=== PATIENT | male | born 1975 | race Two or more races ===

== ENCOUNTER → 2016-06-22 | Outpatient (CLI) | payer BC ==
[2016-06-22 09:39] LABS: BUN/Creatinine Ratio 22.2; Calcium 8.8 mg/dL (8.5-10.1)
== END | disposition home or self-care (01) ==
LOC: LAB 08:08
PROVIDERS: ATTEND Internal Medicine
DX: I10 Essential (primary) hypertension (principal); E11.9 Type 2 diabetes mellitus without complications
CPT/HCPCS: 36415; 80048; 80061; 83036

== ENCOUNTER → 2017-10-07 | Outpatient (CLI) | payer BC ==
[2017-10-07 10:28] LABS: Basophils # (auto) 0.1 uL; Basophils % (auto) 0.8 % (0.0-2.0); Eosinophils # (auto) 0.3 uL; Eosinophils % (auto) 3.6 % (0.0-7.0); Hematocrit 43.9 % (41.0-53.0); Hemoglobin 14.3 g/dL (13.5-17.5); Lymphocytes # (auto) 1.7 uL; Lymphocytes % (auto) 22.4 % (10.0-50.0); Mean Corpuscular Hemoglobin 29.9 pg (28.0-32.0); Mean Corpuscular Hgb Conc. 32.7 g/dL (32.0-36.0); Mean Corpuscular Volume 91.4 fL (80.0-100.0); Monocytes # (auto) 0.6 uL; Monocytes % (auto) 7.6 % (0.0-12.0); Neutrophils # (auto) 4.9 uL; Neutrophils % (auto) 65.6 % (37.0-80.0); Platelet Count (auto) 259 10^3/uL (140-450); Red Cell Distribution Width 13.7 % (11.8-14.3); White Blood Cell 7.5 10^3/uL (4.4-10.8)
[2017-10-07 10:42] LABS: Urine Bacteria FEW /hpf (None Seen); Urine Blood Negative /uL (Negative); Urine Hyaline Cast FEW /lpf (0 - 2); Urine Specific Gravity 1.013 (1.001-1.035); Urine Sperm PRESENT /hpf (None Seen); Urine WBC <1 /hpf (0 - 3)
[2017-10-07 11:56] LABS: Albumin 3.4 g/dL (3.4-5.0); Bilirubin, Total 0.3 mg/dL (0.2-1.0); Calcium 9.3 mg/dL (8.5-10.1); Potassium 5.3 mmol/L (3.5-5.1); Total Protein 7.9 g/dL (6.4-8.2)
== END | disposition home or self-care (01) ==
LOC: LAB 10:08
PROVIDERS: ATTEND Physician Assistant
DX: E11.22 Type 2 diabetes mellitus with diabetic chronic kidney disease (principal); I12.9 Hypertensive chronic kidney disease with stage 1 through stage 4 chronic kidney disease, or unspecified chronic kidney disease; N18.3 Chronic kidney disease, stage 3 (moderate); E78.2 Mixed hyperlipidemia; N52.9 Male erectile dysfunction, unspecified
CPT/HCPCS: 36415; 80053; 80061; 81001; 83036; 84403; 85025

== ENCOUNTER 2018-02-25 14:44 | Inpatient (IN) | payer BC ==
[~2018-02-25] VITALS: Ht 185.4 cm; Wt 125.5 kg
[2018-02-25] MEDS ORDERED: SODIUM CHLORIDE 0.9% 1,000 ML IV ONE (15:30)
[2018-02-25] MEDS ORDERED: InsuLIN REG 1unit/0.01ml Soln (100units/ml) IV ONE (15:45)
[2018-02-25 17:14] LABS: Basophils # (auto) 0 uL; Basophils % (auto) 0.2 % (0.0-2.0); Eosinophils # (auto) 0.1 uL; Eosinophils % (auto) 2.7 % (0.0-7.0); Hematocrit 40.7 % (41.0-53.0); Hemoglobin 13.4 g/dL (13.5-17.5); Lymphocytes # (auto) 0.4 uL; Lymphocytes % (auto) 7.8 % (10.0-50.0); Mean Corpuscular Hemoglobin 29.6 pg (28.0-32.0); Mean Corpuscular Hgb Conc. 32.8 g/dL (32.0-36.0); Mean Corpuscular Volume 90.2 fL (80.0-100.0); Monocytes # (auto) 0.6 uL; Monocytes % (auto) 12.9 % (0.0-12.0); Neutrophils # (auto) 3.5 uL; Neutrophils % (auto) 76.4 % (37.0-80.0); Platelet Count (auto) 201 10^3/uL (140-450); Red Blood Cells 4.52 10^6/uL (4.5-5.90); Red Cell Distribution Width 12.7 % (11.8-14.3); White Blood Cell 4.6 10^3/uL (4.4-10.8)
[2018-02-25] MEDS ORDERED: cefTRIAXone 1GM/10ml IVPUSH 10 ML IV ONE (17:30)
[2018-02-25 17:44] LABS: Potassium 5.3 mmol/L (3.5-5.1)
[2018-02-25 17:45] LABS: BUN/Creatinine Ratio 12.1; Bilirubin, Total 0.3 mg/dL (0.2-1.0); Calcium 8.5 mg/dL (8.5-10.1)
[2018-02-25 17:46] LABS: Albumin 3.3 g/dL (3.4-5.0)
[2018-02-25] MEDS ORDERED: HYDROcodone-ACET 5/325MG TAB PO PRN (21:00)
[2018-02-25] MEDS ORDERED: ONDANSETRON HCL 4 MG/2 ML VIAL IV PRN (21:00)
[2018-02-25] MEDS ORDERED: DEXTROSE (50%) 50ML SYRG IV PRN (21:00)
[2018-02-25] MEDS ORDERED: TEMAZEPAM 15 MG CAP PO PRN (21:00)
[2018-02-25] MEDS ORDERED: ACETAMINOPHEN 325 MG TAB PO PRN (21:00)
[2018-02-25] MEDS: SODIUM CHLORIDE 0.9% 1,000 ML IV SCH (21:13)
[2018-02-25] MEDS: CLINDAMYCIN 600MG IV 50 ML IV SCH (22:19)
[2018-02-26] MEDS: ACCU-CHEK COMFORT CURVE STRIP VI SCH ×4 (00:03→18:12)
[2018-02-26] MEDS: InsuLIN REG 1unit/0.01ml Soln (100units/ml) SC SCH ×4 (00:03→18:19)
[2018-02-26 01:22] LABS: Urine Bacteria NONE SEEN /hpf (None Seen); Urine Blood Negative /uL (Negative); Urine Specific Gravity 1.012 (1.001-1.035); Urine Sperm PRESENT /hpf (None Seen); Urine WBC 25 /hpf (0 - 3)
[2018-02-26] MEDS: CLINDAMYCIN 600MG IV 50 ML IV SCH ×3 (05:46→21:42)
[2018-02-26 07:22] LABS: Hematocrit 39.5 % (41.0-53.0); Hemoglobin 13.3 g/dL (13.5-17.5); Mean Corpuscular Hemoglobin 30.4 pg (28.0-32.0); Mean Corpuscular Hgb Conc. 33.7 g/dL (32.0-36.0); Mean Corpuscular Volume 90.4 fL (80.0-100.0); Platelet Count (auto) 176 10^3/uL (140-450); Red Blood Cells 4.37 10^6/uL (4.5-5.90); Red Cell Distribution Width 12.8 % (11.8-14.3); White Blood Cell 3.4 10^3/uL (4.4-10.8)
[2018-02-26 07:35] LABS: Basophils % (manual) 0 (0.0-2.0); Blast Cells 0; Metamyelocytes % 0; Myelocytes % 0; Promyelocytes % 0; Reactive Lymphocytes 0
[2018-02-26 07:45] LABS: Albumin 2.8 g/dL (3.4-5.0); Potassium 4.4 mmol/L (3.5-5.1)
[2018-02-26 07:47] LABS: Bilirubin, Total 0.2 mg/dL (0.2-1.0); Total Protein 7.2 g/dL (6.4-8.2)
[2018-02-26 08:07] LABS: Band Neutrophils % (manual) 1; Eosinophils % (manual) 8 (0-7); Lymphocytes % (manual) 21 (10.0-50.0); Monocytes % (manual) 11 (0-12)
[2018-02-26 09:00] VITALS: BP 120/71
[2018-02-26] MEDS: cefTRIAXone 1GM/10ml IVPUSH 10 ML IV SCH (09:58)
[2018-02-26] MEDS: SODIUM CHLORIDE 0.9% 1,000 ML IV SCH (10:19)
[2018-02-26 12:00] VITALS: BP 149/77
[2018-02-26 16:00] VITALS: BP 147/70
[2018-02-26 22:00] VITALS: BP 135/74
[2018-02-27] MEDS: ACCU-CHEK COMFORT CURVE STRIP VI SCH ×4 (00:06→17:41)
[2018-02-27] MEDS: SODIUM CHLORIDE 0.9% 1,000 ML IV SCH ×2 (00:06→12:22)
[2018-02-27] MEDS: InsuLIN REG 1unit/0.01ml Soln (100units/ml) SC SCH ×4 (00:07→17:42)
[2018-02-27 05:19] VITALS: BP 129/95
[2018-02-27] MEDS: CLINDAMYCIN 600MG IV 50 ML IV SCH ×3 (06:41→21:26)
[2018-02-27] MEDS: glipiZIDE 5 MG TAB PO SCH ×2 (06:42→17:42)
[2018-02-27 08:43] VITALS: BP 152/91
[2018-02-27] MEDS: cefTRIAXone 1GM/10ml IVPUSH 10 ML IV SCH (09:17)
[2018-02-27 12:10] VITALS: BP 165/101
[2018-02-27] MEDS ORDERED: AMLO10TA12 PO (13:11)
[2018-02-27] MEDS ORDERED: LOSA-46 PO (13:17)
[2018-02-27] MEDS ORDERED: CANA100T OR (13:17)
[2018-02-27] MEDS ORDERED: PIO30T PO (13:17)
[2018-02-27] MEDS ORDERED: PRE5T GT (13:17)
[2018-02-27] MEDS ORDERED: METF-929 PO (13:17)
[2018-02-27] MEDS ORDERED: ATOR40TA52 PO (13:17)
[2018-02-27] MEDS ORDERED: GABA100C9 PO (13:17)
[2018-02-27] MEDS ORDERED: ASPI-231 PO (13:17)
[2018-02-27 17:00] VITALS: BP 152/89
[2018-02-27] MEDS ORDERED: amLODIPine BESYLATE 5 MG TAB PO ONE (18:30)
[2018-02-27 21:18] VITALS: BP 139/85
[2018-02-27] MEDS: METOPROLOL TARTRATE 25 MG TAB PO SCH (21:28)
[2018-02-28] MEDS: InsuLIN REG 1unit/0.01ml Soln (100units/ml) SC SCH ×4 (00:19→17:47)
[2018-02-28] MEDS: ACCU-CHEK COMFORT CURVE STRIP VI SCH ×4 (00:20→17:49)
[2018-02-28] MEDS: SODIUM CHLORIDE 0.9% 1,000 ML IV SCH ×2 (02:36→15:39)
[2018-02-28 05:19] VITALS: BP 117/75
[2018-02-28] MEDS: glipiZIDE 5 MG TAB PO SCH ×2 (06:17→17:46)
[2018-02-28] MEDS: CLINDAMYCIN 600MG IV 50 ML IV SCH ×3 (06:17→22:17)
[2018-02-28 09:00] VITALS: BP 109/65
[2018-02-28] MEDS: cefTRIAXone 1GM/10ml IVPUSH 10 ML IV SCH (09:34)
[2018-02-28] MEDS: amLODIPine BESYLATE 5 MG TAB PO SCH (09:35)
[2018-02-28] MEDS: METOPROLOL TARTRATE 25 MG TAB PO SCH ×2 (09:37→22:00)
[2018-02-28 13:00] VITALS: BP 120/65
[2018-02-28 13:48] LABS: Protein, Urine 38.7 mg/dL (0.0-11.9)
[2018-02-28 16:39] VITALS: BP 126/80
[2018-02-28 22:00] VITALS: BP 130/76
[2018-03-01] MEDS: ACCU-CHEK COMFORT CURVE STRIP VI SCH ×3 (00:19→11:32)
[2018-03-01] MEDS: InsuLIN REG 1unit/0.01ml Soln (100units/ml) SC SCH ×3 (00:19→11:31)
[2018-03-01 05:00] VITALS: BP 101/61
[2018-03-01] MEDS: glipiZIDE 5 MG TAB PO SCH (06:32)
[2018-03-01] MEDS: CLINDAMYCIN 600MG IV 50 ML IV SCH (06:32)
[2018-03-01] MEDS: SODIUM CHLORIDE 0.9% 1,000 ML IV SCH (06:33)
[2018-03-01 08:40] VITALS: BP 139/92
[2018-03-01] MEDS: cefTRIAXone 1GM/10ml IVPUSH 10 ML IV SCH (09:00)
[2018-03-01] MEDS: amLODIPine BESYLATE 5 MG TAB PO SCH (09:46)
[2018-03-01] MEDS: METOPROLOL TARTRATE 25 MG TAB PO SCH (09:46)
[2018-03-01] MEDS ORDERED: CEFI200S2 PO (10:51)
[2018-03-01 10:56] VITALS: BP 144/84
[2018-03-01 12:07] VITALS: BP 147/86
== END 2018-03-01 12:05 | disposition home or self-care (01) | DRG 602 ==
LOC: ER 14:44 → OVERFLOW 14:45 → CENTRAL 02-26 08:33
PROVIDERS: ADMIT Nurse Practitioner; ATTEND Internal Medicine Pulmonary Disease
DX: L02.415 Cutaneous abscess of right lower limb (principal); N17.0 Acute kidney failure with tubular necrosis; L03.314 Cellulitis of groin; N18.4 Chronic kidney disease, stage 4 (severe); E44.0 Moderate protein-calorie malnutrition; E87.1 Hypo-osmolality and hyponatremia; E11.65 Type 2 diabetes mellitus with hyperglycemia; E11.22 Type 2 diabetes mellitus with diabetic chronic kidney disease; E78.5 Hyperlipidemia, unspecified; E83.51 Hypocalcemia; E66.9 Obesity, unspecified; B96.20 Unspecified Escherichia coli [E. coli] as the cause of diseases classified elsewhere; E11.42 Type 2 diabetes mellitus with diabetic polyneuropathy; D63.8 Anemia in other chronic diseases classified elsewhere; I12.9 Hypertensive chronic kidney disease with stage 1 through stage 4 chronic kidney disease, or unspecified chronic kidney disease; Z68.36 Body mass index [BMI] 36.0-36.9, adult; Z91.030 Bee allergy status; Z79.84 Long term (current) use of oral hypoglycemic drugs
CPT/HCPCS: 36415; 71046; 76775; 80053; 81001; 82570; 82962; 83036; 84156; 84300; 85007; 85025; 85027; 87040; 87077; 87186; 87205; 93005; 94761; 96361; 96374; 96375; A6257; J0696; J1815; J3490

== ENCOUNTER → 2018-03-17 | Outpatient (CLI) | payer BC ==
[~2018-03-17] MED LIST: AMLO10TA12 PO; ASPI-231 PO; ATOR40TA52 PO; CANA100T OR; CEFI200S2 PO; GABA100C9 PO; LOSA-46 PO; METF-929 PO; PIO30T PO; PRE5T GT
[2018-03-17 08:37] LABS: Basophils # (auto) 0.1 uL; Basophils % (auto) 0.9 % (0.0-2.0); Eosinophils # (auto) 0.2 uL; Eosinophils % (auto) 2.3 % (0.0-7.0); Hemoglobin 14.9 g/dL (13.5-17.5); Lymphocytes # (auto) 1.6 uL; Lymphocytes % (auto) 20.2 % (10.0-50.0); Mean Corpuscular Hemoglobin 30.7 pg (28.0-32.0); Mean Corpuscular Hgb Conc. 33.8 g/dL (32.0-36.0); Mean Corpuscular Volume 90.8 fL (80.0-100.0); Monocytes # (auto) 0.5 uL; Monocytes % (auto) 6.8 % (0.0-12.0); Neutrophils # (auto) 5.6 uL; Neutrophils % (auto) 69.8 % (37.0-80.0); Platelet Count (auto) 208 10^3/uL (140-450); Red Blood Cells 4.84 10^6/uL (4.5-5.90); Red Cell Distribution Width 12.9 % (11.8-14.3); White Blood Cell 8.1 10^3/uL (4.4-10.8)
[2018-03-17 08:40] LABS: Urine Bacteria FEW /hpf (None Seen); Urine Blood Negative /uL (Negative); Urine Specific Gravity 1.018 (1.001-1.035); Urine WBC 3 /hpf (0 - 3)
[2018-03-17 09:33] LABS: BUN/Creatinine Ratio 24.3; Calcium 9.3 mg/dL (8.5-10.1); Potassium 4.8 mmol/L (3.5-5.1); Uric Acid 10.7 mg/dL (3.5-7.2)
[2018-03-17 09:42] LABS: Protein, Urine 27.6 mg/dL (0.0-11.9)
== END | disposition home or self-care (01) ==
LOC: LAB 08:12
PROVIDERS: ATTEND Student in an Organized Health Care Education/Training Program
DX: E55.9 Vitamin D deficiency, unspecified (principal); N18.3 Chronic kidney disease, stage 3 (moderate); M10.9 Gout, unspecified; R80.9 Proteinuria, unspecified; R79.82 Elevated C-reactive protein (CRP)
CPT/HCPCS: 36415; 80048; 81001; 82306; 82570; 84156; 84550; 85025; 86038; 86160; 86256

== ENCOUNTER → 2018-08-26 | Outpatient (CLI) | payer BC ==
[2018-08-26 08:36] LABS: Urine Bacteria NONE SEEN /hpf (None Seen); Urine Blood Negative /uL (Negative); Urine Specific Gravity 1.018 (1.001-1.035); Urine WBC 2 /hpf (0 - 3)
[2018-08-26 08:37] LABS: Basophils # (auto) 0 uL; Basophils % (auto) 0.5 % (0.0-2.0); Eosinophils # (auto) 0.2 uL; Hematocrit 47.5 % (41.0-53.0); Hemoglobin 15.6 g/dL (13.5-17.5); Lymphocytes # (auto) 1.6 uL; Lymphocytes % (auto) 20.3 % (10.0-50.0); Mean Corpuscular Hemoglobin 30.5 pg (28.0-32.0); Mean Corpuscular Hgb Conc. 32.8 g/dL (32.0-36.0); Monocytes # (auto) 0.6 uL; Monocytes % (auto) 7.7 % (0.0-12.0); Neutrophils # (auto) 5.4 uL; Neutrophils % (auto) 69.5 % (37.0-80.0); Nucleated Red Blood Cells % 0.1 %; Platelet Count (auto) 257 10^3/uL (140-450); Red Blood Cells 5.11 10^6/uL (4.5-5.90); Red Cell Distribution Width 12.8 % (11.8-14.3); White Blood Cell 7.7 10^3/uL (4.4-10.8)
[2018-08-26 08:59] LABS: Albumin 3.5 g/dL (3.4-5.0); Calcium 9.7 mg/dL (8.5-10.1); Potassium 4.7 mmol/L (3.5-5.1)
[2018-08-26 09:10] LABS: BUN/Creatinine Ratio 19.4; Bilirubin, Total 0.6 mg/dL (0.2-1.0); Total Protein 8.2 g/dL (6.4-8.2)
== END | disposition home or self-care (01) ==
LOC: LAB 07:56
PROVIDERS: ATTEND Physician Assistant
DX: Z12.5 Encounter for screening for malignant neoplasm of prostate (principal); I12.9 Hypertensive chronic kidney disease with stage 1 through stage 4 chronic kidney disease, or unspecified chronic kidney disease; E11.22 Type 2 diabetes mellitus with diabetic chronic kidney disease; N18.3 Chronic kidney disease, stage 3 (moderate); E11.29 Type 2 diabetes mellitus with other diabetic kidney complication; E11.40 Type 2 diabetes mellitus with diabetic neuropathy, unspecified; E78.2 Mixed hyperlipidemia; E55.9 Vitamin D deficiency, unspecified
CPT/HCPCS: 36415; 80053; 80061; 81001; 82306; 83036; 84153; 85025

== ENCOUNTER 2018-10-25 12:42 | Inpatient (IN) | payer BC | END 2018-10-25 17:30 | disposition left against medical advice (07) | LOC: ER 12:42 → TELE-WESTW 15:44 ==

== ENCOUNTER → 2019-03-31 | Outpatient (CLI) | payer BC ==
[~2019-03-31] MED LIST changes: -AMLO10TA12 PO; +AMLO10TA13 PO; -LOSA-46 PO; +LOSA-69 PO
[2019-03-31 10:57] LABS: Basophils # (auto) 0.1 uL; Basophils % (auto) 0.8 % (0.0-2.0); Eosinophils # (auto) 0.3 uL; Hematocrit 43.5 % (41.0-53.0); Hemoglobin 14.3 g/dL (13.5-17.5); Lymphocytes # (auto) 1.9 uL; Lymphocytes % (auto) 27.1 % (10.0-50.0); Mean Corpuscular Hemoglobin 29.5 pg (28.0-32.0); Mean Corpuscular Hgb Conc. 32.8 g/dL (32.0-36.0); Mean Corpuscular Volume 89.8 fL (80.0-100.0); Monocytes # (auto) 0.4 uL; Monocytes % (auto) 5.9 % (0.0-12.0); Neutrophils # (auto) 4.3 uL; Neutrophils % (auto) 62.2 % (37.0-80.0); Nucleated Red Blood Cells % 0.1 %; Platelet Count (auto) 199 10^3/uL (140-450); Red Blood Cells 4.84 10^6/uL (4.5-5.90); Red Cell Distribution Width 12.3 % (11.8-14.3); White Blood Cell 6.9 10^3/uL (4.4-10.8)
[2019-03-31 10:58] LABS: Urine Bacteria NONE SEEN /hpf (None Seen); Urine Blood Negative /uL (Negative); Urine Specific Gravity 1.011 (1.001-1.035); Urine WBC 4 /hpf (0 - 3)
[2019-03-31 11:19] LABS: Albumin 3.4 g/dL (3.4-5.0); Calcium 9.3 mg/dL (8.5-10.1)
[2019-03-31 11:23] LABS: BUN/Creatinine Ratio 24.2; Bilirubin, Total 0.4 mg/dL (0.2-1.0); Total Protein 7.9 g/dL (6.4-8.2); Uric Acid 8.1 mg/dL (3.5-7.2)
== END | disposition home or self-care (01) ==
LOC: LAB 10:25
PROVIDERS: ATTEND Internal Medicine
DX: E78.2 Mixed hyperlipidemia (principal); E11.22 Type 2 diabetes mellitus with diabetic chronic kidney disease; E55.9 Vitamin D deficiency, unspecified
CPT/HCPCS: 36415; 80053; 80061; 81001; 82043; 83036; 84403; 84443; 84550; 85025

== ENCOUNTER → 2019-04-30 | Outpatient (CLI) | payer BC ==
[~2019-04-30] MED LIST changes: +METF-371 PO
== END | disposition home or self-care (01) ==
LOC: XY 08:21
PROVIDERS: ATTEND Internal Medicine
DX: E11.621 Type 2 diabetes mellitus with foot ulcer (principal); E11.22 Type 2 diabetes mellitus with diabetic chronic kidney disease; E11.21 Type 2 diabetes mellitus with diabetic nephropathy; L97.509 Non-pressure chronic ulcer of other part of unspecified foot with unspecified severity; I12.9 Hypertensive chronic kidney disease with stage 1 through stage 4 chronic kidney disease, or unspecified chronic kidney disease; N18.9 Chronic kidney disease, unspecified; E66.9 Obesity, unspecified; Z91.030 Bee allergy status
CPT/HCPCS: 93925

== ENCOUNTER → 2019-05-20 | Day surgery (SDC) | payer BC ==
[2019-05-19 14:22] LABS: INR 1.19 (0.9-1.15)
[2019-05-19 14:23] LABS: Basophils # (auto) 0.1 uL; Basophils % (auto) 0.9 % (0.0-2.0); Eosinophils # (auto) 0.3 uL; Hemoglobin 8.9 g/dL (13.5-17.5); Lymphocytes # (auto) 1.5 uL; Monocytes # (auto) 0.6 uL; Monocytes % (auto) 6.4 % (0.0-12.0); Neutrophils # (auto) 7.1 uL
[2019-05-19 14:25] LABS: Eosinophils % (auto) 2.8 % (0.0-7.0); Lymphocytes % (auto) 15.3 % (10.0-50.0); Mean Corpuscular Hemoglobin 29.3 pg (28.0-32.0); Mean Corpuscular Hgb Conc. 33.1 g/dL (32.0-36.0); Mean Corpuscular Volume 88.5 fL (80.0-100.0); Neutrophils % (auto) 74.6 % (37.0-80.0); Platelet Count (auto) 641 10^3/uL (140-450); Red Blood Cells 3.05 10^6/uL (4.5-5.90); Red Cell Distribution Width 13.9 % (11.8-14.3); Urine Bacteria FEW /hpf (None Seen); Urine Blood Negative /uL (Negative); Urine Hyaline Cast FEW /lpf (0 - 2); Urine Mucus FEW (None Seen); Urine Specific Gravity 1.013 (1.001-1.035); Urine WBC 3 /hpf (0 - 3); White Blood Cell 9.5 10^3/uL (4.4-10.8)
[2019-05-19 14:27] LABS: Albumin 2.2 g/dL (3.4-5.0); Calcium 8.6 mg/dL (8.5-10.1); Potassium 4.4 mmol/L (3.5-5.1)
[2019-05-19 14:29] LABS: BUN/Creatinine Ratio 15.3; Bilirubin, Total 0.3 mg/dL (0.2-1.0); Total Protein 8.7 g/dL (6.4-8.2)
[~2019-05-20] VITALS: Ht 185.4 cm; Wt 113.9 kg
[~2019-05-20] MED LIST changes: -AMLO10TA13 PO; -ASPI-231 PO; -ATOR40TA52 PO; -CANA100T OR; -CEFI200S2 PO; +DEXTROSE 50% SYRINGE 50 ML IV ONE; -GABA100C9 PO; -LOSA-69 PO; -METF-929 PO; +MIDAZOLAM HCL 1MG/1ML-2 ML VIAL ONE; +ONDANSETRON HCL 4 MG/2 ML VIAL IV PRN; -PIO30T PO; -PRE5T GT; +PROPOFOL 10 MG/ML 20 ML IV ONE; +ROPIVACAINE 0.5% (5MG/ML) 20ML AMPULE IJ ONE; +ceFAZolin 1GM VL ONE; +ceFAZolin 1GM/50ML 50 ML IV ONE; +ePHEDrine SULFATE 50 MG/ML AMP IV PRN; +fentaNYL CITRATE 100 MCG/2 ML VL IV ONE; +fentaNYL CITRATE 100 MCG/2 ML VL IV PRN; +fentaNYL CITRATE 100 MCG/2 ML VL ONE; +hydrALAZINE HCL 20 MG/ML VL IV PRN
[2019-05-20 12:34] VITALS: BP 156/91
== END | disposition home or self-care (01) ==
LOC: SUR 10:28
PROVIDERS: ATTEND Podiatrist Foot & Ankle Surgery
DX: L03.115 Cellulitis of right lower limb (principal); E11.22 Type 2 diabetes mellitus with diabetic chronic kidney disease; I12.9 Hypertensive chronic kidney disease with stage 1 through stage 4 chronic kidney disease, or unspecified chronic kidney disease; N18.3 Chronic kidney disease, stage 3 (moderate); Z79.84 Long term (current) use of oral hypoglycemic drugs; Z91.030 Bee allergy status
CPT/HCPCS: 10060; 36415; 80053; 81001; 82962; 85025; 85610; 85730; 87070; 87075; 87205; C1887; J0690; J2250; J2704; J3010; J7042; L3260

== ENCOUNTER → 2019-07-08 | Day surgery (SDC) | payer BC ==
[2019-07-07 10:31] LABS: Basophils # (auto) 0.1 uL; Basophils % (auto) 1.2 % (0.0-2.0); Eosinophils # (auto) 0.2 uL; Eosinophils % (auto) 3.9 % (0.0-7.0); Hematocrit 34.2 % (41.0-53.0); Hemoglobin 11.1 g/dL (13.5-17.5); Lymphocytes # (auto) 1.9 uL; Lymphocytes % (auto) 30.4 % (10.0-50.0); Mean Corpuscular Hgb Conc. 32.4 g/dL (32.0-36.0); Mean Corpuscular Volume 83.3 fL (80.0-100.0); Monocytes # (auto) 0.5 uL; Monocytes % (auto) 8.3 % (0.0-12.0); Neutrophils # (auto) 3.5 uL; Neutrophils % (auto) 56.2 % (37.0-80.0); Platelet Count (auto) 433 10^3/uL (140-450); Red Blood Cells 4.11 10^6/uL (4.5-5.90); White Blood Cell 6.3 10^3/uL (4.4-10.8)
[2019-07-07 10:55] LABS: INR 1.07 (0.9-1.15); Partial Thromboplastin Time 30.7 sec (23.64-32.05)
[2019-07-07 10:59] LABS: Albumin 2.9 g/dL (3.4-5.0); Calcium 9.1 mg/dL (8.5-10.1)
[2019-07-07 11:05] LABS: Bilirubin, Total 0.3 mg/dL (0.2-1.0); Potassium 5.1 mmol/L (3.5-5.1); Total Protein 8.6 g/dL (6.4-8.2)
[2019-07-07 11:15] LABS: Urine Bacteria NONE SEEN /hpf (None Seen); Urine Blood Negative /uL (Negative); Urine Specific Gravity 1.013 (1.001-1.035); Urine WBC 1 /hpf (0 - 3)
[~2019-07-08] VITALS: Ht 185.4 cm; Wt 113.4 kg
[~2019-07-08] MED LIST changes: +ACCU-CHEK COMFORT CURVE STRIP VI ONE; -DEXTROSE 50% SYRINGE 50 ML IV ONE; +HYDROmorphone HCL 2 MG/ML VL IV PRN; +INSUINJ37 SC; -METF-371 PO; +METOCLOPRAMIDE HCL 5MG/ml INJ 2ml VIAL IV PRN; +MORPHINE SULFATE 4 MG/ML SYR/VIAL IV PRN; -ONDANSETRON HCL 4 MG/2 ML VIAL IV PRN; +ONDANSETRON HCL 4 MG/2 ML VIAL ONE; -ROPIVACAINE 0.5% (5MG/ML) 20ML AMPULE IJ ONE; +SODIUM CHLORIDE LOCK 10 ML ONE; -ePHEDrine SULFATE 50 MG/ML AMP IV PRN; -fentaNYL CITRATE 100 MCG/2 ML VL IV ONE; -hydrALAZINE HCL 20 MG/ML VL IV PRN
[2019-07-08 10:16] VITALS: BP 150/92
== END | disposition home or self-care (01) ==
LOC: SUR 07:13
PROVIDERS: ATTEND Podiatrist Foot & Ankle Surgery
DX: E11.621 Type 2 diabetes mellitus with foot ulcer (principal); L97.528 Non-pressure chronic ulcer of other part of left foot with other specified severity; E11.22 Type 2 diabetes mellitus with diabetic chronic kidney disease; I12.9 Hypertensive chronic kidney disease with stage 1 through stage 4 chronic kidney disease, or unspecified chronic kidney disease; N18.3 Chronic kidney disease, stage 3 (moderate); E78.00 Pure hypercholesterolemia, unspecified; Z79.899 Other long term (current) drug therapy; Z79.4 Long term (current) use of insulin; Z91.030 Bee allergy status
CPT/HCPCS: 15275; 36415; 80053; 81001; 82962; 85025; 85610; 85730; C1887; J0690; J2250; J2405; J2704; J3010; Q4161

== ENCOUNTER → 2019-07-17 | Outpatient (CLI) | payer BC ==
[~2019-07-17] MED LIST changes: -ACCU-CHEK COMFORT CURVE STRIP VI ONE; -HYDROmorphone HCL 2 MG/ML VL IV PRN; -METOCLOPRAMIDE HCL 5MG/ml INJ 2ml VIAL IV PRN; -MIDAZOLAM HCL 1MG/1ML-2 ML VIAL ONE; -MORPHINE SULFATE 4 MG/ML SYR/VIAL IV PRN; -ONDANSETRON HCL 4 MG/2 ML VIAL ONE; -PROPOFOL 10 MG/ML 20 ML IV ONE; -SODIUM CHLORIDE LOCK 10 ML ONE; -ceFAZolin 1GM VL ONE; -ceFAZolin 1GM/50ML 50 ML IV ONE; -fentaNYL CITRATE 100 MCG/2 ML VL IV PRN; -fentaNYL CITRATE 100 MCG/2 ML VL ONE
[2019-07-17 09:22] LABS: Albumin 3.1 g/dL (3.4-5.0); Calcium 9.1 mg/dL (8.5-10.1); Potassium 4.8 mmol/L (3.5-5.1)
[2019-07-17 09:28] LABS: BUN/Creatinine Ratio 16.8; Bilirubin, Total 0.4 mg/dL (0.2-1.0); Total Protein 8.3 g/dL (6.4-8.2); Uric Acid 7.1 mg/dL (3.5-7.2)
== END | disposition home or self-care (01) ==
LOC: LAB 08:46
PROVIDERS: ATTEND Internal Medicine
DX: E11.22 Type 2 diabetes mellitus with diabetic chronic kidney disease (principal); N18.3 Chronic kidney disease, stage 3 (moderate)
CPT/HCPCS: 36415; 80053; 80061; 83036; 84550

== ENCOUNTER 2019-07-24 10:09 | Inpatient (IN) | payer BC, OTHER ==
[~2019-07-24] VITALS: Ht 185.4 cm; Wt 116.0 kg
[2019-07-24 11:05] LABS: Basophils # (auto) 0.1 uL; Basophils % (auto) 1.1 % (0.0-2.0); Eosinophils # (auto) 0.4 uL; Eosinophils % (auto) 7.4 % (0.0-7.0); Hematocrit 38.1 % (41.0-53.0); Hemoglobin 12.3 g/dL (13.5-17.5); Lymphocytes # (auto) 1.7 uL; Lymphocytes % (auto) 33.4 % (10.0-50.0); Mean Corpuscular Hemoglobin 27.4 pg (28.0-32.0); Mean Corpuscular Hgb Conc. 32.3 g/dL (32.0-36.0); Mean Corpuscular Volume 84.9 fL (80.0-100.0); Monocytes # (auto) 0.4 uL; Monocytes % (auto) 8.4 % (0.0-12.0); Neutrophils # (auto) 2.5 uL; Neutrophils % (auto) 49.7 % (37.0-80.0); Nucleated Red Blood Cells % 0.1 %; Platelet Count (auto) 272 10^3/uL (140-450); Red Blood Cells 4.49 10^6/uL (4.5-5.90); Red Cell Distribution Width 16.6 % (11.8-14.3); White Blood Cell 5.1 10^3/uL (4.4-10.8)
[2019-07-24 11:20] LABS: INR 0.98 (0.9-1.15); Partial Thromboplastin Time 27.6 sec (23.64-32.05)
[2019-07-24 11:24] LABS: Calcium 8.8 mg/dL (8.5-10.1); Potassium 5.1 mmol/L (3.5-5.1)
[2019-07-24 11:30] LABS: BUN/Creatinine Ratio 13.7; Bilirubin, Total 0.2 mg/dL (0.2-1.0); Total Protein 8.1 g/dL (6.4-8.2)
[2019-07-24] MEDS ORDERED: traMADol HCL 50 MG TAB PO PRN (11:45)
[2019-07-24] MEDS ORDERED: DEXTROSE (50%) 50ML SYRG IV PRN (11:45)
[2019-07-24] MEDS ORDERED: LACTULOSE 20Gm/30ML SOLN PO PRN (11:45)
[2019-07-24] MEDS ORDERED: PROMETHAZINE HCL 25 MG/ML 1ML IV PRN (11:45)
[2019-07-24] MEDS ORDERED: cefTRIAXone 1GM/50ML D5W 50 ML IV ONE (11:45)
[2019-07-24] MEDS ORDERED: TEMAZEPAM 15 MG CAP PO PRN (11:45)
[2019-07-24] MEDS ORDERED: ACETAMINOPHEN 500 MG TAB PO PRN (11:45)
[2019-07-24] MEDS: SODIUM CHLORIDE 0.9% 1,000 ML IV SCH ×2 (14:30→22:33)
--- NOTE | 2019-07-24 14:51 | NUR ---
PATIENT ARRIVED TO UNIT PATIENT ALERT AND ORIENTED X4 ORIENTED PATIENT TO UNIT STAFF CALL LIGHT VISITING HOURS AND POC PATIENT VERBALIZED UNDERSTANDING. PATIENT DENIES ALL PAIN SOB AND DISTRESS AT THIS TIME. PICTURES TAKEN OF PATIENT AFFECTED FOOT. FALL BAND PLACED DUE TO PATIENTS FALL FEW MONTHS BACK DUE TO FOOT. PATIENT CURRENTLY AMBULATES WITH STEADY GAIT BUT EDUCATED TO CALL FOR ASSISTANCE WHEN GETTING OUT BED. BED IN LOWEST LOCKED POSITION CALL LIGHT WITHIN REACH WILL CONTINUE TO MONITOR
[2019-07-24 16:10] VITALS: BP 137/80
[2019-07-24 16:49] VITALS: BP 127/69
[2019-07-24] MEDS: InsuLIN REG 1unit/0.01ml Soln (100units/ml) SC SCH ×2 (17:00→22:47)
[2019-07-24] MEDS: ACCU-CHEK COMFORT CURVE STRIP VI SCH ×2 (17:00→22:00)
--- NOTE | 2019-07-24 17:10 | NUR ---
UA AND MRSA SWAB OBTAINED AND SENT TO LAB
[2019-07-24 17:58] LABS: Urine Bacteria NONE SEEN /hpf (None Seen); Urine Blood Negative /uL (Negative); Urine WBC 3 /hpf (0 - 3)
[2019-07-24 22:14] VITALS: BP 121/68
[2019-07-24] MEDS: INSULIN LANTUS (GLARGINE) 1 /0.01ml (100units/ml) SC SCH (22:47)
[2019-07-24] MEDS: LINEZOLID 600MG/300ML 300 ML IV SCH (22:48)
--- NOTE | 2019-07-25 03:00 | NUR ---
Opening Shift Note Assumed care of patient. No S/S of distress/SOB or pain. Instructed on POC and to call for assist PRN, will continue to monitor for changes Q1hr and PRN.
[2019-07-25] MEDS: ACCU-CHEK COMFORT CURVE STRIP VI SCH ×4 (06:56→22:05)
[2019-07-25] MEDS: InsuLIN REG 1unit/0.01ml Soln (100units/ml) SC SCH ×4 (06:56→22:17)
[2019-07-25] MEDS: SODIUM CHLORIDE 0.9% 1,000 ML IV SCH ×2 (07:38→17:38)
[2019-07-25] MEDS: cefTRIAXone 1GM/50ML D5W 50 ML IV SCH (08:35)
[2019-07-25 09:00] VITALS: BP 153/87
[2019-07-25] MEDS: ENOXAPARIN SOD 40 MG/0.4 ML SYRINGE SC SCH (09:27)
[2019-07-25] MEDS: LINEZOLID 600MG/300ML 300 ML IV SCH ×2 (09:27→22:05)
--- NOTE | 2019-07-25 09:45 | NUR ---
MD FISHER AT BED SIDE DISCUSSING POC WITH PATIENT. PATIENT VERBALIZES UNDERSTANDING. NEW ORDERS RECEIVED.
--- NOTE | 2019-07-25 12:00 | NUR ---
ULTRASOUND AT BED SIDE
[2019-07-25 13:00] VITALS: BP 145/83
[2019-07-25 17:15] VITALS: BP 163/93
[2019-07-25 18:47] VITALS: BP 159/86
[2019-07-25 20:10] VITALS: BP 157/89
--- NOTE | 2019-07-25 20:10 | NUR ---
Opening Shift Note Assumed care of patient, awake and alert. No S/S of distress/SOB. Patient is on room air. Respirations even and unlabored. Dressing to left foot is clean, dry, and intact. Instructed on POC and to call for assist PRN, will continue to monitor for changes Q1hr and PRN.
[2019-07-25 22:00] VITALS: BP 157/89
[2019-07-25] MEDS: INSULIN LANTUS (GLARGINE) 1 /0.01ml (100units/ml) SC SCH (22:16)
[2019-07-26] MEDS: SODIUM CHLORIDE 0.9% 1,000 ML IV SCH ×3 (03:20→23:08)
[2019-07-26 05:00] VITALS: BP 141/85
[2019-07-26] MEDS: ACCU-CHEK COMFORT CURVE STRIP VI SCH ×4 (06:19→21:41)
[2019-07-26] MEDS: InsuLIN REG 1unit/0.01ml Soln (100units/ml) SC SCH ×4 (06:19→21:53)
--- NOTE | 2019-07-26 07:00 | NUR ---
CLOSING NOTE No S/S of distress/SOB. Patient is on room air. Respirations even and unlabored. Dressing to left foot is clean, dry, and intact.
--- NOTE | 2019-07-26 07:30 | NUR ---
Opening Shift Note Assumed care of patient, awake and alert. No S/S of distress/SOB or pain. Instructed on POC and to call for assist PRN, will continue to monitor for changes Q1hr and PRN. Bed in low and locked position, rails up x2, no-slip socks on. Dressing to left foot in place, patient stated Dr Raza is to removed the dressing in his office, refusing assessment at this time.
[2019-07-26 09:10] VITALS: BP 144/95
[2019-07-26] MEDS: ENOXAPARIN SOD 40 MG/0.4 ML SYRINGE SC SCH (09:37)
[2019-07-26] MEDS: LINEZOLID 600MG/300ML 300 ML IV SCH ×2 (09:37→23:07)
[2019-07-26] MEDS: cefTRIAXone 1GM/50ML D5W 50 ML IV SCH (09:38)
--- NOTE | 2019-07-26 10:30 | NUR ---
NO PICC LINE NURSE AVAILABLE TODAY SPOKE TO [employer].
[2019-07-26 13:00] VITALS: BP 132/71
[2019-07-26] MEDS: metroNIDAZOLE 500MG/100ML 100 ML IV SCH ×2 (13:45→21:41)
[2019-07-26 17:10] VITALS: BP 157/94
[2019-07-26 20:10] VITALS: BP 156/91
[2019-07-26] MEDS: INSULIN LANTUS (GLARGINE) 1 /0.01ml (100units/ml) SC SCH (21:53)
[2019-07-26 22:00] VITALS: BP 156/91
[2019-07-27 05:00] VITALS: BP 168/91
--- NOTE | 2019-07-27 05:49 | NUR ---
ELEVATED BLOOD PRESSURE PATIENT'S BLOOD PRESSURE REASSESSED AND IS 179/97. PATIENT DENIES CHEST PAIN AND DENIES SHORTNESS OF BREATH. PATIENT ASYMPTOMATIC.
[2019-07-27] MEDS: metroNIDAZOLE 500MG/100ML 100 ML IV SCH (05:51)
--- NOTE | 2019-07-27 05:52 | NUR ---
HOSPITALIST PAGED REGARDING PATIENT'S BLOOD PRESSURE OF 179/79 AND NO PRN BP MEDICATIONS AVAILABLE. AWAITING CALLBACK AT THIS TIME.
--- NOTE | 2019-07-27 05:54 | NUR ---
DR. ALEXANDER CALLED BACK REGARDING PATIENT'S BLOOD PRESSURE OF 179/79. NEW ORDER RECEIVED: HYDRALAZINE 50 MG PO EVERY 8 HOURS NEEDED FOR SYSTOLIC BLOOD PRESSURE ABOVE 160.
[2019-07-27] MEDS ORDERED: hydrALAZINE HCL 25 MG TAB PO SCH ×2 (06:00→14:00)
[2019-07-27] MEDS: ACCU-CHEK COMFORT CURVE STRIP VI SCH ×4 (06:21→23:47)
[2019-07-27] MEDS: InsuLIN REG 1unit/0.01ml Soln (100units/ml) SC SCH ×4 (06:21→23:47)
[2019-07-27 06:25] LABS: Potassium 4.9 mmol/L (3.5-5.1)
--- NOTE | 2019-07-27 06:25 | NUR ---
PHARMACY CONTACTED REGARDING ORDER FOR HYDRALAZINE BEING INPUTTED INCORRECTLY SCHEDULED MEDICATION RATHER THAN PRN MEDICATION EVERY 8 HOURS FOR SYSTOLIC BLOOD PRESSURE ABOVE 160. AWAITING CORRECTION OF ORDER.
[2019-07-27 06:28] LABS: BUN/Creatinine Ratio 14.8; Basophils # (auto) 0 uL; Basophils % (auto) 1.1 % (0.0-2.0); Calcium 8.8 mg/dL (8.5-10.1); Eosinophils # (auto) 0.3 uL; Eosinophils % (auto) 7.5 % (0.0-7.0); Hematocrit 34.6 % (41.0-53.0); Hemoglobin 11.3 g/dL (13.5-17.5); Lymphocytes # (auto) 1.4 uL; Lymphocytes % (auto) 30.7 % (10.0-50.0); Mean Corpuscular Hemoglobin 27.9 pg (28.0-32.0); Mean Corpuscular Hgb Conc. 32.7 g/dL (32.0-36.0); Mean Corpuscular Volume 85.3 fL (80.0-100.0); Monocytes # (auto) 0.6 uL; Monocytes % (auto) 12.6 % (0.0-12.0); Neutrophils # (auto) 2.2 uL; Neutrophils % (auto) 48.1 % (37.0-80.0); Nucleated Red Blood Cells % 0.1 %; Platelet Count (auto) 221 10^3/uL (140-450); Red Blood Cells 4.06 10^6/uL (4.5-5.90); Red Cell Distribution Width 16.5 % (11.8-14.3); White Blood Cell 4.6 10^3/uL (4.4-10.8)
--- NOTE | 2019-07-27 06:52 | NUR ---
FAM FROM PHARMACY CONTACTED REGARDING HYDRALAZINE ORDER BEING INPUTTED INCORRECTLY SCHEDULED MEDICATION RATHER THAN PRN MEDICATION FOR EVERY 8 HOURS NEEDED FOR SYSTOLIC BLOOD PRESSURE ABOVE 160. FAM STATES PHARMACIST WILL CORRECT ORDER.
[2019-07-27] MEDS ORDERED: hydrALAZINE HCL 25 MG TAB PO PRN ×2 (07:00)
--- NOTE | 2019-07-27 07:00 | NUR ---
CLOSING NOTE No S/S of distress/SOB. Patient is on room air. Respirations even and unlabored. Dressing to left foot is clean, dry, and intact. Day shift RN made aware of patient's elevated blood pressure and recent administration of PRN BP medication. Patient asymptomatic.
--- NOTE | 2019-07-27 07:30 | NUR ---
Opening Shift Note Assumed care of patient, awake and alert. No S/S of distress/SOB or pain. Instructed on POC and to call for assist PRN, will continue to monitor for changes Q1hr and PRN. Bed in low and locked position, rails up x2, no-slip socks on.
[2019-07-27 09:00] VITALS: BP 145/76
[2019-07-27] MEDS: LINEZOLID 600MG/300ML 300 ML IV SCH (09:26)
[2019-07-27] MEDS: ENOXAPARIN SOD 40 MG/0.4 ML SYRINGE SC SCH (09:26)
[2019-07-27] MEDS: SODIUM CHLORIDE 0.9% 1,000 ML IV SCH (09:26)
[2019-07-27] MEDS: cefTRIAXone 1GM/50ML D5W 50 ML IV SCH (09:26)
--- NOTE | 2019-07-27 10:00 | NUR ---
DR MORELAND AT BEDSIDE NEW ORDERS ADDED
--- NOTE | 2019-07-27 12:03 | NUR ---
Discharge planning per consult, patient has orders for IV ABX x 4 weeks. Referral sent to [facility] [phone] for home health IV Medication. Nurse Mary Ann was advised and PICC line placement is pending. Addendum: 07/27/19 at 1256 by KEVON FLANNERY Received a call from Migdalia at [facility] advising that they do not accept and that it should be [facility] [phone] or [facility] [phone] who is contracted. Referral sent to both infusion companies.
[2019-07-27 12:59] VITALS: BP 147/93
--- NOTE | 2019-07-27 14:00 | NUR ---
[facility] CONTACTED REGARDING NEED FOR WALKING BOOT.
--- NOTE | 2019-07-27 14:24 | NUR ---
Assessment Pt is a 43 yr old alert and oriented male. Pt lives alone and gave his friend, Philipp, name as his emergency contact at [phone]. Prior to admit, pt used no DME, was ambulatory and was independent with ADL's, cooking and cleaning. Pt's Primary is Dr. Turcios, has no AD and gets disability of $1442. Pt stated that he came to the hospital with an "infected foot." Pt is currently receiving IV-antibiotics and will d/c home with IV anti-biotics. Pt stated that he has had them before and that he connected them himself and was planning on doing the same. Pt will d/c home with IV-antibiotics once medically cleared. Pt's friend can transport him home. Addendum: 07/27/19 at 1429 by DECLAN ALBARRAN SS Amended: Links added.
--- NOTE | 2019-07-27 14:44 | NUR ---
Received a call from Stephanie [phone] and was advised that patient was accepted with [facility] and they will provide the nursing service. Currently still pending PICC placement, and then okay to dc per Nati as I advised everything was arranged.
[2019-07-27 17:00] VITALS: BP 155/79
--- NOTE | 2019-07-27 19:30 | NUR ---
PICC line placement Patient/Patient significant other educated on need for PICC line placement. All risks and benefits explained and all questions and concerns addressed prior to procedure. Noted past medical history and allergies with no contraindications. INR and Plt counts within acceptable range. 4fr PICC line inserted via RIGHT BASILIC vein using [email or web address] US and Tip Location System. Sterile technique with maximum barrier precautions utilized. Blood return obtained from SINGLE lumen and flushed easily with NS using proper technique. PICC secured with Stat-lock; biodisc and occlusive dressing applied. Stat portable chest x-ray obtained for PICC tip placement. *Baseline Arm Circumference 33CM. INTERNAL LENGTH 45CM. PICC lot #[id number].
[2019-07-27] MEDS ORDERED: LIDOCAINE 1% (LOCAL ANESTH.) PF 5ml SDV ID ONE (20:30)
[2019-07-27 22:00] VITALS: BP 153/90
[2019-07-27] MEDS: DOXYCYCLINE 100 MG TAB/CAP PO SCH (23:26)
[2019-07-27] MEDS: SODIUM CHLOR 0.9% PF (SALINE LOCK) 10ML VIAL/SYR IV SCH (23:48)
[2019-07-27] MEDS: INSULIN LANTUS (GLARGINE) 1 /0.01ml (100units/ml) SC SCH (23:48)
[2019-07-28 05:00] VITALS: BP 142/87
[2019-07-28] MEDS: ACCU-CHEK COMFORT CURVE STRIP VI SCH ×2 (06:47→12:27)
[2019-07-28] MEDS: InsuLIN REG 1unit/0.01ml Soln (100units/ml) SC SCH ×2 (06:48→12:28)
[2019-07-28 09:00] VITALS: BP 155/84
[2019-07-28] MEDS: SODIUM CHLOR 0.9% PF (SALINE LOCK) 10ML VIAL/SYR IV SCH (09:51)
[2019-07-28] MEDS: cefTRIAXone 1GM/50ML D5W 50 ML IV SCH (09:51)
[2019-07-28] MEDS: DOXYCYCLINE 100 MG TAB/CAP PO SCH (09:51)
--- NOTE | 2019-07-28 10:56 | NUR ---
Received a follow up call from Sara Brown regarding PICC line information. Checked medical record for PICC line placement. Notes and CXR completed. PICC line note and CXR results sent to Stephanie at [facility], she advised they are prepared for a start of care for tomorrow 07.29.2019. Advised Stephanie, patient should be discharging today.
[2019-07-28 13:00] VITALS: BP 163/96
--- NOTE | 2019-07-28 13:06 | NUR ---
Discharge instructions given as ordered. Encourage to follow up with PMD as instructed. All questions and concerns addressed. Patient verbalized understanding. Medication reconciliation form completed and copy given to patient. No home medications held in Pharmacy and none returned to patient, and no needed vaccines given. IV removed with catheter intact, pressure dressing applied. Picc line in place for home IV antibiotics set up with home health. Patient taken to vehicle via wheelchair with all personal belongings, accompanied by staff and family member. No distress noted at time of departure.
== END 2019-07-28 13:05 | disposition home or self-care (01) | DRG 74 ==
LOC: ER 10:09 → OVERFLOW 10:10 → CENTRAL 14:52
PROVIDERS: ADMIT Internal Medicine; ATTEND Internal Medicine
PROC: 02HV33Z Insertion of Infusion Device into Superior Vena Cava, Percutaneous Approach (ICD-10-PCS; principal; 2019-07-27)
DX: E11.40 Type 2 diabetes mellitus with diabetic neuropathy, unspecified (principal); L03.115 Cellulitis of right lower limb; M86.9 Osteomyelitis, unspecified; E44.1 Mild protein-calorie malnutrition; N18.3 Chronic kidney disease, stage 3 (moderate); E11.21 Type 2 diabetes mellitus with diabetic nephropathy; E11.22 Type 2 diabetes mellitus with diabetic chronic kidney disease; E11.319 Type 2 diabetes mellitus with unspecified diabetic retinopathy without macular edema; E66.9 Obesity, unspecified; L97.519 Non-pressure chronic ulcer of other part of right foot with unspecified severity; E11.65 Type 2 diabetes mellitus with hyperglycemia; E78.5 Hyperlipidemia, unspecified; I12.9 Hypertensive chronic kidney disease with stage 1 through stage 4 chronic kidney disease, or unspecified chronic kidney disease; Z91.030 Bee allergy status; Z79.4 Long term (current) use of insulin; Z83.3 Family history of diabetes mellitus; Z82.5 Family history of asthma and other chronic lower respiratory diseases; Z82.3 Family history of stroke; Z84.1 Family history of disorders of kidney and ureter; Z83.511 Family history of glaucoma; Z83.42 Family history of familial hypercholesterolemia
CPT/HCPCS: 36415; 36569; 71045; 80048; 80053; 81001; 82962; 83605; 85025; 85610; 85652; 85730; 87040; 87081; 93926; G0378; J0696; J1815; J3490

== ENCOUNTER → 2019-11-17 | Emergency (ER) | payer BC ==
[~2019-11-17] VITALS: Ht 185.4 cm; Wt 127.0 kg
[2019-11-17 12:54] LABS: Basophils # (auto) 0.1 10 ^3/uL (0-0.2); Eosinophils # (auto) 0.2 10 ^3/uL (0-0.8); Hematocrit 41.6 % (41.0-53.0); Hemoglobin 13.6 g/dL (13.5-17.5); Lymphocytes # (auto) 1.4 10 ^3/uL (0.4-5.4); Lymphocytes % (auto) 23.7 % (10.0-50.0); Mean Corpuscular Hemoglobin 28.9 pg (28.0-32.0); Mean Corpuscular Hgb Conc. 32.6 g/dL (32.0-36.0); Mean Corpuscular Volume 88.7 fL (80.0-100.0); Monocytes # (auto) 0.4 10 ^3/uL (0-1.3); Monocytes % (auto) 6.9 % (0.0-12.0); Neutrophils # (auto) 3.8 10 ^3/uL (1.6-8.6); Neutrophils % (auto) 65.4 % (37.0-80.0); Platelet Count (auto) 200 10^3/uL (140-450); Red Blood Cells 4.69 10^6/uL (4.5-5.90); Red Cell Distribution Width 13.6 % (11.8-14.3); White Blood Cell 5.8 10^3/uL (4.4-10.8)
[2019-11-17 13:09] LABS: Albumin 3.2 g/dL (3.4-5.0); Calcium 8.6 mg/dL (8.5-10.1); Magnesium 1.8 mg/dL (1.6-2.6); Potassium 5.1 mmol/L (3.5-5.1)
[2019-11-17 13:13] LABS: BUN/Creatinine Ratio 22.6; Bilirubin, Total 0.4 mg/dL (0.2-1.0); Total Protein 7.2 g/dL (6.4-8.2)
[2019-11-17 14:00] VITALS: BP 122/75
== END | disposition home or self-care (01) ==
LOC: ER 11:52
DX: E11.65 Type 2 diabetes mellitus with hyperglycemia (principal); I12.9 Hypertensive chronic kidney disease with stage 1 through stage 4 chronic kidney disease, or unspecified chronic kidney disease; E11.22 Type 2 diabetes mellitus with diabetic chronic kidney disease; N18.3 Chronic kidney disease, stage 3 (moderate); E78.5 Hyperlipidemia, unspecified; Z79.4 Long term (current) use of insulin; Z91.048 Other nonmedicinal substance allergy status
CPT/HCPCS: 36415; 80053; 83735; 85025; 93005

== ENCOUNTER → 2019-11-17 | Outpatient (CLI) | payer BC ==
[2019-11-17 10:48] LABS: Basophils # (auto) 0 10 ^3/uL (0-0.2); Basophils % (auto) 0.7 % (0.0-2.0); Eosinophils # (auto) 0.2 10 ^3/uL (0-0.8); Eosinophils % (auto) 3.6 % (0.0-7.0); Hematocrit 41.1 % (41.0-53.0); Hemoglobin 13.8 g/dL (13.5-17.5); Lymphocytes # (auto) 1.5 10 ^3/uL (0.4-5.4); Mean Corpuscular Hemoglobin 29.5 pg (28.0-32.0); Mean Corpuscular Hgb Conc. 33.5 g/dL (32.0-36.0); Monocytes # (auto) 0.4 10 ^3/uL (0-1.3); Monocytes % (auto) 7.4 % (0.0-12.0); Neutrophils # (auto) 3.5 10 ^3/uL (1.6-8.6); Neutrophils % (auto) 61.3 % (37.0-80.0); Nucleated Red Blood Cells % 0.1 %; Platelet Count (auto) 203 10^3/uL (140-450); Red Blood Cells 4.67 10^6/uL (4.5-5.90); Red Cell Distribution Width 13.5 % (11.8-14.3); White Blood Cell 5.7 10^3/uL (4.4-10.8)
[2019-11-17 11:15] LABS: BUN/Creatinine Ratio 24.1
[2019-11-17 11:30] LABS: Potassium 5.7 mmol/L (3.5-5.1)
== END | disposition home or self-care (01) ==
LOC: LAB 10:32
PROVIDERS: ATTEND Internal Medicine
DX: E11.9 Type 2 diabetes mellitus without complications (principal); E55.9 Vitamin D deficiency, unspecified; E78.5 Hyperlipidemia, unspecified
CPT/HCPCS: 36415; 80048; 80061; 83036; 85025

== ENCOUNTER → 2020-02-05 | Outpatient (CLI) | payer BC ==
[2020-02-05 10:51] LABS: Potassium 5.2 mmol/L (3.5-5.1)
[2020-02-05 10:59] LABS: Albumin 3.3 g/dL (3.4-5.0); BUN/Creatinine Ratio 15.3; Bilirubin, Total 0.4 mg/dL (0.2-1.0); Calcium 8.6 mg/dL (8.5-10.1); Total Protein 7.2 g/dL (6.4-8.2)
== END | disposition home or self-care (01) ==
LOC: LAB 08:50
PROVIDERS: ATTEND Internal Medicine
DX: E11.9 Type 2 diabetes mellitus without complications (principal)
CPT/HCPCS: 36415; 80053; 82043; 83036

== ENCOUNTER → 2020-03-09 | Outpatient (CLI) | payer BC ==
[2020-03-09 09:46] LABS: BUN/Creatinine Ratio 17.8; Potassium 5.2 mmol/L (3.5-5.1)
== END | disposition home or self-care (01) ==
LOC: LAB 09:02
PROVIDERS: ATTEND Internal Medicine
DX: E11.9 Type 2 diabetes mellitus without complications (principal)
CPT/HCPCS: 36415; 80048

== ENCOUNTER → 2020-03-30 | Outpatient (CLI) | payer BC ==
[2020-03-30 12:27] LABS: Potassium 4.9 mmol/L (3.5-5.1)
[2020-03-30 12:37] LABS: Albumin 3.4 g/dL (3.4-5.0); BUN/Creatinine Ratio 17.6; Bilirubin, Total 0.3 mg/dL (0.2-1.0); Calcium 9.1 mg/dL (8.5-10.1); Total Protein 7.7 g/dL (6.4-8.2)
== END | disposition home or self-care (01) ==
LOC: LAB 11:48
PROVIDERS: ATTEND Internal Medicine
DX: E11.9 Type 2 diabetes mellitus without complications (principal)
CPT/HCPCS: 36415; 80053

== ENCOUNTER → 2020-05-18 | Outpatient (CLI) | payer BC ==
[2020-05-18 11:26] LABS: Albumin 3.4 g/dL (3.4-5.0); BUN/Creatinine Ratio 15.8; Bilirubin, Total 0.4 mg/dL (0.2-1.0); Calcium 8.9 mg/dL (8.5-10.1); Potassium 5.1 mmol/L (3.5-5.1); Total Protein 7.8 g/dL (6.4-8.2)
== END | disposition home or self-care (01) ==
LOC: LAB 10:00
PROVIDERS: ATTEND Internal Medicine
DX: E11.9 Type 2 diabetes mellitus without complications (principal)
CPT/HCPCS: 36415; 80053; 83036

== ENCOUNTER → 2020-07-13 | Day surgery (SDC) | payer BC ==
[2020-07-08 11:21] LABS: Basophils # (auto) 0.1 10 ^3/uL (0-0.2); Basophils % (auto) 0.6 % (0.0-2.0); Eosinophils # (auto) 0.3 10 ^3/uL (0-0.8); Eosinophils % (auto) 3.8 % (0.0-7.0); Hematocrit 39.9 % (41.0-53.0); Hemoglobin 13.5 g/dL (13.5-17.5); Lymphocytes # (auto) 2.1 10 ^3/uL (0.4-5.4); Lymphocytes % (auto) 23.7 % (10.0-50.0); Mean Corpuscular Hemoglobin 30.7 pg (28.0-32.0); Mean Corpuscular Hgb Conc. 33.9 g/dL (32.0-36.0); Mean Corpuscular Volume 90.8 fL (80.0-100.0); Monocytes # (auto) 0.7 10 ^3/uL (0-1.3); Monocytes % (auto) 7.9 % (0.0-12.0); Neutrophils # (auto) 5.7 10 ^3/uL (1.6-8.6); Platelet Count (auto) 247 10^3/uL (140-450); Red Blood Cells 4.39 10^6/uL (4.5-5.90); Red Cell Distribution Width 13.6 % (11.8-14.3); White Blood Cell 8.9 10^3/uL (4.4-10.8)
[2020-07-08 11:26] LABS: Urine Bacteria NONE SEEN /hpf (None Seen); Urine Blood Negative /uL (Negative); Urine Specific Gravity 1.009 (1.001-1.035); Urine WBC 10 /hpf (0 - 3)
[2020-07-08 11:37] LABS: Partial Thromboplastin Time 27.1 sec (23.0-31.2)
[2020-07-08 12:21] LABS: Albumin 3.4 g/dL (3.4-5.0); Calcium 8.1 mg/dL (8.5-10.1); Potassium 4.1 mmol/L (3.5-5.1)
[2020-07-08 12:24] LABS: BUN/Creatinine Ratio 27.1; Bilirubin, Total 0.3 mg/dL (0.2-1.0); Total Protein 8.4 g/dL (6.4-8.2)
[~2020-07-13] VITALS: Ht 185.4 cm; Wt 136.1 kg
[~2020-07-13] MED LIST changes: +ACCU-CHEK COMFORT CURVE STRIP VI ONE; +ATOR20TA PO; +HYDROmorphone HCL 2 MG/ML VL IV PRN; +KETAMINE HCL 10 ML ONE; +LIDOCAINE 1% HCL (LOCAL ANESTH.) INJ 20ML MDV ONE; +METOCLOPRAMIDE HCL 5MG/ml INJ 2ml VIAL IV ONE; +METOCLOPRAMIDE HCL 5MG/ml INJ 2ml VIAL IV PRN; +MIDAZOLAM HCL 1MG/1ML-2 ML VIAL ONE; +MORPHINE SULFATE 4 MG/ML SYR/VIAL IV PRN; +NEOMYCIN-BACITRACIN-POLYM 15GM TOP OINT TOP ONE; +ONDANSETRON HCL 4 MG/2 ML VIAL ONE; +PROPOFOL 10 MG/ML 20 ML IV ONE; +ROPIVACAINE 0.5% (5MG/ML) 20ML AMPULE IJ ONE; +SODIUM CHLORIDE LOCK 10 ML ONE; +ceFAZolin 1GM VL ONE; +ceFAZolin 1GM/50ML 50 ML IV ONE; +fentaNYL CITRATE 100 MCG/2 ML VL ONE
[2020-07-13 08:42] VITALS: BP 147/79
== END | disposition home or self-care (01) ==
LOC: SUR 05:49
PROVIDERS: ATTEND Podiatrist Foot & Ankle Surgery
DX: M86.8X8 Other osteomyelitis, other site (principal); M87.88 Other osteonecrosis, other site; E11.22 Type 2 diabetes mellitus with diabetic chronic kidney disease; I12.0 Hypertensive chronic kidney disease with stage 5 chronic kidney disease or end stage renal disease; N18.5 Chronic kidney disease, stage 5; E66.9 Obesity, unspecified; Z79.899 Other long term (current) drug therapy; Z98.890 Other specified postprocedural states; Z68.39 Body mass index [BMI] 39.0-39.9, adult; Z20.822 Contact with and (suspected) exposure to COVID-19; Z91.030 Bee allergy status
CPT/HCPCS: 28820; 36415; 80053; 81001; 82962; 85025; 85610; 85730; J0690; J2001; J2250; J2405; J2704; J2765; J2795; J3010; U0003

== ENCOUNTER → 2021-01-04 | Outpatient (CLI) | payer BC ==
[~2021-01-04] MED LIST changes: -ACCU-CHEK COMFORT CURVE STRIP VI ONE; -HYDROmorphone HCL 2 MG/ML VL IV PRN; -KETAMINE HCL 10 ML ONE; -LIDOCAINE 1% HCL (LOCAL ANESTH.) INJ 20ML MDV ONE; -METOCLOPRAMIDE HCL 5MG/ml INJ 2ml VIAL IV ONE; -METOCLOPRAMIDE HCL 5MG/ml INJ 2ml VIAL IV PRN; -MIDAZOLAM HCL 1MG/1ML-2 ML VIAL ONE; -MORPHINE SULFATE 4 MG/ML SYR/VIAL IV PRN; -NEOMYCIN-BACITRACIN-POLYM 15GM TOP OINT TOP ONE; -ONDANSETRON HCL 4 MG/2 ML VIAL ONE; -PROPOFOL 10 MG/ML 20 ML IV ONE; -ROPIVACAINE 0.5% (5MG/ML) 20ML AMPULE IJ ONE; -SODIUM CHLORIDE LOCK 10 ML ONE; -ceFAZolin 1GM VL ONE; -ceFAZolin 1GM/50ML 50 ML IV ONE; -fentaNYL CITRATE 100 MCG/2 ML VL ONE
[2021-01-04 10:37] LABS: Albumin 2.8 g/dL (3.4-5.0); Potassium 5.2 mmol/L (3.5-5.1)
[2021-01-04 10:41] LABS: BUN/Creatinine Ratio 22.9; Bilirubin, Total 0.3 mg/dL (0.2-1.0); Total Protein 8.2 g/dL (6.4-8.2)
[2021-01-05 11:04] LABS: Urine Bacteria NONE SEEN /hpf (None Seen); Urine Blood Negative /uL (Negative); Urine Specific Gravity 1.008 (1.001-1.035); Urine WBC 3 /hpf (0 - 3)
== END | disposition home or self-care (01) ==
LOC: LAB 09:51
PROVIDERS: ATTEND Internal Medicine
DX: E11.9 Type 2 diabetes mellitus without complications (principal); I10 Essential (primary) hypertension
CPT/HCPCS: 36415; 80053; 80061; 81001; 82043; 82306; 83036

== ENCOUNTER → 2021-05-22 | Outpatient (CLI) | payer BC ==
[2021-05-22 09:12] LABS: Calcium 8.4 mg/dL (8.5-10.1)
== END | disposition home or self-care (01) ==
LOC: LAB 08:16
PROVIDERS: ATTEND Internal Medicine
DX: E11.9 Type 2 diabetes mellitus without complications (principal)
CPT/HCPCS: 36415; 80048

== ENCOUNTER 2021-06-21 12:30 | Inpatient (IN) | payer BC ==
[~2021-06-21] VITALS: Ht 185.4 cm; Wt 158.2 kg
[2021-06-21 15:22] LABS: Albumin 2.8 g/dL (3.4-5.0); Calcium 7.9 mg/dL (8.5-10.1); Potassium 4.7 mmol/L (3.5-5.1)
[2021-06-21 15:28] LABS: Basophils # (auto) 0 10 ^3/uL (0-0.2); Basophils % (auto) 0.5 % (0.0-2.0); Eosinophils # (auto) 0 10 ^3/uL (0-0.8); Hematocrit 33.8 % (41.0-53.0); Hemoglobin 11.1 g/dL (13.5-17.5); Lymphocytes # (auto) 0.6 10 ^3/uL (0.4-5.4); Lymphocytes % (auto) 20.7 % (10.0-50.0); Mean Corpuscular Hemoglobin 29.2 pg (28.0-32.0); Mean Corpuscular Hgb Conc. 32.8 g/dL (32.0-36.0); Mean Corpuscular Volume 88.9 fL (80.0-100.0); Monocytes # (auto) 0.4 10 ^3/uL (0-1.3); Monocytes % (auto) 12.5 % (0.0-12.0); Neutrophils # (auto) 1.9 10 ^3/uL (1.6-8.6); Neutrophils % (auto) 66.3 % (37.0-80.0); Red Cell Distribution Width 13.9 % (11.8-14.3); White Blood Cell 2.8 10^3/uL (4.4-10.8)
[2021-06-21 15:34] LABS: Bilirubin, Total 0.3 mg/dL (0.2-1.0); Total Protein 7.4 g/dL (6.4-8.2)
[2021-06-21 16:18] LABS: BUN/Creatinine Ratio 16.2
[2021-06-21] MEDS ORDERED: ASPirin 81 mg TAB PO ONE (16:30)
[2021-06-21] MEDS ORDERED: DexAMETHasone SOD PHOS 10MG/1ML VIAL INJ IV ONE (19:00)
[2021-06-21] MEDS ORDERED: SODIUM CHLORIDE 0.9% 1,000 ML IV ONE (19:00)
[2021-06-21] MEDS ORDERED: ACETAMINOPHEN 500 MG TAB PO PRN (21:30)
[2021-06-21] MEDS ORDERED: NITROGLYCERIN 0.4 MG SL TAB SL PRN (21:30)
[2021-06-21] MEDS ORDERED: TEMAZEPAM 15 MG CAP PO PRN (21:30)
[2021-06-21] MEDS ORDERED: MORPHINE SULFATE INJECTION 2 MG/ML SYRG IV PRN (21:30)
[2021-06-21] MEDS ORDERED: DEXTROSE (50%) 50ML SYRG IV PRN (21:30)
[2021-06-21] MEDS: BUDESONIDE (INHALATION) 180 MCG IH IN SCH (22:15)
[2021-06-21] MEDS: AZITHROMYCIN 500MG/ 250ML 250 ML IV SCH (22:26)
[2021-06-21] MEDS: ACCU-CHEK COMFORT CURVE STRIP VI SCH (22:26)
[2021-06-21] MEDS: InsuLIN REG 1unit/0.01ml Soln (100units/ml) SC SCH (22:35)
[2021-06-21 23:14] LABS: Magnesium 1.6 mg/dL (1.6-2.6)
[2021-06-21 23:23] LABS: CRP High Sensitivity 15.2 mg/dL (< 0.3)
[2021-06-22] MEDS: ALBUTEROL SULF HFA 90MCG INH 200DOSE IN PRN ×2 (05:50→22:35)
[2021-06-22] MEDS: BUDESONIDE (INHALATION) 180 MCG IH IN SCH ×2 (05:51→22:25)
[2021-06-22] MEDS ORDERED: FURO1TAB31 PO (06:42)
[2021-06-22] MEDS ORDERED: HYDR-4296 PO (06:42)
[2021-06-22] MEDS ORDERED: GLIP5TAB12 PO (06:44)
[2021-06-22] MEDS ORDERED: EZET10TA22 PO (06:44)
[2021-06-22] MEDS ORDERED: NIFE20CA PO (06:52)
[2021-06-22] MEDS: ACCU-CHEK COMFORT CURVE STRIP VI SCH ×4 (07:05→22:17)
[2021-06-22] MEDS: InsuLIN REG 1unit/0.01ml Soln (100units/ml) SC SCH ×3 (07:14→16:45)
[2021-06-22] MEDS: AZITHROMYCIN 500MG/ 250ML 250 ML IV SCH (10:00)
[2021-06-22] MEDS: ASCORBIC ACID 1,000 MG TAB PO SCH (10:00)
[2021-06-22] MEDS: ENOXAPARIN SOD 40 MG/0.4 ML SYRINGE SC SCH (10:00)
[2021-06-22] MEDS: PANTOPRAZOLE 40 MG/10 ML VIAL INJ IV SCH (10:00)
[2021-06-22] MEDS: DexAMETHasone SOD PHOS 10MG/1ML VIAL INJ IV SCH (10:00)
[2021-06-22] MEDS: CHOLECALCIFEROL (VITD3) 2,000 UNIT CAP/TAB PO SCH (10:00)
[2021-06-22 11:14] LABS: Basophils # (auto) 0 10 ^3/uL (0-0.2); Basophils % (auto) 0.3 % (0.0-2.0); Eosinophils # (auto) 0 10 ^3/uL (0-0.8); Hematocrit 37.9 % (41.0-53.0); Hemoglobin 12.5 g/dL (13.5-17.5); Lymphocytes # (auto) 0.6 10 ^3/uL (0.4-5.4); Lymphocytes % (auto) 13.1 % (10.0-50.0); Mean Corpuscular Hemoglobin 29.6 pg (28.0-32.0); Mean Corpuscular Volume 89.8 fL (80.0-100.0); Monocytes # (auto) 0.4 10 ^3/uL (0-1.3); Monocytes % (auto) 7.4 % (0.0-12.0); Neutrophils # (auto) 3.8 10 ^3/uL (1.6-8.6); Neutrophils % (auto) 79.2 % (37.0-80.0); Nucleated Red Blood Cells % 0.1 %; Red Blood Cells 4.23 10^6/uL (4.5-5.90); Red Cell Distribution Width 13.8 % (11.8-14.3); White Blood Cell 4.7 10^3/uL (4.4-10.8)
[2021-06-22 11:43] LABS: Potassium 5.2 mmol/L (3.5-5.1)
[2021-06-22 11:49] LABS: Albumin 2.6 g/dL (3.4-5.0); BUN/Creatinine Ratio 17.1; Bilirubin, Total 0.3 mg/dL (0.2-1.0); Calcium 7.8 mg/dL (8.5-10.1); Total Protein 7.4 g/dL (6.4-8.2)
[2021-06-22 17:00] VITALS: BP 135/69
[2021-06-22] MEDS ORDERED: DEXTROSE (50%) 50ML SYRG IV PRN (20:15)
[2021-06-22] MEDS ORDERED: amLODIPine BESYLATE 5 MG TAB PO ONE (20:15)
[2021-06-22 22:00] VITALS: BP 152/71
[2021-06-22] MEDS: INSULIN LANTUS (GLARGINE) 1 /0.01ml (100units/ml) SC SCH (22:17)
[2021-06-23] MEDS: InsuLIN REG 1unit/0.01ml Soln (100units/ml) SC SCH ×4 (00:30→17:17)
[2021-06-23 05:00] VITALS: BP 151/79
[2021-06-23] MEDS: ACCU-CHEK COMFORT CURVE STRIP VI SCH ×4 (06:22→17:16)
[2021-06-23 06:31] LABS: Urine Bacteria NONE SEEN /hpf (None Seen); Urine Blood 1+ /uL (Negative); Urine Specific Gravity 1.012 (1.001-1.035); Urine WBC 2 /hpf (0 - 3)
[2021-06-23 06:38] LABS: BUN/Creatinine Ratio 21.3; Calcium 7.7 mg/dL (8.5-10.1); Potassium 4.8 mmol/L (3.5-5.1)
[2021-06-23 06:45] LABS: Protein, Urine 257.2 mg/dL (0.0-11.9)
[2021-06-23] MEDS ORDERED: guaiFENesin-DM 100/10mg/5ml SYR PO PRN ×2 (07:00→11:30)
[2021-06-23 08:00] VITALS: BP 131/79
[2021-06-23 08:30] VITALS: BP 131/79
[2021-06-23] MEDS: AZITHROMYCIN 500MG/ 250ML 250 ML IV SCH (10:05)
[2021-06-23] MEDS: PANTOPRAZOLE 40 MG/10 ML VIAL INJ IV SCH (10:07)
[2021-06-23] MEDS: DexAMETHasone SOD PHOS 10MG/1ML VIAL INJ IV SCH (10:08)
[2021-06-23] MEDS: ENOXAPARIN SOD 40 MG/0.4 ML SYRINGE SC SCH (10:08)
[2021-06-23] MEDS: CHOLECALCIFEROL (VITD3) 2,000 UNIT CAP/TAB PO SCH (10:09)
[2021-06-23] MEDS: ASCORBIC ACID 1,000 MG TAB PO SCH (10:09)
[2021-06-23] MEDS: amLODIPine BESYLATE 5 MG TAB PO SCH (10:10)
[2021-06-23] MEDS ORDERED: guaiFENesin-DM 100/10mg/5ml SYR PO ONE (11:30)
[2021-06-23] MEDS ORDERED: REMDESIVIR PER PHARMACY 0 ML IV SCH (11:30)
[2021-06-23 13:00] VITALS: BP 134/76
[2021-06-23] MEDS: ZINC SULFATE 220mg CAP or TAB PO SCH (16:21)
[2021-06-23] MEDS: IVERMECTIN 3 MG TAB PO SCH (16:21)
[2021-06-23] MEDS: guaiFENesin-DM 100/10mg/5ml SYR PO PRN ×2 (16:21→22:26)
[2021-06-23 16:30] VITALS: BP 129/67
[2021-06-23] MEDS: BUDESONIDE (INHALATION) 180 MCG IH IN SCH (20:08)
[2021-06-23] MEDS: ALBUTEROL SULF HFA 90MCG INH 200DOSE IN PRN (20:08)
[2021-06-23] MEDS: INSULIN LANTUS (GLARGINE) 1 /0.01ml (100units/ml) SC SCH (21:47)
[2021-06-23 22:00] VITALS: BP 133/78
[2021-06-24] MEDS: ACCU-CHEK COMFORT CURVE STRIP VI SCH ×4 (00:11→17:50)
[2021-06-24] MEDS: InsuLIN REG 1unit/0.01ml Soln (100units/ml) SC SCH ×4 (00:24→17:51)
[2021-06-24 05:00] VITALS: BP 131/81
[2021-06-24] MEDS: BUDESONIDE (INHALATION) 180 MCG IH IN SCH ×2 (07:00→20:13)
[2021-06-24 08:28] LABS: Basophils # (auto) 0 10 ^3/uL (0-0.2); Basophils % (auto) 0.4 % (0.0-2.0); Eosinophils # (auto) 0 10 ^3/uL (0-0.8); Hematocrit 33.1 % (41.0-53.0); Hemoglobin 11.1 g/dL (13.5-17.5); Lymphocytes # (auto) 0.5 10 ^3/uL (0.4-5.4); Lymphocytes % (auto) 10.8 % (10.0-50.0); Mean Corpuscular Hgb Conc. 33.5 g/dL (32.0-36.0); Mean Corpuscular Volume 86.4 fL (80.0-100.0); Monocytes # (auto) 0.2 10 ^3/uL (0-1.3); Monocytes % (auto) 5.7 % (0.0-12.0); Neutrophils # (auto) 3.5 10 ^3/uL (1.6-8.6); Neutrophils % (auto) 83.1 % (37.0-80.0); Nucleated Red Blood Cells % 0.2 %; Red Blood Cells 3.83 10^6/uL (4.5-5.90); Red Cell Distribution Width 13.9 % (11.8-14.3); White Blood Cell 4.2 10^3/uL (4.4-10.8)
[2021-06-24 08:37] LABS: Albumin 2.4 g/dL (3.4-5.0); Calcium 7.8 mg/dL (8.5-10.1); Magnesium 1.6 mg/dL (1.6-2.6)
[2021-06-24 08:43] LABS: INR 1.03 (0.9-1.15)
[2021-06-24 08:47] LABS: BUN/Creatinine Ratio 19.5; Bilirubin, Total 0.3 mg/dL (0.2-1.0); CRP High Sensitivity 7.05 mg/dL (< 0.3); Total Protein 6.8 g/dL (6.4-8.2)
[2021-06-24 09:00] VITALS: BP 130/79
[2021-06-24] MEDS: ZINC SULFATE 220mg CAP or TAB PO SCH (10:18)
[2021-06-24] MEDS: ASCORBIC ACID 1,000 MG TAB PO SCH (10:18)
[2021-06-24] MEDS: CHOLECALCIFEROL (VITD3) 2,000 UNIT CAP/TAB PO SCH (10:18)
[2021-06-24] MEDS: IVERMECTIN 3 MG TAB PO SCH (10:18)
[2021-06-24] MEDS: DexAMETHasone SOD PHOS 10MG/1ML VIAL INJ IV SCH (10:19)
[2021-06-24] MEDS: PANTOPRAZOLE 40 MG/10 ML VIAL INJ IV SCH (10:19)
[2021-06-24] MEDS: amLODIPine BESYLATE 5 MG TAB PO SCH (10:19)
[2021-06-24] MEDS: ENOXAPARIN SOD 40 MG/0.4 ML SYRINGE SC SCH (10:19)
[2021-06-24] MEDS: AZITHROMYCIN 500MG/ 250ML 250 ML IV SCH (10:20)
[2021-06-24] MEDS: ALBUTEROL SULF HFA 90MCG INH 200DOSE IN PRN ×2 (12:08→20:14)
[2021-06-24] MEDS: DOXYCYCLINE 100MG/250ML 250 ML IV SCH ×2 (12:49→23:00)
[2021-06-24 12:54] VITALS: BP 126/72
[2021-06-24] MEDS ORDERED: REMDESIVIR 100mg 100 MG in SODIUM CHL 0.9% 230 ML IV ONE (15:00)
[2021-06-24 17:00] VITALS: BP 131/66
[2021-06-24 20:00] VITALS: BP 125/76
[2021-06-24 22:00] VITALS: BP 125/76
[2021-06-24] MEDS: INSULIN LANTUS (GLARGINE) 1 /0.01ml (100units/ml) SC SCH (23:00)
[2021-06-25] VITALS (7 sets, daily range): BP systolic 122–151; BP diastolic 60–86
[2021-06-25] MEDS: InsuLIN REG 1unit/0.01ml Soln (100units/ml) SC SCH ×5 (00:48→23:11)
[2021-06-25] MEDS: ALBUTEROL SULF HFA 90MCG INH 200DOSE IN PRN ×2 (06:13→19:20)
[2021-06-25] MEDS: BUDESONIDE (INHALATION) 180 MCG IH IN SCH ×2 (06:13→19:20)
[2021-06-25] MEDS: ACCU-CHEK COMFORT CURVE STRIP VI SCH ×5 (06:19→23:12)
[2021-06-25 07:58] LABS: Basophils # (auto) 0 10 ^3/uL (0-0.2); Basophils % (auto) 0.7 % (0.0-2.0); Eosinophils # (auto) 0 10 ^3/uL (0-0.8); Hematocrit 34.7 % (41.0-53.0); Hemoglobin 11.7 g/dL (13.5-17.5); Lymphocytes # (auto) 0.3 10 ^3/uL (0.4-5.4); Lymphocytes % (auto) 6.5 % (10.0-50.0); Mean Corpuscular Hemoglobin 29.3 pg (28.0-32.0); Mean Corpuscular Hgb Conc. 33.8 g/dL (32.0-36.0); Mean Corpuscular Volume 86.8 fL (80.0-100.0); Monocytes # (auto) 0.3 10 ^3/uL (0-1.3); Monocytes % (auto) 5.7 % (0.0-12.0); Neutrophils % (auto) 87.1 % (37.0-80.0); Nucleated Red Blood Cells % 0.3 %; Red Cell Distribution Width 13.9 % (11.8-14.3); White Blood Cell 4.6 10^3/uL (4.4-10.8)
[2021-06-25 08:10] LABS: Albumin 2.2 g/dL (3.4-5.0); Calcium 7.4 mg/dL (8.5-10.1); Potassium 4.9 mmol/L (3.5-5.1)
[2021-06-25 08:14] LABS: BUN/Creatinine Ratio 21.9; Bilirubin, Total 0.4 mg/dL (0.2-1.0); Total Protein 6.2 g/dL (6.4-8.2)
[2021-06-25] MEDS: IVERMECTIN 3 MG TAB PO SCH (10:25)
[2021-06-25] MEDS: ZINC SULFATE 220mg CAP or TAB PO SCH (10:25)
[2021-06-25] MEDS: CHOLECALCIFEROL (VITD3) 2,000 UNIT CAP/TAB PO SCH (10:25)
[2021-06-25] MEDS: AZITHROMYCIN 500MG/ 250ML 250 ML IV SCH (10:26)
[2021-06-25] MEDS: DexAMETHasone SOD PHOS 10MG/1ML VIAL INJ IV SCH (10:26)
[2021-06-25] MEDS: ENOXAPARIN SOD 40 MG/0.4 ML SYRINGE SC SCH (10:26)
[2021-06-25] MEDS: amLODIPine BESYLATE 5 MG TAB PO SCH (10:26)
[2021-06-25] MEDS: PANTOPRAZOLE 40 MG/10 ML VIAL INJ IV SCH (10:26)
[2021-06-25] MEDS: DOXYCYCLINE 100MG/250ML 250 ML IV SCH ×2 (11:00→23:12)
[2021-06-25] MEDS: REMDESIVIR 100mg 50 MG in SODIUM CHL 0.9% 240 ML IV SCH (15:53)
[2021-06-25] MEDS: INSULIN LANTUS (GLARGINE) 1 /0.01ml (100units/ml) SC SCH (23:11)
[2021-06-26] VITALS (8 sets, daily range): BP systolic 113–166; BP diastolic 68–93
[2021-06-26] MEDS: ACCU-CHEK COMFORT CURVE STRIP VI SCH ×4 (05:45→23:34)
[2021-06-26] MEDS: InsuLIN REG 1unit/0.01ml Soln (100units/ml) SC SCH ×4 (05:48→23:33)
[2021-06-26] MEDS: BUDESONIDE (INHALATION) 180 MCG IH IN SCH ×2 (10:04→22:00)
[2021-06-26] MEDS: ALBUTEROL SULF HFA 90MCG INH 200DOSE IN PRN ×2 (10:04→23:21)
[2021-06-26 10:27] LABS: Albumin 2.2 g/dL (3.4-5.0); Calcium 8.1 mg/dL (8.5-10.1); Potassium 4.8 mmol/L (3.5-5.1)
[2021-06-26 10:31] LABS: BUN/Creatinine Ratio 26.5; Bilirubin, Total 0.4 mg/dL (0.2-1.0); Total Protein 6.3 g/dL (6.4-8.2)
[2021-06-26] MEDS: ZINC SULFATE 220mg CAP or TAB PO SCH (10:58)
[2021-06-26] MEDS: PANTOPRAZOLE 40 MG/10 ML VIAL INJ IV SCH (10:58)
[2021-06-26] MEDS: DexAMETHasone SOD PHOS 10MG/1ML VIAL INJ IV SCH (10:58)
[2021-06-26] MEDS: IVERMECTIN 3 MG TAB PO SCH (10:59)
[2021-06-26] MEDS: amLODIPine BESYLATE 5 MG TAB PO SCH (10:59)
[2021-06-26] MEDS: CHOLECALCIFEROL (VITD3) 2,000 UNIT CAP/TAB PO SCH (11:00)
[2021-06-26] MEDS: DOXYCYCLINE 100MG/250ML 250 ML IV SCH ×2 (11:00→23:34)
[2021-06-26] MEDS: ENOXAPARIN SOD 40 MG/0.4 ML SYRINGE SC SCH (11:00)
[2021-06-26] MEDS: REMDESIVIR 100mg 50 MG in SODIUM CHL 0.9% 240 ML IV SCH (15:00)
[2021-06-26] MEDS ORDERED: LIDOCAINE 1% (LOCAL ANESTH.) PF 5ml SDV ID ONE (18:30)
[2021-06-26] MEDS: SODIUM CHLOR 0.9% PF (SALINE LOCK) 10ML VIAL/SYR IV SCH (22:00)
[2021-06-26] MEDS: INSULIN LANTUS (GLARGINE) 1 /0.01ml (100units/ml) SC SCH (23:32)
[2021-06-27] VITALS (9 sets, daily range): BP systolic 134–166; BP diastolic 76–96
[2021-06-27] MEDS: ACCU-CHEK COMFORT CURVE STRIP VI SCH ×3 (06:14→18:21)
[2021-06-27] MEDS: InsuLIN REG 1unit/0.01ml Soln (100units/ml) SC SCH ×3 (06:15→18:24)
[2021-06-27 07:09] LABS: Basophils # (auto) 0 10 ^3/uL (0-0.2); Basophils % (auto) 0.1 % (0.0-2.0); Eosinophils # (auto) 0 10 ^3/uL (0-0.8); Hematocrit 39.7 % (41.0-53.0); Lymphocytes # (auto) 0.3 10 ^3/uL (0.4-5.4); Lymphocytes % (auto) 3.6 % (10.0-50.0); Mean Corpuscular Hemoglobin 28.4 pg (28.0-32.0); Mean Corpuscular Hgb Conc. 32.7 g/dL (32.0-36.0); Mean Corpuscular Volume 86.9 fL (80.0-100.0); Monocytes # (auto) 0.3 10 ^3/uL (0-1.3); Neutrophils # (auto) 7.7 10 ^3/uL (1.6-8.6); Neutrophils % (auto) 92.3 % (37.0-80.0); Nucleated Red Blood Cells % 0.1 %; Red Blood Cells 4.56 10^6/uL (4.5-5.90); Red Cell Distribution Width 14.2 % (11.8-14.3); White Blood Cell 8.4 10^3/uL (4.4-10.8)
[2021-06-27 07:11] LABS: Potassium 4.8 mmol/L (3.5-5.1)
[2021-06-27 07:26] LABS: Albumin 2.2 g/dL (3.4-5.0); BUN/Creatinine Ratio 31.4; Bilirubin, Total 0.5 mg/dL (0.2-1.0); CRP High Sensitivity 5.91 mg/dL (< 0.3); Calcium 8.5 mg/dL (8.5-10.1); Magnesium 3.1 mg/dL (1.6-2.6); Total Protein 6.4 g/dL (6.4-8.2)
[2021-06-27 07:35] LABS: INR 1.13 (0.9-1.15)
[2021-06-27] MEDS: BUDESONIDE (INHALATION) 180 MCG IH IN SCH ×2 (08:36→19:30)
[2021-06-27] MEDS: ALBUTEROL SULF HFA 90MCG INH 200DOSE IN PRN ×2 (08:36→20:32)
[2021-06-27] MEDS: PANTOPRAZOLE 40 MG/10 ML VIAL INJ IV SCH (09:54)
[2021-06-27] MEDS: ENOXAPARIN SOD 40 MG/0.4 ML SYRINGE SC SCH (09:54)
[2021-06-27] MEDS: amLODIPine BESYLATE 5 MG TAB PO SCH ×2 (09:54→10:00)
[2021-06-27] MEDS: DexAMETHasone SOD PHOS 10MG/1ML VIAL INJ IV SCH (09:54)
[2021-06-27] MEDS: ZINC SULFATE 220mg CAP or TAB PO SCH ×2 (09:55→10:00)
[2021-06-27] MEDS: CHOLECALCIFEROL (VITD3) 2,000 UNIT CAP/TAB PO SCH ×2 (09:55→10:00)
[2021-06-27] MEDS: IVERMECTIN 3 MG TAB PO SCH ×2 (09:55→10:00)
[2021-06-27] MEDS: SODIUM CHLOR 0.9% PF (SALINE LOCK) 10ML VIAL/SYR IV SCH ×2 (09:56→22:31)
[2021-06-27] MEDS: DOXYCYCLINE 100MG/250ML 250 ML IV SCH (11:38)
[2021-06-27] MEDS ORDERED: TPN PER PHARMACY 0 ML IV SCH (12:45)
[2021-06-27 14:27] LABS: Phosphorus 4.1 mg/dL (2.5-4.90); Pre Albumin 12.6 mg/dL (20.0-40.0)
[2021-06-27] MEDS: REMDESIVIR 100mg 50 MG in SODIUM CHL 0.9% 240 ML IV SCH (15:22)
[2021-06-27] MEDS ORDERED: DEXTROSE (50%) 50ML SYRG IV SCH (18:00)
[2021-06-27] MEDS ORDERED: AMINO ACID INFUSION IN D10W 1,000 ML IV NR (20:00)
[2021-06-28] MEDS: DOXYCYCLINE 100MG/250ML 250 ML IV SCH ×3 (00:06→23:56)
[2021-06-28] MEDS: ACCU-CHEK COMFORT CURVE STRIP VI SCH ×5 (00:07→23:10)
[2021-06-28] MEDS: InsuLIN REG 1unit/0.01ml Soln (100units/ml) SC SCH ×5 (00:08→23:10)
[2021-06-28] MEDS: INSULIN LANTUS (GLARGINE) 1 /0.01ml (100units/ml) SC SCH ×2 (00:08→22:00)
[2021-06-28 05:00] VITALS: BP 160/87
[2021-06-28] MEDS: ONDANSETRON HCL 4 MG/2 ML VIAL IV PRN ×3 (07:01→18:26)
[2021-06-28 08:41] VITALS: BP 157/76
[2021-06-28] MEDS: CHOLECALCIFEROL (VITD3) 2,000 UNIT CAP/TAB PO SCH (10:00)
[2021-06-28] MEDS: ZINC SULFATE 220mg CAP or TAB PO SCH (10:00)
[2021-06-28] MEDS: amLODIPine BESYLATE 5 MG TAB PO SCH (10:00)
[2021-06-28] MEDS: BUDESONIDE (INHALATION) 180 MCG IH IN SCH ×2 (10:00→19:10)
[2021-06-28] MEDS: SODIUM CHLOR 0.9% PF (SALINE LOCK) 10ML VIAL/SYR IV SCH ×2 (10:22→21:23)
[2021-06-28] MEDS: ENOXAPARIN SOD 40 MG/0.4 ML SYRINGE SC SCH (11:01)
[2021-06-28] MEDS: PANTOPRAZOLE 40 MG/10 ML VIAL INJ IV SCH (11:01)
[2021-06-28 11:11] LABS: Potassium 5.3 mmol/L (3.5-5.1)
[2021-06-28 11:33] LABS: BUN/Creatinine Ratio 36.1; Calcium 8.5 mg/dL (8.5-10.1); Magnesium 2.1 mg/dL (1.6-2.6)
[2021-06-28 11:35] LABS: Bilirubin, Total 0.7 mg/dL (0.2-1.0); Phosphorus 3.4 mg/dL (2.5-4.90); Total Protein 6.9 g/dL (6.4-8.2)
[2021-06-28 13:00] VITALS: BP 161/84
[2021-06-28] MEDS ORDERED: SODIUM ZIRCONIUM CYCL 10 GM PAK PO ONE (13:00)
[2021-06-28] MEDS ORDERED: LORazepam 2MG/ML-1ML VIAL IV PRN (15:15)
[2021-06-28] MEDS: REMDESIVIR 100mg 50 MG in SODIUM CHL 0.9% 240 ML IV SCH (16:37)
[2021-06-28 17:00] VITALS: BP 119/74
[2021-06-28 18:05] VITALS: BP 119/74
[2021-06-28] MEDS: TPN PER PHARMACY IV NR ×7 (20:09)
[2021-06-28] MEDS: SODIUM ZIRCONIUM CYCL 10 GM PAK PO SCH (21:23)
[2021-06-28 22:00] VITALS: BP 139/78
[2021-06-29 01:32] VITALS: BP 139/78
[2021-06-29] MEDS: ONDANSETRON HCL 4 MG/2 ML VIAL IV PRN ×2 (04:47→12:33)
[2021-06-29] MEDS: SODIUM ZIRCONIUM CYCL 10 GM PAK PO SCH ×3 (05:53→21:30)
[2021-06-29] MEDS: ACCU-CHEK COMFORT CURVE STRIP VI SCH ×4 (05:53→23:20)
[2021-06-29] MEDS: InsuLIN REG 1unit/0.01ml Soln (100units/ml) SC SCH ×4 (05:53→23:00)
[2021-06-29 07:02] LABS: CRP High Sensitivity 6.25 mg/dL (< 0.3)
[2021-06-29] MEDS: BUDESONIDE (INHALATION) 180 MCG IH IN SCH ×2 (07:39→21:16)
[2021-06-29 09:00] VITALS: BP 130/87
[2021-06-29] MEDS: PANTOPRAZOLE 40 MG/10 ML VIAL INJ IV SCH (09:42)
[2021-06-29] MEDS: CHOLECALCIFEROL (VITD3) 2,000 UNIT CAP/TAB PO SCH (09:42)
[2021-06-29] MEDS: ZINC SULFATE 220mg CAP or TAB PO SCH (09:42)
[2021-06-29] MEDS: SODIUM CHLOR 0.9% PF (SALINE LOCK) 10ML VIAL/SYR IV SCH ×2 (09:42→21:31)
[2021-06-29] MEDS: amLODIPine BESYLATE 5 MG TAB PO SCH (09:42)
[2021-06-29] MEDS: DOXYCYCLINE 100MG/250ML 250 ML IV SCH (09:45)
[2021-06-29] MEDS ORDERED: ENOXAPARIN SOD 150 MG/1 ML SYRINGE SC SCH (10:00)
[2021-06-29 11:28] LABS: Basophils # (auto) 0 10 ^3/uL (0-0.2); Mean Corpuscular Hemoglobin 28.9 pg (28.0-32.0); Monocytes # (auto) 0.2 10 ^3/uL (0-1.3); Neutrophils % (auto) 93.2 % (37.0-80.0)
[2021-06-29 11:30] LABS: Basophils % (auto) 0.2 % (0.0-2.0); Eosinophils # (auto) 0 10 ^3/uL (0-0.8); Eosinophils % (auto) 0.5 % (0.0-7.0); Hematocrit 31.5 % (41.0-53.0); Hemoglobin 9.6 g/dL (13.5-17.5); Lymphocytes # (auto) 0.4 10 ^3/uL (0.4-5.4); Mean Corpuscular Hgb Conc. 30.5 g/dL (32.0-36.0); Mean Corpuscular Volume 94.8 fL (80.0-100.0); Monocytes % (auto) 2.1 % (0.0-12.0); Neutrophils # (auto) 8.2 10 ^3/uL (1.6-8.6); Nucleated Red Blood Cells % 0.1 %; Red Blood Cells 3.32 10^6/uL (4.5-5.90); Red Cell Distribution Width 15.3 % (11.8-14.3); White Blood Cell 8.8 10^3/uL (4.4-10.8)
[2021-06-29] MEDS ORDERED: DexAMETHasone SOD PHOS 10MG/1ML VIAL INJ IV ONE (11:45)
[2021-06-29] MEDS ORDERED: FUROSEMIDE 40 MG/4 ML VIAL IV ONE (11:45)
[2021-06-29 11:56] VITALS: BP 156/74
[2021-06-29] MEDS: MEROPENEM 1GM IVPB 100 ML IV SCH ×2 (14:24→23:20)
[2021-06-29 14:52] VITALS: BP 156/74
[2021-06-29 15:05] LABS: Hematocrit 37.1 % (41.0-53.0); Mean Corpuscular Hemoglobin 28.3 pg (28.0-32.0); Mean Corpuscular Hgb Conc. 32.4 g/dL (32.0-36.0); Mean Corpuscular Volume 87.4 fL (80.0-100.0); Red Blood Cells 4.24 10^6/uL (4.5-5.90); Red Cell Distribution Width 14.6 % (11.8-14.3); White Blood Cell 12.5 10^3/uL (4.4-10.8)
[2021-06-29 15:07] LABS: Band Neutrophils % (manual) 0; Basophils % (manual) 0 (0.0-2.0); Blast Cells 0; Eosinophils % (manual) 0 (0-7); Metamyelocytes % 0; Myelocytes % 0; Promyelocytes % 0; Reactive Lymphocytes 0
[2021-06-29 16:28] LABS: Lymphocytes % (manual) 6 (10.0-50.0); Monocytes % (manual) 1 (0-12)
[2021-06-29 16:36] LABS: BUN/Creatinine Ratio 31.9; Bilirubin, Total 1.1 mg/dL (0.2-1.0); Phosphorus 3.2 mg/dL (2.5-4.90); Potassium 5.1 mmol/L (3.5-5.1)
[2021-06-29 16:37] LABS: Albumin 2.1 g/dL (3.4-5.0); Magnesium 2.6 mg/dL (1.6-2.6); Total Protein 6.5 g/dL (6.4-8.2)
[2021-06-29 17:00] VITALS: BP 132/78
[2021-06-29] MEDS: TPN PER PHARMACY IV NR ×13 (19:55→21:21)
[2021-06-29] MEDS: ALBUTEROL SULF HFA 90MCG INH 200DOSE IN PRN (21:16)
[2021-06-29] MEDS: INSULIN LANTUS (GLARGINE) 1 /0.01ml (100units/ml) SC SCH (21:19)
[2021-06-29 21:34] VITALS: BP 156/74
[2021-06-29] MEDS ORDERED: TOCILIZUMAB 400 MG in SODIUM CHL 0.9% 80 ML IV SCH (22:00)
[2021-06-29] MEDS ORDERED: MEROPENEM 1GM IVPB 100 ML IV SCH (22:00)
[2021-06-30 05:03] VITALS: BP 169/88
[2021-06-30] MEDS: SODIUM ZIRCONIUM CYCL 10 GM PAK PO SCH (06:00)
[2021-06-30] MEDS: ACCU-CHEK COMFORT CURVE STRIP VI SCH ×4 (06:00→22:57)
[2021-06-30] MEDS: InsuLIN REG 1unit/0.01ml Soln (100units/ml) SC SCH ×4 (06:00→22:57)
[2021-06-30] MEDS: BUDESONIDE (INHALATION) 180 MCG IH IN SCH ×4 (06:12→23:00)
[2021-06-30] MEDS: ALBUTEROL SULF HFA 90MCG INH 200DOSE IN PRN (06:12)
[2021-06-30 08:32] VITALS: BP 157/75
[2021-06-30] MEDS: ZINC SULFATE 220mg CAP or TAB PO SCH (10:00)
[2021-06-30] MEDS: CHOLECALCIFEROL (VITD3) 2,000 UNIT CAP/TAB PO SCH (10:00)
[2021-06-30] MEDS: amLODIPine BESYLATE 5 MG TAB PO SCH (10:00)
[2021-06-30 11:09] LABS: INR 1.31 (0.9-1.15)
[2021-06-30 11:10] LABS: Basophils # (auto) 0 10 ^3/uL (0-0.2); Basophils % (auto) 0.2 % (0.0-2.0); Eosinophils # (auto) 0.1 10 ^3/uL (0-0.8); Eosinophils % (auto) 0.5 % (0.0-7.0); Hematocrit 35.7 % (41.0-53.0); Hemoglobin 11.7 g/dL (13.5-17.5); Lymphocytes # (auto) 0.6 10 ^3/uL (0.4-5.4); Lymphocytes % (auto) 4.3 % (10.0-50.0); Mean Corpuscular Hemoglobin 28.5 pg (28.0-32.0); Mean Corpuscular Hgb Conc. 32.7 g/dL (32.0-36.0); Mean Corpuscular Volume 87.1 fL (80.0-100.0); Monocytes # (auto) 0.4 10 ^3/uL (0-1.3); Monocytes % (auto) 2.9 % (0.0-12.0); Neutrophils # (auto) 12.1 10 ^3/uL (1.6-8.6); Neutrophils % (auto) 92.1 % (37.0-80.0); Nucleated Red Blood Cells % 0.1 %; Red Cell Distribution Width 14.4 % (11.8-14.3); White Blood Cell 13.1 10^3/uL (4.4-10.8)
[2021-06-30] MEDS: DexAMETHasone SOD PHOS 10MG/1ML VIAL INJ IV SCH (11:13)
[2021-06-30] MEDS: SODIUM CHLOR 0.9% PF (SALINE LOCK) 10ML VIAL/SYR IV SCH ×2 (11:13→20:05)
[2021-06-30] MEDS: PANTOPRAZOLE 40 MG/10 ML VIAL INJ IV SCH (11:13)
[2021-06-30] MEDS: FUROSEMIDE 40 MG/4 ML VIAL IV SCH (11:13)
[2021-06-30 11:35] LABS: Potassium 5.1 mmol/L (3.5-5.1)
[2021-06-30 11:49] LABS: Albumin 1.9 g/dL (3.4-5.0); BUN/Creatinine Ratio 31.7; Bilirubin, Total 0.7 mg/dL (0.2-1.0); Calcium 8.2 mg/dL (8.5-10.1); Magnesium 2.8 mg/dL (1.6-2.6); Phosphorus 2.6 mg/dL (2.5-4.90); Total Protein 6.6 g/dL (6.4-8.2)
[2021-06-30] MEDS: MEROPENEM 1GM IVPB 100 ML IV SCH (12:39)
[2021-06-30] MEDS: ENOXAPARIN SOD 150 MG/1 ML SYRINGE SC SCH (12:39)
[2021-06-30 16:35] VITALS: BP 156/85
[2021-06-30 18:30] VITALS: BP 156/85
[2021-06-30] MEDS: TPN PER PHARMACY IV NR ×6 (19:57)
[2021-06-30] MEDS ORDERED: TPN PER PHARMACY IV NR ×6 (20:00)
[2021-06-30 22:00] VITALS: BP 148/78
[2021-06-30] MEDS: INSULIN LANTUS (GLARGINE) 1 /0.01ml (100units/ml) SC SCH (22:56)
[2021-07-01] VITALS (10 sets, daily range): BP systolic 104–176; BP diastolic 67–88
[2021-07-01] MEDS: MEROPENEM 1GM IVPB 100 ML IV SCH ×3 (00:58→23:51)
[2021-07-01] MEDS: ACCU-CHEK COMFORT CURVE STRIP VI SCH ×4 (06:06→23:27)
[2021-07-01] MEDS: InsuLIN REG 1unit/0.01ml Soln (100units/ml) SC SCH ×4 (06:07→23:26)
[2021-07-01] MEDS: hydrALAZINE HCL 20 MG/ML VL IV PRN ×3 (06:08→23:53)
[2021-07-01 07:02] LABS: Potassium 4.7 mmol/L (3.5-5.1)
[2021-07-01 07:13] LABS: INR 1.35 (0.9-1.15)
[2021-07-01 07:17] LABS: Albumin 1.9 g/dL (3.4-5.0); BUN/Creatinine Ratio 36.9; Bilirubin, Total 0.6 mg/dL (0.2-1.0); CRP High Sensitivity 8.86 mg/dL (< 0.3); Calcium 7.9 mg/dL (8.5-10.1); Magnesium 1.8 mg/dL (1.6-2.6); Phosphorus 3.9 mg/dL (2.5-4.90)
[2021-07-01] MEDS: amLODIPine BESYLATE 5 MG TAB PO SCH (08:56)
[2021-07-01] MEDS: ZINC SULFATE 220mg CAP or TAB PO SCH (08:56)
[2021-07-01] MEDS: CHOLECALCIFEROL (VITD3) 2,000 UNIT CAP/TAB PO SCH (08:56)
[2021-07-01] MEDS: PANTOPRAZOLE 40 MG/10 ML VIAL INJ IV SCH (08:56)
[2021-07-01] MEDS: DexAMETHasone SOD PHOS 10MG/1ML VIAL INJ IV SCH (08:56)
[2021-07-01] MEDS: FUROSEMIDE 40 MG/4 ML VIAL IV SCH (08:56)
[2021-07-01] MEDS: SODIUM CHLOR 0.9% PF (SALINE LOCK) 10ML VIAL/SYR IV SCH ×2 (08:56→22:00)
[2021-07-01] MEDS: ENOXAPARIN SOD 150 MG/1 ML SYRINGE SC SCH (08:57)
[2021-07-01 09:08] LABS: Basophils # (auto) 0.1 10 ^3/uL (0-0.2); Basophils % (auto) 0.6 % (0.0-2.0); Eosinophils # (auto) 0 10 ^3/uL (0-0.8); Eosinophils % (auto) 0.1 % (0.0-7.0); Hematocrit 34.2 % (41.0-53.0); Hemoglobin 11.1 g/dL (13.5-17.5); Lymphocytes # (auto) 0.6 10 ^3/uL (0.4-5.4); Lymphocytes % (auto) 4.6 % (10.0-50.0); Mean Corpuscular Hemoglobin 28.9 pg (28.0-32.0); Mean Corpuscular Hgb Conc. 32.4 g/dL (32.0-36.0); Monocytes # (auto) 0.2 10 ^3/uL (0-1.3); Monocytes % (auto) 1.6 % (0.0-12.0); Neutrophils # (auto) 11.9 10 ^3/uL (1.6-8.6); Neutrophils % (auto) 93.1 % (37.0-80.0); Nucleated Red Blood Cells % 0.1 %; Red Blood Cells 3.85 10^6/uL (4.5-5.90); Red Cell Distribution Width 14.7 % (11.8-14.3); White Blood Cell 12.8 10^3/uL (4.4-10.8)
[2021-07-01] MEDS: ALBUTEROL SULF HFA 90MCG INH 200DOSE IN PRN (10:50)
[2021-07-01] MEDS: BUDESONIDE (INHALATION) 180 MCG IH IN SCH (10:50)
[2021-07-01] MEDS ORDERED: MAGNESIUM SULFATE 1GM/100ML 100 ML IV ONE (13:30)
[2021-07-01] MEDS: TPN PER PHARMACY IV NR ×8 (19:54)
[2021-07-01] MEDS: INSULIN LANTUS (GLARGINE) 1 /0.01ml (100units/ml) SC SCH (23:26)
[2021-07-02] VITALS (17 sets, daily range): BP systolic 78–186; BP diastolic 43–85
[2021-07-02] MEDS: ALBUTEROL SULF HFA 90MCG INH 200DOSE IN PRN (00:47)
[2021-07-02] MEDS: ACCU-CHEK COMFORT CURVE STRIP VI SCH ×3 (06:09→18:00)
[2021-07-02] MEDS: hydrALAZINE HCL 20 MG/ML VL IV PRN (06:10)
[2021-07-02] MEDS: InsuLIN REG 1unit/0.01ml Soln (100units/ml) SC SCH ×3 (06:24→18:00)
[2021-07-02 07:18] LABS: Albumin 1.9 g/dL (3.4-5.0); Calcium 8.3 mg/dL (8.5-10.1); Magnesium 2.8 mg/dL (1.6-2.6); Potassium 4.7 mmol/L (3.5-5.1)
[2021-07-02 07:21] LABS: BUN/Creatinine Ratio 37.7; Bilirubin, Total 0.6 mg/dL (0.2-1.0); Phosphorus 3.1 mg/dL (2.5-4.90); Total Protein 6.8 g/dL (6.4-8.2)
[2021-07-02] MEDS: amLODIPine BESYLATE 5 MG TAB PO SCH (10:00)
[2021-07-02] MEDS: ZINC SULFATE 220mg CAP or TAB PO SCH (10:00)
[2021-07-02] MEDS: CHOLECALCIFEROL (VITD3) 2,000 UNIT CAP/TAB PO SCH (10:00)
[2021-07-02] MEDS: BUDESONIDE (INHALATION) 180 MCG IH IN SCH (10:00)
[2021-07-02] MEDS: PANTOPRAZOLE 40 MG/10 ML VIAL INJ IV SCH (10:03)
[2021-07-02] MEDS: FUROSEMIDE 40 MG/4 ML VIAL IV SCH (10:03)
[2021-07-02] MEDS: ENOXAPARIN SOD 150 MG/1 ML SYRINGE SC SCH (10:03)
[2021-07-02] MEDS: SODIUM CHLOR 0.9% PF (SALINE LOCK) 10ML VIAL/SYR IV SCH ×2 (10:04→21:10)
[2021-07-02] MEDS: DexAMETHasone SOD PHOS 10MG/1ML VIAL INJ IV SCH (10:05)
[2021-07-02] MEDS ORDERED: ETOMIDATE (2MG/ML) 20ML VIAL IV ONE (11:29)
[2021-07-02] MEDS ORDERED: ROCURONIUM 10MG/ML 10ML VIAL IV ONE (11:29)
[2021-07-02] MEDS ORDERED: SUCCINYLCHOLINE CHLORIDE 20 MG/ML 10ML VIAL IV ONE (11:29)
[2021-07-02] MEDS ORDERED: MIDAZOLAM DRIP 50 mg/50mL 50 ML IV ONE (11:38)
[2021-07-02] MEDS ORDERED: PROPOFOL 100 ML IV ONE ×2 (11:38→13:11)
[2021-07-02] MEDS ORDERED: fentaNYL Drip 2500mCg/250mlNS 250 ML IV ONE (13:11)
[2021-07-02] MEDS ORDERED: MIDAZOLAM HCL 5 MG/ML-1ML VIAL ONE (13:13)
[2021-07-02] MEDS ORDERED: NOREPINEPHRINE 8 MG/250ML KIT 250 ML IV ONE (13:28)
[2021-07-02] MEDS: fentaNYL Drip 2500mCg/250mlNS 250 ML IV SCH (13:30)
[2021-07-02] MEDS: MIDAZOLAM DRIP 50 mg/50mL 50 ML IV SCH (13:30)
[2021-07-02] MEDS: PROPOFOL 100 ML IV SCH ×2 (13:30→21:13)
[2021-07-02] MEDS: MEROPENEM 1GM IVPB 100 ML IV SCH (17:00)
[2021-07-02] MEDS ORDERED: PROPOFOL 100 ML IV SCH (17:30)
[2021-07-02] MEDS ORDERED: fentaNYL Drip 2500mCg/250mlNS 250 ML IV SCH (17:30)
[2021-07-02] MEDS ORDERED: MIDAZOLAM DRIP 50 mg/50mL 50 ML IV SCH (17:30)
[2021-07-02] MEDS ORDERED: ROCURONIUM 10MG/ML 10ML VIAL IV PRN (17:30)
[2021-07-02] MEDS: ALBUTEROL SULF 2.5 MG/0.5ML(0.5%) NEB SOLN NEB PRN (18:42)
[2021-07-02] MEDS: BUDESONIDE (INHALATION) 0.5 MG/2 ML NEB NEB SCH (18:42)
[2021-07-02] MEDS ORDERED: TPN PER PHARMACY IV NR ×6 (20:00)
[2021-07-02] MEDS: TPN PER PHARMACY IV NR ×8 (20:13)
[2021-07-02] MEDS: INSULIN LANTUS (GLARGINE) 1 /0.01ml (100units/ml) SC SCH (21:10)
[2021-07-03] VITALS (43 sets, daily range): BP systolic 69–128; BP diastolic 25–65
[2021-07-03] MEDS: ACCU-CHEK COMFORT CURVE STRIP VI SCH ×3 (00:43→12:00)
[2021-07-03] MEDS: InsuLIN REG 1unit/0.01ml Soln (100units/ml) SC SCH ×3 (00:44→12:45)
[2021-07-03] MEDS: MIDAZOLAM DRIP 50 mg/50mL 50 ML IV SCH ×2 (01:36→14:56)
[2021-07-03] MEDS: fentaNYL Drip 2500mCg/250mlNS 250 ML IV SCH ×2 (01:37→12:43)
[2021-07-03] MEDS: PROPOFOL 100 ML IV SCH ×3 (02:39→13:13)
[2021-07-03] MEDS: MEROPENEM 1GM IVPB 100 ML IV SCH (04:32)
[2021-07-03 04:33] LABS: Basophils # (auto) 0 10 ^3/uL (0-0.2); Eosinophils # (auto) 0 10 ^3/uL (0-0.8); Hematocrit 29.7 % (41.0-53.0); Hemoglobin 10.6 g/dL (13.5-17.5); Lymphocytes # (auto) 0.5 10 ^3/uL (0.4-5.4); Mean Corpuscular Hemoglobin 31.5 pg (28.0-32.0); Mean Corpuscular Hgb Conc. 35.8 g/dL (32.0-36.0); Monocytes # (auto) 0.1 10 ^3/uL (0-1.3); Monocytes % (auto) 1.6 % (0.0-12.0); Neutrophils # (auto) 7.7 10 ^3/uL (1.6-8.6); Neutrophils % (auto) 92.4 % (37.0-80.0); Nucleated Red Blood Cells % 0.1 %; Red Blood Cells 3.37 10^6/uL (4.5-5.90); Red Cell Distribution Width 14.6 % (11.8-14.3); White Blood Cell 8.4 10^3/uL (4.4-10.8)
[2021-07-03 04:45] LABS: INR 1.09 (0.9-1.15)
[2021-07-03] MEDS ORDERED: SODIUM CHLORIDE 0.9% 1,000 ML IV SCH ×2 (05:15→06:00)
[2021-07-03] MEDS ORDERED: SODIUM CHLORIDE 0.9% 500 ML IV ONE (05:15)
[2021-07-03] MEDS: BUDESONIDE (INHALATION) 0.5 MG/2 ML NEB NEB SCH ×2 (05:55→19:49)
[2021-07-03] MEDS: ALBUTEROL SULF 2.5 MG/0.5ML(0.5%) NEB SOLN NEB PRN (05:56)
[2021-07-03] MEDS: FUROSEMIDE 40 MG/4 ML VIAL IV SCH (10:00)
[2021-07-03] MEDS: amLODIPine BESYLATE 5 MG TAB PO SCH (10:00)
[2021-07-03] MEDS ORDERED: SODIUM CHL 0.9% 1000 ML BAG XX ONE (10:15)
[2021-07-03] MEDS: DexAMETHasone SOD PHOS 10MG/1ML VIAL INJ IV SCH (10:39)
[2021-07-03] MEDS: PANTOPRAZOLE 40 MG/10 ML VIAL INJ IV SCH (10:39)
[2021-07-03] MEDS: ZINC SULFATE 220mg CAP or TAB PO SCH (10:40)
[2021-07-03] MEDS: SODIUM CHLOR 0.9% PF (SALINE LOCK) 10ML VIAL/SYR IV SCH ×2 (10:40→22:00)
[2021-07-03] MEDS: CHOLECALCIFEROL (VITD3) 2,000 UNIT CAP/TAB PO SCH (10:41)
[2021-07-03] MEDS: ENOXAPARIN SOD 150 MG/1 ML SYRINGE SC SCH (10:41)
[2021-07-03 11:18] LABS: Chloride 106 mmol/L (98-107); Potassium 5.2 mmol/L (3.5-5.1); Sodium 136 mmol/L (136-145)
[2021-07-03 11:19] LABS: Alkaline Phosphatase 165 U/L (45-117); Anion Gap 10 (5-15); Aspartate Aminotransferase 32 U/L (15-37); BUN/Creatinine Ratio 26.2; Carbon Dioxide 20 mmol/L (21-32); GFR African American 14 mL/min; GFR Non-African American 12 mL/min; Glucose 315 mg/dL (74-106)
[2021-07-03 11:20] LABS: Alanine Aminotransferase 29 U/L (16-61); Albumin 1.8 g/dL (3.4-5.0); Bilirubin, Total 0.5 mg/dL (0.2-1.0); CRP High Sensitivity 7.96 mg/dL (< 0.3); Calcium 8.1 mg/dL (8.5-10.1); Magnesium 2.1 mg/dL (1.6-2.6); Phosphorus 6.5 mg/dL (2.5-4.90); Total Protein 6.8 g/dL (6.4-8.2)
[2021-07-03 11:22] LABS: Blood Urea Nitrogen 148 mg/dL (7-18)
[2021-07-03] MEDS ORDERED: ALBUMIN 25% 100 ML IV ONE (16:42)
[2021-07-03] MEDS ORDERED: TPN PER PHARMACY IV NR ×7 (20:00)
[2021-07-04] VITALS (37 sets, daily range): BP systolic 74–125; BP diastolic 38–75
[2021-07-04] MEDS ORDERED: NOREPINEPHRINE 8 MG/250ML KIT 250 ML IV ONE (00:24)
[2021-07-04] MEDS: ACCU-CHEK COMFORT CURVE STRIP VI SCH ×4 (01:12→19:00)
[2021-07-04] MEDS: InsuLIN REG 1unit/0.01ml Soln (100units/ml) SC SCH ×4 (01:12→19:00)
[2021-07-04 04:37] LABS: Basophils # (auto) 0 10 ^3/uL (0-0.2); Basophils % (auto) 0.2 % (0.0-2.0); Eosinophils # (auto) 0.2 10 ^3/uL (0-0.8); Eosinophils % (auto) 2.3 % (0.0-7.0); Hematocrit 27.4 % (41.0-53.0); Lymphocytes # (auto) 0.4 10 ^3/uL (0.4-5.4); Lymphocytes % (auto) 6.2 % (10.0-50.0); Mean Corpuscular Hemoglobin 28.5 pg (28.0-32.0); Mean Corpuscular Volume 86.3 fL (80.0-100.0); Monocytes # (auto) 0.1 10 ^3/uL (0-1.3); Monocytes % (auto) 1.3 % (0.0-12.0); Neutrophils # (auto) 6.4 10 ^3/uL (1.6-8.6); Nucleated Red Blood Cells % 0.1 %; Red Blood Cells 3.17 10^6/uL (4.5-5.90); Red Cell Distribution Width 14.5 % (11.8-14.3); White Blood Cell 7.1 10^3/uL (4.4-10.8)
[2021-07-04 05:00] LABS: INR 1.06 (0.9-1.15)
[2021-07-04] MEDS: MEROPENEM 500MG IVPB 50 ML IV SCH (05:00)
[2021-07-04 05:12] LABS: Albumin 1.8 g/dL (3.4-5.0); Calcium 7.8 mg/dL (8.5-10.1); Potassium 4.4 mmol/L (3.5-5.1)
[2021-07-04 05:15] LABS: BUN/Creatinine Ratio 22.9; Magnesium 2.2 mg/dL (1.6-2.6)
[2021-07-04 05:27] LABS: Bilirubin, Total 0.7 mg/dL (0.2-1.0); Phosphorus 5.3 mg/dL (2.5-4.90); Total Protein 6.2 g/dL (6.4-8.2)
[2021-07-04 05:42] LABS: Pre Albumin 15.4 mg/dL (20.0-40.0)
[2021-07-04] MEDS: PROPOFOL 100 ML IV SCH ×3 (08:14→17:02)
[2021-07-04] MEDS: SODIUM CHLOR 0.9% PF (SALINE LOCK) 10ML VIAL/SYR IV SCH ×2 (10:00→21:55)
[2021-07-04] MEDS: DexAMETHasone SOD PHOS 10MG/1ML VIAL INJ IV SCH (10:00)
[2021-07-04] MEDS: ZINC SULFATE 220mg CAP or TAB PO SCH (10:00)
[2021-07-04] MEDS: ENOXAPARIN SOD 150 MG/1 ML SYRINGE SC SCH (10:00)
[2021-07-04] MEDS: FUROSEMIDE 40 MG/4 ML VIAL IV SCH (10:00)
[2021-07-04] MEDS: PANTOPRAZOLE 40 MG/10 ML VIAL INJ IV SCH (10:00)
[2021-07-04] MEDS: CHOLECALCIFEROL (VITD3) 2,000 UNIT CAP/TAB PO SCH (10:00)
[2021-07-04] MEDS: MIDAZOLAM DRIP 50 mg/50mL 50 ML IV SCH ×3 (10:39→21:56)
[2021-07-04] MEDS: ALBUTEROL SULF 2.5 MG/0.5ML(0.5%) NEB SOLN NEB PRN ×2 (10:45→18:20)
[2021-07-04] MEDS: BUDESONIDE (INHALATION) 0.5 MG/2 ML NEB NEB SCH ×2 (10:45→18:21)
[2021-07-04] MEDS: INSULIN LANTUS (GLARGINE) 1 /0.01ml (100units/ml) SC SCH (14:33)
[2021-07-04] MEDS: fentaNYL Drip 2500mCg/250mlNS 250 ML IV SCH (19:00)
[2021-07-04] MEDS: NOREPINEPHRINE 8 MG/250ML KIT 250 ML IV SCH ×2 (19:00→21:58)
[2021-07-04] MEDS ORDERED: TPN PER PHARMACY IV NR ×6 (20:00)
[2021-07-05] VITALS (51 sets, daily range): BP systolic 68–208; BP diastolic 29–93
[2021-07-05] MEDS: InsuLIN REG 1unit/0.01ml Soln (100units/ml) SC SCH ×4 (00:45→18:27)
[2021-07-05] MEDS: MIDAZOLAM DRIP 50 mg/50mL 50 ML IV SCH ×4 (02:23→22:30)
[2021-07-05] MEDS: PROPOFOL 100 ML IV SCH ×8 (02:25→22:28)
[2021-07-05 05:13] LABS: Basophils # (auto) 0 10 ^3/uL (0-0.2); Basophils % (auto) 0.1 % (0.0-2.0); Eosinophils # (auto) 0 10 ^3/uL (0-0.8); Eosinophils % (auto) 0.1 % (0.0-7.0); Hematocrit 32.9 % (41.0-53.0); Hemoglobin 10.3 g/dL (13.5-17.5); Lymphocytes # (auto) 0.5 10 ^3/uL (0.4-5.4); Lymphocytes % (auto) 3.8 % (10.0-50.0); Mean Corpuscular Hemoglobin 28.2 pg (28.0-32.0); Mean Corpuscular Hgb Conc. 31.2 g/dL (32.0-36.0); Mean Corpuscular Volume 90.4 fL (80.0-100.0); Monocytes # (auto) 0.4 10 ^3/uL (0-1.3); Monocytes % (auto) 2.6 % (0.0-12.0); Neutrophils # (auto) 12.4 10 ^3/uL (1.6-8.6); Neutrophils % (auto) 93.4 % (37.0-80.0); Nucleated Red Blood Cells % 0.1 %; Red Blood Cells 3.64 10^6/uL (4.5-5.90); Red Cell Distribution Width 15.4 % (11.8-14.3); White Blood Cell 13.3 10^3/uL (4.4-10.8)
[2021-07-05 05:44] LABS: BUN/Creatinine Ratio 19.4; Calcium 7.9 mg/dL (8.5-10.1); Magnesium 3.4 mg/dL (1.6-2.6)
[2021-07-05] MEDS: MEROPENEM 500MG IVPB 50 ML IV SCH ×2 (06:00→17:01)
[2021-07-05] MEDS: ACCU-CHEK COMFORT CURVE STRIP VI SCH ×4 (06:02→18:26)
[2021-07-05] MEDS: NOREPINEPHRINE 8 MG/250ML KIT 250 ML IV SCH (06:04)
[2021-07-05 06:20] LABS: Bilirubin, Total 0.7 mg/dL (0.2-1.0)
[2021-07-05] MEDS: ALBUTEROL SULF 2.5 MG/0.5ML(0.5%) NEB SOLN NEB PRN (06:33)
[2021-07-05] MEDS: BUDESONIDE (INHALATION) 0.5 MG/2 ML NEB NEB SCH ×2 (06:33→22:04)
[2021-07-05 08:31] LABS: Potassium 6.8 mmol/L (3.5-5.1)
[2021-07-05] MEDS ORDERED: CALCIUM GLUC 1,000mg/50ml-NS 50 ML IV ONE (09:00)
[2021-07-05] MEDS ORDERED: SODIUM ZIRCONIUM CYCL 10 GM PAK PO ONE (09:00)
[2021-07-05] MEDS ORDERED: ALBUTEROL SULF 2.5 MG/0.5ML(0.5%) NEB SOLN NEB ONE (09:00)
[2021-07-05] MEDS ORDERED: InsuLIN REG 1unit/0.01ml Soln (100units/ml) IV ONE (09:00)
[2021-07-05] MEDS ORDERED: ALBUMIN 25% 100 ML IV ONE (09:10)
[2021-07-05] MEDS: ENOXAPARIN SOD 150 MG/1 ML SYRINGE SC SCH (10:00)
[2021-07-05] MEDS: INSULIN LANTUS (GLARGINE) 1 /0.01ml (100units/ml) SC SCH (10:00)
[2021-07-05] MEDS: CHOLECALCIFEROL (VITD3) 2,000 UNIT CAP/TAB PO SCH (10:00)
[2021-07-05] MEDS: DexAMETHasone SOD PHOS 10MG/1ML VIAL INJ IV SCH (10:00)
[2021-07-05] MEDS: FUROSEMIDE 40 MG/4 ML VIAL IV SCH (10:00)
[2021-07-05] MEDS: SODIUM CHLOR 0.9% PF (SALINE LOCK) 10ML VIAL/SYR IV SCH ×2 (10:00→22:22)
[2021-07-05] MEDS ORDERED: DEXTROSE (50%) 50ML SYRG IV PRN (10:45)
[2021-07-05] MEDS: PANTOPRAZOLE 40 MG/10 ML VIAL INJ IV SCH (11:21)
[2021-07-05] MEDS: SODIUM ZIRCONIUM CYCL 10 GM PAK PO SCH ×2 (18:26→22:23)
[2021-07-05] MEDS: fentaNYL Drip 2500mCg/250mlNS 250 ML IV SCH (19:00)
[2021-07-05] MEDS ORDERED: TPN PER PHARMACY IV NR ×6 (20:00)
[2021-07-06] VITALS (77 sets, daily range): BP systolic 79–161; BP diastolic 42–82
[2021-07-06] MEDS: InsuLIN REG 1unit/0.01ml Soln (100units/ml) SC SCH ×4 (00:53→18:33)
[2021-07-06] MEDS: PROPOFOL 100 ML IV SCH ×4 (04:18→22:52)
[2021-07-06] MEDS: MEROPENEM 500MG IVPB 50 ML IV SCH ×2 (05:52→17:40)
[2021-07-06] MEDS: SODIUM ZIRCONIUM CYCL 10 GM PAK PO SCH (05:53)
[2021-07-06] MEDS: NOREPINEPHRINE 8 MG/250ML KIT 250 ML IV SCH (05:53)
[2021-07-06] MEDS: ACCU-CHEK COMFORT CURVE STRIP VI SCH ×4 (05:54→18:23)
[2021-07-06] MEDS: MIDAZOLAM DRIP 50 mg/50mL 50 ML IV SCH ×2 (05:56→22:53)
[2021-07-06 06:06] LABS: Basophils # (auto) 0 10 ^3/uL (0-0.2); Basophils % (auto) 0.2 % (0.0-2.0); Eosinophils # (auto) 0 10 ^3/uL (0-0.8); Eosinophils % (auto) 0.1 % (0.0-7.0); Hematocrit 24.9 % (41.0-53.0); Hemoglobin 8.9 g/dL (13.5-17.5); Lymphocytes # (auto) 0.6 10 ^3/uL (0.4-5.4); Lymphocytes % (auto) 7.1 % (10.0-50.0); Mean Corpuscular Hemoglobin 30.8 pg (28.0-32.0); Mean Corpuscular Hgb Conc. 35.9 g/dL (32.0-36.0); Mean Corpuscular Volume 85.9 fL (80.0-100.0); Monocytes # (auto) 0.3 10 ^3/uL (0-1.3); Monocytes % (auto) 3.3 % (0.0-12.0); Neutrophils # (auto) 7.5 10 ^3/uL (1.6-8.6); Neutrophils % (auto) 89.3 % (37.0-80.0); Nucleated Red Blood Cells % 0.1 %; Red Cell Distribution Width 14.3 % (11.8-14.3); White Blood Cell 8.4 10^3/uL (4.4-10.8)
[2021-07-06] MEDS: ALBUTEROL SULF 2.5 MG/0.5ML(0.5%) NEB SOLN NEB PRN ×2 (06:12→17:54)
[2021-07-06 06:13] LABS: BUN/Creatinine Ratio 22.6; Calcium 6.8 mg/dL (8.5-10.1); Potassium 4.3 mmol/L (3.5-5.1)
[2021-07-06] MEDS: FUROSEMIDE 40 MG/4 ML VIAL IV SCH ×2 (09:49→17:51)
[2021-07-06] MEDS: CHOLECALCIFEROL (VITD3) 2,000 UNIT CAP/TAB PO SCH (09:49)
[2021-07-06] MEDS: ENOXAPARIN SOD 150 MG/1 ML SYRINGE SC SCH (09:49)
[2021-07-06] MEDS: DexAMETHasone SOD PHOS 10MG/1ML VIAL INJ IV SCH (09:49)
[2021-07-06] MEDS: PANTOPRAZOLE 40 MG/10 ML VIAL INJ IV SCH (09:49)
[2021-07-06] MEDS: SODIUM CHLOR 0.9% PF (SALINE LOCK) 10ML VIAL/SYR IV SCH ×2 (09:49→22:00)
[2021-07-06] MEDS: INSULIN LANTUS (GLARGINE) 1 /0.01ml (100units/ml) SC SCH (10:27)
[2021-07-06] MEDS: Glucerna 1.2 Cal 1Liter BOTTLE GT SCH ×3 (14:10→22:00)
[2021-07-06] MEDS: fentaNYL Drip 2500mCg/250mlNS 250 ML IV SCH (17:45)
[2021-07-06] MEDS: CALCIUM ACETATE 667 MG CAP PO SCH (17:51)
[2021-07-06] MEDS: BUDESONIDE (INHALATION) 0.5 MG/2 ML NEB NEB SCH (17:54)
[2021-07-07] VITALS (76 sets, daily range): BP systolic 35–164; BP diastolic 34–80
[2021-07-07] MEDS: ACCU-CHEK COMFORT CURVE STRIP VI SCH ×4 (00:27→17:30)
[2021-07-07] MEDS: InsuLIN REG 1unit/0.01ml Soln (100units/ml) SC SCH ×4 (00:37→17:30)
[2021-07-07] MEDS: Glucerna 1.2 Cal 1Liter BOTTLE GT SCH ×6 (01:12→22:08)
[2021-07-07] MEDS: PROPOFOL 100 ML IV SCH ×3 (01:13→22:19)
[2021-07-07] MEDS: MEROPENEM 500MG IVPB 50 ML IV SCH ×2 (05:53→17:33)
[2021-07-07] MEDS: fentaNYL Drip 2500mCg/250mlNS 250 ML IV SCH ×2 (05:53→22:25)
[2021-07-07] MEDS: FUROSEMIDE 40 MG/4 ML VIAL IV SCH (05:54)
[2021-07-07] MEDS: NOREPINEPHRINE 8 MG/250ML KIT 250 ML IV SCH (05:54)
[2021-07-07 06:28] LABS: Basophils # (auto) 0.1 10 ^3/uL (0-0.2); Basophils % (auto) 0.3 % (0.0-2.0); Eosinophils # (auto) 0 10 ^3/uL (0-0.8); Eosinophils % (auto) 0.1 % (0.0-7.0); Hematocrit 28.5 % (41.0-53.0); Hemoglobin 9.7 g/dL (13.5-17.5); Lymphocytes # (auto) 0.8 10 ^3/uL (0.4-5.4); Lymphocytes % (auto) 4.6 % (10.0-50.0); Mean Corpuscular Hemoglobin 30.3 pg (28.0-32.0); Mean Corpuscular Hgb Conc. 34.1 g/dL (32.0-36.0); Mean Corpuscular Volume 88.8 fL (80.0-100.0); Monocytes # (auto) 0.6 10 ^3/uL (0-1.3); Monocytes % (auto) 3.7 % (0.0-12.0); Neutrophils # (auto) 15.1 10 ^3/uL (1.6-8.6); Neutrophils % (auto) 91.3 % (37.0-80.0); Nucleated Red Blood Cells % 0.1 %; Red Blood Cells 3.21 10^6/uL (4.5-5.90); White Blood Cell 16.6 10^3/uL (4.4-10.8)
[2021-07-07 06:46] LABS: INR 0.97 (0.9-1.15)
[2021-07-07 07:07] LABS: Potassium 5.5 mmol/L (3.5-5.1)
[2021-07-07 07:26] LABS: Albumin 1.8 g/dL (3.4-5.0); Bilirubin, Total 0.9 mg/dL (0.2-1.0); CRP High Sensitivity 8.4 mg/dL (< 0.3); Calcium 6.2 mg/dL (8.5-10.1)
[2021-07-07 07:31] LABS: BUN/Creatinine Ratio 23.2
[2021-07-07] MEDS: CALCIUM ACETATE 667 MG CAP PO SCH ×3 (08:49→17:32)
[2021-07-07] MEDS ORDERED: SODIUM ZIRCONIUM CYCL 10 GM PAK PO ONE (09:00)
[2021-07-07] MEDS: INSULIN LANTUS (GLARGINE) 1 /0.01ml (100units/ml) SC SCH (10:00)
[2021-07-07] MEDS: ENOXAPARIN SOD 150 MG/1 ML SYRINGE SC SCH (10:00)
[2021-07-07] MEDS: PANTOPRAZOLE 40 MG/10 ML VIAL INJ IV SCH (10:00)
[2021-07-07] MEDS: DexAMETHasone SOD PHOS 10MG/1ML VIAL INJ IV SCH (10:00)
[2021-07-07] MEDS: CHOLECALCIFEROL (VITD3) 2,000 UNIT CAP/TAB PO SCH (10:00)
[2021-07-07] MEDS: SODIUM CHLOR 0.9% PF (SALINE LOCK) 10ML VIAL/SYR IV SCH ×2 (10:00→22:08)
[2021-07-07] MEDS ORDERED: ALBUMIN 25% 100 ML IV ONE ×2 (13:00→13:18)
[2021-07-07] MEDS: SODIUM ZIRCONIUM CYCL 10 GM PAK PO SCH ×2 (14:00→22:18)
[2021-07-07] MEDS: ALBUMIN 25% 100 ML IV SCH ×2 (14:00→15:00)
[2021-07-07] MEDS: BUDESONIDE (INHALATION) 0.5 MG/2 ML NEB NEB SCH ×2 (18:14→22:00)
[2021-07-07] MEDS: ALBUTEROL SULF 2.5 MG/0.5ML(0.5%) NEB SOLN NEB PRN (18:15)
[2021-07-07 22:00] LABS: BUN/Creatinine Ratio 21.2; Calcium 7.4 mg/dL (8.5-10.1); Potassium 4.5 mmol/L (3.5-5.1)
[2021-07-07] MEDS: MIDAZOLAM DRIP 50 mg/50mL 50 ML IV SCH (22:18)
[2021-07-08] VITALS (31 sets, daily range): BP systolic 88–152; BP diastolic 38–68
[2021-07-08] MEDS: InsuLIN REG 1unit/0.01ml Soln (100units/ml) SC SCH ×5 (00:46→23:58)
[2021-07-08] MEDS: Glucerna 1.2 Cal 1Liter BOTTLE GT SCH ×6 (02:00→22:00)
[2021-07-08] MEDS: NOREPINEPHRINE 8 MG/250ML KIT 250 ML IV SCH (05:51)
[2021-07-08] MEDS: MEROPENEM 500MG IVPB 50 ML IV SCH (05:51)
[2021-07-08] MEDS: SODIUM ZIRCONIUM CYCL 10 GM PAK PO SCH ×2 (05:52→15:06)
[2021-07-08] MEDS: ACCU-CHEK COMFORT CURVE STRIP VI SCH ×5 (05:52→23:56)
[2021-07-08 05:53] LABS: Hemoglobin 7.6 g/dL (13.5-17.5); White Blood Cell 7.3 10^3/uL (4.4-10.8)
[2021-07-08] MEDS: MIDAZOLAM DRIP 50 mg/50mL 50 ML IV SCH ×3 (05:56→23:59)
[2021-07-08] MEDS: PROPOFOL 100 ML IV SCH ×2 (05:56→23:58)
[2021-07-08 05:57] LABS: Hematocrit 21.4 % (41.0-53.0); Mean Corpuscular Hemoglobin 30.2 pg (28.0-32.0); Mean Corpuscular Hgb Conc. 35.3 g/dL (32.0-36.0); Mean Corpuscular Volume 85.6 fL (80.0-100.0); Red Cell Distribution Width 14.6 % (11.8-14.3)
[2021-07-08] MEDS: BUDESONIDE (INHALATION) 0.5 MG/2 ML NEB NEB SCH ×2 (06:04→18:44)
[2021-07-08] MEDS: ALBUTEROL SULF 2.5 MG/0.5ML(0.5%) NEB SOLN NEB PRN ×2 (06:04→18:44)
[2021-07-08 06:10] LABS: Basophils % (manual) 0 (0.0-2.0); Blast Cells 0; Calcium 6.2 mg/dL (8.5-10.1); Myelocytes % 0; Potassium 3.8 mmol/L (3.5-5.1); Promyelocytes % 0; Reactive Lymphocytes 0
[2021-07-08 06:12] LABS: BUN/Creatinine Ratio 22.5
[2021-07-08] MEDS: CALCIUM ACETATE 667 MG CAP PO SCH ×4 (08:00→18:00)
[2021-07-08] MEDS: DexAMETHasone SOD PHOS 10MG/1ML VIAL INJ IV SCH (11:57)
[2021-07-08] MEDS: SODIUM CHLOR 0.9% PF (SALINE LOCK) 10ML VIAL/SYR IV SCH ×2 (11:57→22:00)
[2021-07-08] MEDS: CHOLECALCIFEROL (VITD3) 2,000 UNIT CAP/TAB PO SCH (11:57)
[2021-07-08] MEDS: PANTOPRAZOLE 40 MG/10 ML VIAL INJ IV SCH (11:57)
[2021-07-08] MEDS: ENOXAPARIN SOD 150 MG/1 ML SYRINGE SC SCH (11:58)
[2021-07-08] MEDS: INSULIN LANTUS (GLARGINE) 1 /0.01ml (100units/ml) SC SCH (12:25)
[2021-07-08 12:26] LABS: Band Neutrophils % (manual) 2; Eosinophils % (manual) 1 (0-7); Lymphocytes % (manual) 11 (10.0-50.0); Metamyelocytes % 2; Monocytes % (manual) 4 (0-12)
[2021-07-08] MEDS: MEROPENEM 1GM IVPB 100 ML IV SCH (23:56)
[2021-07-09] VITALS (33 sets, daily range): BP systolic 87–169; BP diastolic 39–75
[2021-07-09] MEDS: Glucerna 1.2 Cal 1Liter BOTTLE GT SCH ×6 (02:00→20:46)
[2021-07-09] MEDS: fentaNYL Drip 2500mCg/250mlNS 250 ML IV SCH (03:45)
[2021-07-09 05:31] LABS: Basophils # (auto) 0 10 ^3/uL (0-0.2); Basophils % (auto) 0.5 % (0.0-2.0); Lymphocytes # (auto) 0.8 10 ^3/uL (0.4-5.4); Monocytes # (auto) 0.3 10 ^3/uL (0-1.3)
[2021-07-09 05:35] LABS: Eosinophils # (auto) 0.2 10 ^3/uL (0-0.8); Eosinophils % (auto) 1.6 % (0.0-7.0); Hematocrit 24.2 % (41.0-53.0); Hemoglobin 8.1 g/dL (13.5-17.5); Lymphocytes % (auto) 8.5 % (10.0-50.0); Mean Corpuscular Hgb Conc. 33.5 g/dL (32.0-36.0); Mean Corpuscular Volume 86.4 fL (80.0-100.0); Monocytes % (auto) 3.1 % (0.0-12.0); Neutrophils # (auto) 8.6 10 ^3/uL (1.6-8.6); Neutrophils % (auto) 86.3 % (37.0-80.0); Nucleated Red Blood Cells % 0.1 %; Red Cell Distribution Width 14.7 % (11.8-14.3)
[2021-07-09 05:59] LABS: Potassium 3.9 mmol/L (3.5-5.1)
[2021-07-09] MEDS: InsuLIN REG 1unit/0.01ml Soln (100units/ml) SC SCH ×3 (06:00→18:00)
[2021-07-09 06:07] LABS: BUN/Creatinine Ratio 23.2; Calcium 7.3 mg/dL (8.5-10.1)
[2021-07-09] MEDS: MIDAZOLAM DRIP 50 mg/50mL 50 ML IV SCH ×4 (06:26→20:10)
[2021-07-09] MEDS: ACCU-CHEK COMFORT CURVE STRIP VI SCH ×3 (06:26→18:00)
[2021-07-09] MEDS: NOREPINEPHRINE 8 MG/250ML KIT 250 ML IV SCH ×2 (06:26→20:28)
[2021-07-09] MEDS: ALBUTEROL SULF 2.5 MG/0.5ML(0.5%) NEB SOLN NEB PRN ×2 (07:51→19:20)
[2021-07-09] MEDS: BUDESONIDE (INHALATION) 0.5 MG/2 ML NEB NEB SCH ×2 (07:51→19:20)
[2021-07-09] MEDS: PROPOFOL 100 ML IV SCH ×3 (09:24→20:10)
[2021-07-09] MEDS: CALCIUM ACETATE 667 MG CAP PO SCH ×3 (09:43→19:48)
[2021-07-09] MEDS: DexAMETHasone SOD PHOS 10MG/1ML VIAL INJ IV SCH (09:43)
[2021-07-09] MEDS: PANTOPRAZOLE 40 MG/10 ML VIAL INJ IV SCH (09:44)
[2021-07-09] MEDS: SODIUM CHLOR 0.9% PF (SALINE LOCK) 10ML VIAL/SYR IV SCH ×2 (09:46→20:46)
[2021-07-09] MEDS: CHOLECALCIFEROL (VITD3) 2,000 UNIT CAP/TAB PO SCH (09:47)
[2021-07-09] MEDS: ENOXAPARIN SOD 150 MG/1 ML SYRINGE SC SCH (09:47)
[2021-07-09] MEDS: INSULIN LANTUS (GLARGINE) 1 /0.01ml (100units/ml) SC SCH (09:49)
[2021-07-09] MEDS ORDERED: ALBUMIN 25% 100 ML IV ONE (12:30)
[2021-07-09] MEDS: MEROPENEM 1GM IVPB 100 ML IV SCH ×2 (13:39→20:45)
[2021-07-10] VITALS (26 sets, daily range): BP systolic 95–186; BP diastolic 48–77
[2021-07-10] MEDS: ACCU-CHEK COMFORT CURVE STRIP VI SCH ×3 (00:48→14:46)
[2021-07-10] MEDS: MIDAZOLAM DRIP 50 mg/50mL 50 ML IV SCH ×3 (00:49→10:38)
[2021-07-10] MEDS: PROPOFOL 100 ML IV SCH ×3 (00:50→10:33)
[2021-07-10] MEDS: InsuLIN REG 1unit/0.01ml Soln (100units/ml) SC SCH ×4 (00:51→18:00)
[2021-07-10] MEDS: Glucerna 1.2 Cal 1Liter BOTTLE GT SCH ×5 (04:47→22:00)
[2021-07-10 05:02] LABS: Basophils # (auto) 0.1 10 ^3/uL (0-0.2); Eosinophils # (auto) 0.1 10 ^3/uL (0-0.8); Hematocrit 23.3 % (41.0-53.0); Monocytes % (auto) 2.9 % (0.0-12.0); Nucleated Red Blood Cells % 0.2 %; Red Cell Distribution Width 14.7 % (11.8-14.3)
[2021-07-10 05:08] LABS: Eosinophils % (auto) 1.4 % (0.0-7.0); Hemoglobin 7.7 g/dL (13.5-17.5); Lymphocytes # (auto) 0.6 10 ^3/uL (0.4-5.4); Lymphocytes % (auto) 6.8 % (10.0-50.0); Mean Corpuscular Hemoglobin 28.3 pg (28.0-32.0); Mean Corpuscular Volume 85.7 fL (80.0-100.0); Monocytes # (auto) 0.2 10 ^3/uL (0-1.3); Neutrophils # (auto) 7.5 10 ^3/uL (1.6-8.6); Neutrophils % (auto) 87.9 % (37.0-80.0); Red Blood Cells 2.72 10^6/uL (4.5-5.90); White Blood Cell 8.5 10^3/uL (4.4-10.8)
[2021-07-10 05:19] LABS: Calcium 7.7 mg/dL (8.5-10.1); Potassium 4.3 mmol/L (3.5-5.1)
[2021-07-10 05:22] LABS: BUN/Creatinine Ratio 21.2
[2021-07-10] MEDS: BUDESONIDE (INHALATION) 0.5 MG/2 ML NEB NEB SCH ×2 (06:34→23:35)
[2021-07-10] MEDS: ALBUTEROL SULF 2.5 MG/0.5ML(0.5%) NEB SOLN NEB PRN ×2 (06:34→23:35)
[2021-07-10] MEDS: fentaNYL Drip 2500mCg/250mlNS 250 ML IV SCH (09:00)
[2021-07-10] MEDS: DexAMETHasone SOD PHOS 10MG/1ML VIAL INJ IV SCH (10:56)
[2021-07-10] MEDS: CALCIUM ACETATE 667 MG CAP PO SCH ×3 (10:56→18:00)
[2021-07-10] MEDS: MEROPENEM 1GM IVPB 100 ML IV SCH ×2 (10:58→22:17)
[2021-07-10] MEDS: PANTOPRAZOLE 40 MG/10 ML VIAL INJ IV SCH (10:58)
[2021-07-10] MEDS: ENOXAPARIN SOD 150 MG/1 ML SYRINGE SC SCH (10:59)
[2021-07-10] MEDS: SODIUM CHLOR 0.9% PF (SALINE LOCK) 10ML VIAL/SYR IV SCH ×2 (10:59→22:25)
[2021-07-10] MEDS: CHOLECALCIFEROL (VITD3) 2,000 UNIT CAP/TAB PO SCH (10:59)
[2021-07-10] MEDS: INSULIN LANTUS (GLARGINE) 1 /0.01ml (100units/ml) SC SCH (14:45)
[2021-07-10 21:06] LABS: % Iron Saturation 17.1 % (20-55)
[2021-07-11] VITALS (28 sets, daily range): BP systolic 95–174; BP diastolic 6–73
[2021-07-11] MEDS: ACCU-CHEK COMFORT CURVE STRIP VI SCH ×5 (00:16→18:01)
[2021-07-11] MEDS: InsuLIN REG 1unit/0.01ml Soln (100units/ml) SC SCH ×4 (00:22→18:02)
[2021-07-11] MEDS: Glucerna 1.2 Cal 1Liter BOTTLE GT SCH ×5 (02:00→18:01)
[2021-07-11 04:16] LABS: Hemoglobin 8.4 g/dL (13.5-17.5)
[2021-07-11 04:26] LABS: Potassium 4.6 mmol/L (3.5-5.1)
[2021-07-11 04:35] LABS: BUN/Creatinine Ratio 19.6; CRP High Sensitivity 13.1 mg/dL (< 0.3); Calcium 7.8 mg/dL (8.5-10.1)
[2021-07-11] MEDS: NOREPINEPHRINE 8 MG/250ML KIT 250 ML IV SCH (06:39)
[2021-07-11] MEDS: CALCIUM ACETATE 667 MG CAP PO SCH ×3 (08:00→18:01)
[2021-07-11] MEDS: MIDAZOLAM DRIP 50 mg/50mL 50 ML IV SCH ×2 (09:15→17:48)
[2021-07-11] MEDS: CHOLECALCIFEROL (VITD3) 2,000 UNIT CAP/TAB PO SCH (10:00)
[2021-07-11] MEDS: ENOXAPARIN SOD 150 MG/1 ML SYRINGE SC SCH (10:00)
[2021-07-11] MEDS: INSULIN LANTUS (GLARGINE) 1 /0.01ml (100units/ml) SC SCH (10:00)
[2021-07-11] MEDS: PANTOPRAZOLE 40 MG/10 ML VIAL INJ IV SCH (10:00)
[2021-07-11] MEDS: MEROPENEM 1GM IVPB 100 ML IV SCH (10:00)
[2021-07-11] MEDS: SODIUM CHLOR 0.9% PF (SALINE LOCK) 10ML VIAL/SYR IV SCH (10:00)
[2021-07-11] MEDS: DexAMETHasone SOD PHOS 10MG/1ML VIAL INJ IV SCH (10:00)
[2021-07-11] MEDS: BUDESONIDE (INHALATION) 0.5 MG/2 ML NEB NEB SCH ×2 (10:30→20:13)
[2021-07-11] MEDS: ALBUTEROL SULF 2.5 MG/0.5ML(0.5%) NEB SOLN NEB PRN ×2 (10:30→20:13)
[2021-07-11] MEDS: PROPOFOL 100 ML IV SCH ×3 (12:10→16:50)
[2021-07-11] MEDS: fentaNYL Drip 2500mCg/250mlNS 250 ML IV SCH (12:12)
[2021-07-11] MEDS: ALBUMIN 25% 100 ML IV SCH ×2 (13:00→17:52)
[2021-07-11] MEDS ORDERED: EPOETIN ALFA-EPBX 10,000 UNIT/1ML VIAL SC ONE (21:00)
[2021-07-11] MEDS ORDERED: MEROPENEM 1GM IVPB 100 ML IV ONE (22:56)
[2021-07-12] VITALS (22 sets, daily range): BP systolic 108–171; BP diastolic 53–69
[2021-07-12] MEDS: Glucerna 1.2 Cal 1Liter BOTTLE GT SCH ×6 (01:55→23:19)
[2021-07-12] MEDS: MEROPENEM 1GM IVPB 100 ML IV SCH ×3 (01:55→23:19)
[2021-07-12] MEDS: ACCU-CHEK COMFORT CURVE STRIP VI SCH ×5 (01:56→23:18)
[2021-07-12] MEDS: SODIUM CHLOR 0.9% PF (SALINE LOCK) 10ML VIAL/SYR IV SCH ×3 (01:56→23:18)
[2021-07-12] MEDS: MIDAZOLAM DRIP 50 mg/50mL 50 ML IV SCH (01:57)
[2021-07-12] MEDS: PROPOFOL 100 ML IV SCH ×3 (01:58→15:05)
[2021-07-12 05:21] LABS: Albumin 2.3 g/dL (3.4-5.0); Magnesium 2.4 mg/dL (1.6-2.6); Potassium 3.9 mmol/L (3.5-5.1)
[2021-07-12 05:26] LABS: BUN/Creatinine Ratio 19.5; Bilirubin, Total 0.6 mg/dL (0.2-1.0); Total Protein 6.6 g/dL (6.4-8.2)
[2021-07-12] MEDS: NOREPINEPHRINE 8 MG/250ML KIT 250 ML IV SCH (06:00)
[2021-07-12] MEDS: InsuLIN REG 1unit/0.01ml Soln (100units/ml) SC SCH ×5 (06:00→23:20)
[2021-07-12] MEDS: CALCIUM ACETATE 667 MG CAP PO SCH ×3 (08:00→18:48)
[2021-07-12] MEDS: PANTOPRAZOLE 40 MG/10 ML VIAL INJ IV SCH (10:00)
[2021-07-12] MEDS: INSULIN LANTUS (GLARGINE) 1 /0.01ml (100units/ml) SC SCH (10:00)
[2021-07-12] MEDS: DexAMETHasone SOD PHOS 10MG/1ML VIAL INJ IV SCH (10:19)
[2021-07-12] MEDS: CHOLECALCIFEROL (VITD3) 2,000 UNIT CAP/TAB PO SCH (10:23)
[2021-07-12] MEDS: ENOXAPARIN SOD 150 MG/1 ML SYRINGE SC SCH (10:24)
[2021-07-12] MEDS: BUDESONIDE (INHALATION) 0.5 MG/2 ML NEB NEB SCH ×2 (11:16→18:52)
[2021-07-12] MEDS: ALBUTEROL SULF 2.5 MG/0.5ML(0.5%) NEB SOLN NEB PRN ×2 (11:16→18:52)
[2021-07-12] MEDS: SODIUM FERR GLUC 62.5MG/5ML 125 MG in SODIUM CHL 0.9% 100 ML IV SCH (12:59)
[2021-07-12] MEDS: fentaNYL Drip 2500mCg/250mlNS 250 ML IV SCH (23:21)
[2021-07-13] VITALS (29 sets, daily range): BP systolic 82–174; BP diastolic 30–78
[2021-07-13] MEDS: Glucerna 1.2 Cal 1Liter BOTTLE GT SCH ×5 (02:50→20:42)
[2021-07-13] MEDS: NOREPINEPHRINE 8 MG/250ML KIT 250 ML IV SCH (02:50)
[2021-07-13 05:38] LABS: Hemoglobin 8.5 g/dL (13.5-17.5); Mean Corpuscular Hemoglobin 29.5 pg (28.0-32.0); Mean Corpuscular Hgb Conc. 34.1 g/dL (32.0-36.0); Mean Corpuscular Volume 86.4 fL (80.0-100.0); Red Blood Cells 2.89 10^6/uL (4.5-5.90); Red Cell Distribution Width 14.5 % (11.8-14.3); White Blood Cell 8.3 10^3/uL (4.4-10.8)
[2021-07-13 05:55] LABS: Basophils % (manual) 0 (0.0-2.0); Blast Cells 0; Metamyelocytes % 0; Promyelocytes % 0; Reactive Lymphocytes 0
[2021-07-13 06:00] LABS: BUN/Creatinine Ratio 18.3; Calcium 7.5 mg/dL (8.5-10.1); Potassium 4.3 mmol/L (3.5-5.1)
[2021-07-13] MEDS: InsuLIN REG 1unit/0.01ml Soln (100units/ml) SC SCH ×3 (06:00→18:00)
[2021-07-13] MEDS: ACCU-CHEK COMFORT CURVE STRIP VI SCH ×2 (06:01→12:00)
[2021-07-13] MEDS: ALBUTEROL SULF 2.5 MG/0.5ML(0.5%) NEB SOLN NEB PRN ×2 (06:51→22:25)
[2021-07-13] MEDS: BUDESONIDE (INHALATION) 0.5 MG/2 ML NEB NEB SCH ×2 (06:51→22:25)
[2021-07-13 07:09] LABS: Band Neutrophils % (manual) 13; Eosinophils % (manual) 6 (0-7); Lymphocytes % (manual) 4 (10.0-50.0); Monocytes % (manual) 4 (0-12); Myelocytes % 5
[2021-07-13] MEDS: MIDAZOLAM DRIP 50 mg/50mL 50 ML IV SCH ×3 (08:54→17:25)
[2021-07-13] MEDS ORDERED: ALBUMIN 25% 100 ML IV PRN (09:00)
[2021-07-13] MEDS: PROPOFOL 100 ML IV SCH ×3 (09:15→20:42)
[2021-07-13] MEDS ORDERED: POTASSIUM CHL 10MEQ/50ML 50 ML IV SCH (10:15)
[2021-07-13] MEDS: fentaNYL Drip 2500mCg/250mlNS 250 ML IV SCH (10:18)
[2021-07-13] MEDS: CALCIUM ACETATE 667 MG CAP PO SCH ×2 (10:31→12:00)
[2021-07-13] MEDS: MEROPENEM 1GM IVPB 100 ML IV SCH (10:32)
[2021-07-13] MEDS: CHOLECALCIFEROL (VITD3) 2,000 UNIT CAP/TAB PO SCH (10:32)
[2021-07-13] MEDS: DexAMETHasone SOD PHOS 10MG/1ML VIAL INJ IV SCH (10:32)
[2021-07-13] MEDS: SODIUM CHLOR 0.9% PF (SALINE LOCK) 10ML VIAL/SYR IV SCH (10:32)
[2021-07-13] MEDS: PANTOPRAZOLE 40 MG/10 ML VIAL INJ IV SCH (10:32)
[2021-07-13] MEDS: ENOXAPARIN SOD 150 MG/1 ML SYRINGE SC SCH (10:33)
[2021-07-13] MEDS: INSULIN LANTUS (GLARGINE) 1 /0.01ml (100units/ml) SC SCH (10:34)
[2021-07-13] MEDS: SODIUM FERR GLUC 62.5MG/5ML 125 MG in SODIUM CHL 0.9% 100 ML IV SCH (12:30)
[2021-07-13 20:44] LABS: BUN/Creatinine Ratio 15.7; Calcium 7.6 mg/dL (8.5-10.1); Magnesium 2.5 mg/dL (1.6-2.6); Potassium 3.8 mmol/L (3.5-5.1)
[2021-07-13] MEDS ORDERED: EPOETIN ALFA-EPBX 4,000 UNIT/ML VIAL SC ONE (21:00)
[2021-07-14] VITALS (28 sets, daily range): BP systolic 89–167; BP diastolic 24–79
[2021-07-14] MEDS: ACCU-CHEK COMFORT CURVE STRIP VI SCH ×5 (00:22→18:28)
[2021-07-14] MEDS: MEROPENEM 1GM IVPB 100 ML IV SCH ×2 (00:23→11:29)
[2021-07-14] MEDS: Glucerna 1.2 Cal 1Liter BOTTLE GT SCH ×6 (00:23→18:27)
[2021-07-14] MEDS: SODIUM CHLOR 0.9% PF (SALINE LOCK) 10ML VIAL/SYR IV SCH ×2 (00:24→11:21)
[2021-07-14] MEDS: InsuLIN REG 1unit/0.01ml Soln (100units/ml) SC SCH ×4 (06:00→18:00)
[2021-07-14] MEDS: NOREPINEPHRINE 8 MG/250ML KIT 250 ML IV SCH (07:21)
[2021-07-14] MEDS: BUDESONIDE (INHALATION) 0.5 MG/2 ML NEB NEB SCH ×2 (07:25→18:42)
[2021-07-14] MEDS: ALBUTEROL SULF 2.5 MG/0.5ML(0.5%) NEB SOLN NEB PRN ×2 (07:25→18:42)
[2021-07-14] MEDS: CALCIUM ACETATE 667 MG CAP PO SCH ×3 (10:00→18:28)
[2021-07-14] MEDS: DexAMETHasone SOD PHOS 10MG/1ML VIAL INJ IV SCH (11:20)
[2021-07-14] MEDS: PANTOPRAZOLE 40 MG/10 ML VIAL INJ IV SCH (11:21)
[2021-07-14] MEDS: CHOLECALCIFEROL (VITD3) 2,000 UNIT CAP/TAB PO SCH (11:22)
[2021-07-14] MEDS: ENOXAPARIN SOD 150 MG/1 ML SYRINGE SC SCH (11:22)
[2021-07-14] MEDS: SODIUM FERR GLUC 62.5MG/5ML 125 MG in SODIUM CHL 0.9% 100 ML IV SCH (13:21)
[2021-07-14] MEDS: INSULIN LANTUS (GLARGINE) 1 /0.01ml (100units/ml) SC SCH (13:23)
[2021-07-14] MEDS: PROPOFOL 100 ML IV SCH (14:10)
[2021-07-14 15:52] LABS: Basophils # (auto) 0 10 ^3/uL (0-0.2); Basophils % (auto) 0.1 % (0.0-2.0); Eosinophils # (auto) 0.5 10 ^3/uL (0-0.8); Eosinophils % (auto) 3.7 % (0.0-7.0); Hematocrit 28.6 % (41.0-53.0); Hemoglobin 9.3 g/dL (13.5-17.5); Lymphocytes # (auto) 0.4 10 ^3/uL (0.4-5.4); Lymphocytes % (auto) 3.5 % (10.0-50.0); Mean Corpuscular Hemoglobin 29.3 pg (28.0-32.0); Mean Corpuscular Hgb Conc. 32.4 g/dL (32.0-36.0); Mean Corpuscular Volume 90.5 fL (80.0-100.0); Monocytes # (auto) 0.7 10 ^3/uL (0-1.3); Monocytes % (auto) 5.7 % (0.0-12.0); Nucleated Red Blood Cells % 0.4 %; Red Blood Cells 3.17 10^6/uL (4.5-5.90); Red Cell Distribution Width 15.8 % (11.8-14.3); White Blood Cell 12.6 10^3/uL (4.4-10.8)
[2021-07-14 15:56] LABS: Calcium 7.9 mg/dL (8.5-10.1); Potassium 5.4 mmol/L (3.5-5.1)
[2021-07-14] MEDS ORDERED: SODIUM ZIRCONIUM CYCL 10 GM PAK PO ONE (17:00)
[2021-07-14] MEDS: fentaNYL Drip 2500mCg/250mlNS 250 ML IV SCH (18:29)
[2021-07-14] MEDS: MIDAZOLAM DRIP 50 mg/50mL 50 ML IV SCH (19:34)
[2021-07-14] MEDS: SODIUM ZIRCONIUM CYCL 10 GM PAK PO SCH (22:00)
[2021-07-15] VITALS (29 sets, daily range): BP systolic 77–142; BP diastolic 28–100
[2021-07-15] MEDS: Glucerna 1.2 Cal 1Liter BOTTLE GT SCH ×7 (00:28→22:00)
[2021-07-15] MEDS: MEROPENEM 1GM IVPB 100 ML IV SCH ×2 (00:28→11:00)
[2021-07-15] MEDS: MIDAZOLAM DRIP 50 mg/50mL 50 ML IV SCH ×3 (00:28→22:30)
[2021-07-15] MEDS: SODIUM CHLOR 0.9% PF (SALINE LOCK) 10ML VIAL/SYR IV SCH ×3 (00:29→22:00)
[2021-07-15] MEDS: InsuLIN REG 1unit/0.01ml Soln (100units/ml) SC SCH ×4 (00:30→18:00)
[2021-07-15] MEDS: ACCU-CHEK COMFORT CURVE STRIP VI SCH ×4 (00:34→18:00)
[2021-07-15] MEDS ORDERED: PHENYLEPHRINE IV 250 ML IV ONE ×2 (01:21→06:25)
[2021-07-15 05:37] LABS: Eosinophils # (auto) 0.4 10 ^3/uL (0-0.8); Lymphocytes # (auto) 0.5 10 ^3/uL (0.4-5.4); Neutrophils # (auto) 8.1 10 ^3/uL (1.6-8.6)
[2021-07-15 05:42] LABS: Basophils # (auto) 0 10 ^3/uL (0-0.2); Basophils % (auto) 0.3 % (0.0-2.0); Hematocrit 21.5 % (41.0-53.0); Hemoglobin 7.1 g/dL (13.5-17.5); Lymphocytes % (auto) 4.8 % (10.0-50.0); Mean Corpuscular Hemoglobin 30.6 pg (28.0-32.0); Mean Corpuscular Hgb Conc. 32.7 g/dL (32.0-36.0); Mean Corpuscular Volume 93.5 fL (80.0-100.0); Monocytes # (auto) 0.7 10 ^3/uL (0-1.3); Neutrophils % (auto) 83.9 % (37.0-80.0); Nucleated Red Blood Cells % 0.7 %; Red Cell Distribution Width 16.4 % (11.8-14.3); White Blood Cell 9.6 10^3/uL (4.4-10.8)
[2021-07-15] MEDS: SODIUM ZIRCONIUM CYCL 10 GM PAK PO SCH (05:44)
[2021-07-15] MEDS: NOREPINEPHRINE 8 MG/250ML KIT 250 ML IV SCH ×2 (05:44→17:15)
[2021-07-15 05:56] LABS: BUN/Creatinine Ratio 13.9
[2021-07-15 06:57] LABS: Calcium 5.2 mg/dL (8.5-10.1)
[2021-07-15] MEDS ORDERED: CALCIUM GLUC 1,000mg/50ml-NS 50 ML IV ONE ×2 (07:15→07:16)
[2021-07-15] MEDS: CALCIUM ACETATE 667 MG CAP PO SCH ×3 (08:00→18:00)
[2021-07-15] MEDS: fentaNYL Drip 2500mCg/250mlNS 250 ML IV SCH ×2 (08:00→22:30)
[2021-07-15] MEDS: BUDESONIDE (INHALATION) 0.5 MG/2 ML NEB NEB SCH ×2 (10:00→18:23)
[2021-07-15] MEDS: ENOXAPARIN SOD 150 MG/1 ML SYRINGE SC SCH (10:00)
[2021-07-15] MEDS: DexAMETHasone SOD PHOS 10MG/1ML VIAL INJ IV SCH (11:00)
[2021-07-15] MEDS: CHOLECALCIFEROL (VITD3) 2,000 UNIT CAP/TAB PO SCH (11:00)
[2021-07-15] MEDS: INSULIN LANTUS (GLARGINE) 1 /0.01ml (100units/ml) SC SCH (13:47)
[2021-07-15] MEDS: VASOPRESSIN 50 UNITS in D5W 5% 247.5 ML IV SCH (13:50)
[2021-07-15] MEDS ORDERED: SODIUM BICARB 50ML SYR 100 ML in D5W 5% 1,000 ML IV ONE (14:00)
[2021-07-15] MEDS ORDERED: SODIUM BICARBONATE 8.4% INJ 50ML SYRINGE IV ONE (14:00)
[2021-07-15] MEDS: PHENYLEPHRINE IV 250 ML IV SCH ×3 (15:05→23:25)
[2021-07-15] MEDS: ALBUTEROL SULF 2.5 MG/0.5ML(0.5%) NEB SOLN NEB PRN (16:06)
[2021-07-15] MEDS: PHENYLEPHRINE INJ 80 MG in SODIUM CHL 0.9% 242 ML IV SCH (19:00)
[2021-07-15 19:19] LABS: Hematocrit 29.9 % (41.0-53.0); Hemoglobin 9.8 g/dL (13.5-17.5)
[2021-07-15] MEDS ORDERED: EPOETIN ALFA-EPBX 4,000 UNIT/ML VIAL SC ONE (21:00)
[2021-07-15] MEDS: PROPOFOL 100 ML IV SCH (22:30)
[2021-07-16] VITALS (28 sets, daily range): BP systolic 93–180; BP diastolic 45–85
[2021-07-16] MEDS: MEROPENEM 1GM IVPB 100 ML IV SCH ×3 (01:03→22:45)
[2021-07-16] MEDS: PANTOPRAZOLE 40 MG/10 ML VIAL INJ IV SCH ×3 (01:03→22:45)
[2021-07-16] MEDS: Glucerna 1.2 Cal 1Liter BOTTLE GT SCH ×6 (02:00→22:00)
[2021-07-16] MEDS: PROPOFOL 100 ML IV SCH (02:33)
[2021-07-16 03:53] LABS: Basophils # (auto) 0.1 10 ^3/uL (0-0.2); Basophils % (auto) 0.6 % (0.0-2.0); Eosinophils # (auto) 0.7 10 ^3/uL (0-0.8); Eosinophils % (auto) 4.9 % (0.0-7.0); Hematocrit 30.2 % (41.0-53.0); Hemoglobin 9.7 g/dL (13.5-17.5); Lymphocytes # (auto) 0.9 10 ^3/uL (0.4-5.4); Lymphocytes % (auto) 6.1 % (10.0-50.0); Mean Corpuscular Hemoglobin 28.8 pg (28.0-32.0); Mean Corpuscular Hgb Conc. 32.1 g/dL (32.0-36.0); Mean Corpuscular Volume 89.8 fL (80.0-100.0); Monocytes # (auto) 1.3 10 ^3/uL (0-1.3); Monocytes % (auto) 8.5 % (0.0-12.0); Neutrophils # (auto) 11.8 10 ^3/uL (1.6-8.6); Neutrophils % (auto) 79.9 % (37.0-80.0); Nucleated Red Blood Cells % 0.4 %; Red Blood Cells 3.36 10^6/uL (4.5-5.90); Red Cell Distribution Width 15.7 % (11.8-14.3); White Blood Cell 14.8 10^3/uL (4.4-10.8)
[2021-07-16 04:04] LABS: Albumin 2.3 g/dL (3.4-5.0); BUN/Creatinine Ratio 10.8; Calcium 7.8 mg/dL (8.5-10.1); Magnesium 2.4 mg/dL (1.6-2.6); Potassium 4.9 mmol/L (3.5-5.1)
[2021-07-16 04:06] LABS: INR 1.07 (0.9-1.15)
[2021-07-16 04:13] LABS: Bilirubin, Total 0.6 mg/dL (0.2-1.0); CRP High Sensitivity 14.5 mg/dL (< 0.3); Total Protein 7.6 g/dL (6.4-8.2)
[2021-07-16] MEDS: InsuLIN REG 1unit/0.01ml Soln (100units/ml) SC SCH ×4 (06:00→18:00)
[2021-07-16] MEDS: ACCU-CHEK COMFORT CURVE STRIP VI SCH ×4 (06:00→17:40)
[2021-07-16] MEDS: ALBUTEROL SULF 2.5 MG/0.5ML(0.5%) NEB SOLN NEB PRN ×2 (07:12→22:09)
[2021-07-16] MEDS: BUDESONIDE (INHALATION) 0.5 MG/2 ML NEB NEB SCH ×2 (07:12→22:09)
[2021-07-16] MEDS: PHENYLEPHRINE IV 250 ML IV SCH (08:00)
[2021-07-16] MEDS: INSULIN LANTUS (GLARGINE) 1 /0.01ml (100units/ml) SC SCH (10:00)
[2021-07-16] MEDS: CALCIUM ACETATE 667 MG CAP PO SCH ×3 (10:06→17:40)
[2021-07-16] MEDS: DexAMETHasone SOD PHOS 10MG/1ML VIAL INJ IV SCH (10:06)
[2021-07-16] MEDS: CHOLECALCIFEROL (VITD3) 2,000 UNIT CAP/TAB PO SCH (10:07)
[2021-07-16] MEDS: SODIUM CHLOR 0.9% PF (SALINE LOCK) 10ML VIAL/SYR IV SCH ×2 (10:07→22:00)
[2021-07-16] MEDS: VASOPRESSIN 50 UNITS in D5W 5% 247.5 ML IV SCH (12:00)
[2021-07-16] MEDS: ENOXAPARIN SOD 150 MG/1 ML SYRINGE SC SCH (12:23)
[2021-07-16] MEDS ORDERED: BUMETANIDE 2.5mg/10ml (0.25 mg/ml) INJ IV ONE (12:45)
[2021-07-16] MEDS ORDERED: SODIUM BICARBONATE 8.4 % INJ 50ML VIAL IV ONE (13:30)
[2021-07-16] MEDS ORDERED: ENOXAPARIN SOD 80 MG/0.8ML SYRINGE SC ONE (17:00)
[2021-07-16] MEDS: DOPamine 1600MCG/ML D5W 250 ML IV SCH (17:00)
[2021-07-16] MEDS: PHENYLEPHRINE INJ 80 MG in SODIUM CHL 0.9% 242 ML IV SCH (18:59)
[2021-07-16] MEDS ORDERED: LINEZOLID 600MG/300ML 300 ML IV ONE (23:45)
[2021-07-17] VITALS (55 sets, daily range): BP systolic 80–193; BP diastolic 42–90
[2021-07-17] MEDS: ACCU-CHEK COMFORT CURVE STRIP VI SCH ×4 (00:15→17:06)
[2021-07-17] MEDS: InsuLIN REG 1unit/0.01ml Soln (100units/ml) SC SCH ×5 (00:16→23:44)
[2021-07-17] MEDS: Glucerna 1.2 Cal 1Liter BOTTLE GT SCH ×6 (02:00→22:00)
[2021-07-17 05:13] LABS: Basophils # (auto) 0.1 10 ^3/uL (0-0.2); Basophils % (auto) 0.4 % (0.0-2.0); Eosinophils # (auto) 0.6 10 ^3/uL (0-0.8); Eosinophils % (auto) 4.7 % (0.0-7.0); Hematocrit 28.5 % (41.0-53.0); Hemoglobin 9.2 g/dL (13.5-17.5); Lymphocytes % (auto) 7.3 % (10.0-50.0); Mean Corpuscular Hemoglobin 28.4 pg (28.0-32.0); Mean Corpuscular Hgb Conc. 32.2 g/dL (32.0-36.0); Mean Corpuscular Volume 88.3 fL (80.0-100.0); Monocytes # (auto) 1.3 10 ^3/uL (0-1.3); Monocytes % (auto) 9.8 % (0.0-12.0); Neutrophils # (auto) 10.4 10 ^3/uL (1.6-8.6); Neutrophils % (auto) 77.8 % (37.0-80.0); Nucleated Red Blood Cells % 0.3 %; Red Blood Cells 3.23 10^6/uL (4.5-5.90); Red Cell Distribution Width 15.7 % (11.8-14.3); White Blood Cell 13.4 10^3/uL (4.4-10.8)
[2021-07-17 05:37] LABS: BUN/Creatinine Ratio 11.4; Calcium 7.8 mg/dL (8.5-10.1)
[2021-07-17] MEDS: NOREPINEPHRINE 8 MG/250ML KIT 250 ML IV SCH (06:00)
[2021-07-17] MEDS: BUDESONIDE (INHALATION) 0.5 MG/2 ML NEB NEB SCH ×2 (06:18→22:24)
[2021-07-17] MEDS: ALBUTEROL SULF 2.5 MG/0.5ML(0.5%) NEB SOLN NEB PRN ×2 (06:18→22:24)
[2021-07-17 06:43] LABS: Potassium 5.6 mmol/L (3.5-5.1)
[2021-07-17] MEDS ORDERED: AMIODARONE 450mg/250ml AE 250 ML IV ONE (08:24)
[2021-07-17] MEDS ORDERED: DIGOXIN (250MCG/ML) 2 ML AMPULE IV ONE ×2 (08:30→10:15)
[2021-07-17] MEDS ORDERED: FUROSEMIDE 40 MG/4 ML VIAL IV ONE (08:30)
[2021-07-17] MEDS ORDERED: AMIODARONE HCL 150 MG in D5W 5% 100 ML IV ONE (08:30)
[2021-07-17] MEDS ORDERED: SODIUM BICARBONATE 8.4% INJ 50ML SYRINGE IV ONE (08:30)
[2021-07-17] MEDS ORDERED: SODIUM ZIRCONIUM CYCL 10 GM PAK PO ONE (08:30)
[2021-07-17] MEDS ORDERED: AMIODARONE 450mg/250ml AE 250 ML IV SCH (08:45)
[2021-07-17] MEDS: PROPOFOL 100 ML IV SCH ×3 (08:58→18:09)
[2021-07-17] MEDS: DexAMETHasone SOD PHOS 10MG/1ML VIAL INJ IV SCH (09:41)
[2021-07-17] MEDS: CALCIUM ACETATE 667 MG CAP PO SCH ×3 (09:41→17:08)
[2021-07-17] MEDS: MEROPENEM 1GM IVPB 100 ML IV SCH (09:42)
[2021-07-17] MEDS: SODIUM CHLOR 0.9% PF (SALINE LOCK) 10ML VIAL/SYR IV SCH ×2 (09:42→22:00)
[2021-07-17] MEDS: PANTOPRAZOLE 40 MG/10 ML VIAL INJ IV SCH ×2 (09:42→22:00)
[2021-07-17] MEDS: INSULIN LANTUS (GLARGINE) 1 /0.01ml (100units/ml) SC SCH (09:43)
[2021-07-17] MEDS: CHOLECALCIFEROL (VITD3) 2,000 UNIT CAP/TAB PO SCH (09:43)
[2021-07-17] MEDS: ENOXAPARIN SOD 150 MG/1 ML SYRINGE SC SCH (09:44)
[2021-07-17] MEDS: DOPamine 1600MCG/ML D5W 250 ML IV SCH (10:02)
[2021-07-17] MEDS: MIDAZOLAM DRIP 50 mg/50mL 50 ML IV SCH ×3 (10:12→15:57)
[2021-07-17] MEDS ORDERED: ONDANSETRON HCL 4 MG/2 ML VIAL ONE (10:31)
[2021-07-17] MEDS: LINEZOLID 600MG/300ML 300 ML IV SCH ×2 (11:04→22:00)
[2021-07-17] MEDS ORDERED: ROCURONIUM 10MG/ML 10ML VIAL IV ONE (11:11)
[2021-07-17] MEDS: VASOPRESSIN 50 UNITS in D5W 5% 247.5 ML IV SCH (13:30)
[2021-07-17] MEDS: SODIUM ZIRCONIUM CYCL 10 GM PAK PO SCH ×2 (13:51→23:40)
[2021-07-17] MEDS: PHENYLEPHRINE INJ 80 MG in SODIUM CHL 0.9% 242 ML IV SCH (13:53)
[2021-07-17] MEDS: AMIODARONE 450mg/250ml AE 250 ML IV SCH ×2 (15:07→18:59)
[2021-07-17] MEDS: fentaNYL Drip 2500mCg/250mlNS 250 ML IV SCH ×2 (17:07→19:13)
[2021-07-17 22:40] LABS: Basophils # (auto) 0.1 10 ^3/uL (0-0.2); Eosinophils # (auto) 0 10 ^3/uL (0-0.8); Eosinophils % (auto) 0.4 % (0.0-7.0); Hematocrit 29.8 % (41.0-53.0); Hemoglobin 9.7 g/dL (13.5-17.5); Lymphocytes # (auto) 0.3 10 ^3/uL (0.4-5.4); Lymphocytes % (auto) 3.4 % (10.0-50.0); Mean Corpuscular Hemoglobin 28.9 pg (28.0-32.0); Mean Corpuscular Hgb Conc. 32.5 g/dL (32.0-36.0); Mean Corpuscular Volume 88.8 fL (80.0-100.0); Monocytes # (auto) 0.5 10 ^3/uL (0-1.3); Monocytes % (auto) 5.5 % (0.0-12.0); Neutrophils # (auto) 8.1 10 ^3/uL (1.6-8.6); Neutrophils % (auto) 89.7 % (37.0-80.0); Nucleated Red Blood Cells % 0.7 %; Red Blood Cells 3.35 10^6/uL (4.5-5.90); Red Cell Distribution Width 15.6 % (11.8-14.3)
[2021-07-17 22:49] LABS: Albumin 2.2 g/dL (3.4-5.0); Calcium 7.8 mg/dL (8.5-10.1); Magnesium 3.6 mg/dL (1.6-2.6)
[2021-07-17 22:54] LABS: Bilirubin, Total 0.8 mg/dL (0.2-1.0); Total Protein 7.5 g/dL (6.4-8.2)
[2021-07-17 22:56] LABS: INR 1.16 (0.9-1.15); Partial Thromboplastin Time 32.2 sec (23.6-33.0)
[2021-07-17 23:14] LABS: BUN/Creatinine Ratio 11.8
[2021-07-17 23:15] LABS: Phosphorus 9.7 mg/dL (2.5-4.90); Potassium 6.2 mmol/L (3.5-5.1)
[2021-07-18] VITALS (25 sets, daily range): BP systolic 62–140; BP diastolic 26–83
[2021-07-18] MEDS: ACCU-CHEK COMFORT CURVE STRIP VI SCH ×4 (00:13→17:16)
[2021-07-18] MEDS: Glucerna 1.2 Cal 1Liter BOTTLE GT SCH ×6 (02:00→22:14)
[2021-07-18] MEDS: BUDESONIDE (INHALATION) 0.5 MG/2 ML NEB NEB SCH ×2 (05:47→22:18)
[2021-07-18] MEDS: ALBUTEROL SULF 2.5 MG/0.5ML(0.5%) NEB SOLN NEB PRN (05:47)
[2021-07-18] MEDS: InsuLIN REG 1unit/0.01ml Soln (100units/ml) SC SCH ×3 (06:00→17:17)
[2021-07-18] MEDS: NOREPINEPHRINE 8 MG/250ML KIT 250 ML IV SCH (06:00)
[2021-07-18] MEDS: SODIUM ZIRCONIUM CYCL 10 GM PAK PO SCH ×2 (06:00→14:46)
[2021-07-18] MEDS: fentaNYL Drip 2500mCg/250mlNS 250 ML IV SCH ×2 (07:45→18:04)
[2021-07-18] MEDS: AMIODARONE 450mg/250ml AE 250 ML IV SCH ×2 (08:13→23:23)
[2021-07-18] MEDS: INSULIN LANTUS (GLARGINE) 1 /0.01ml (100units/ml) SC SCH (08:42)
[2021-07-18] MEDS: ALBUMIN 25% 100 ML IV SCH ×2 (09:00→09:04)
[2021-07-18] MEDS: PANTOPRAZOLE 40 MG/10 ML VIAL INJ IV SCH ×2 (09:20→22:14)
[2021-07-18] MEDS: SODIUM CHLOR 0.9% PF (SALINE LOCK) 10ML VIAL/SYR IV SCH ×2 (09:20→22:14)
[2021-07-18] MEDS: CALCIUM ACETATE 667 MG CAP PO SCH ×3 (09:20→17:16)
[2021-07-18] MEDS: DexAMETHasone SOD PHOS 10MG/1ML VIAL INJ IV SCH (09:20)
[2021-07-18] MEDS: CHOLECALCIFEROL (VITD3) 2,000 UNIT CAP/TAB PO SCH (09:21)
[2021-07-18] MEDS: ENOXAPARIN SOD 150 MG/1 ML SYRINGE SC SCH (09:21)
[2021-07-18] MEDS: LINEZOLID 600MG/300ML 300 ML IV SCH ×2 (09:21→22:14)
[2021-07-18] MEDS: FLORASTOR (S. BOULARDII) 250 MG CAP PO SCH (11:22)
[2021-07-18] MEDS: PHENYLEPHRINE INJ 80 MG in SODIUM CHL 0.9% 242 ML IV SCH (12:10)
[2021-07-18] MEDS: VASOPRESSIN 50 UNITS in D5W 5% 247.5 ML IV SCH (13:30)
[2021-07-18] MEDS: MIDAZOLAM DRIP 50 mg/50mL 50 ML IV SCH ×3 (14:47→23:25)
[2021-07-18 14:55] LABS: Basophils # (auto) 0.2 10 ^3/uL (0-0.2); Basophils % (auto) 1.5 % (0.0-2.0); Eosinophils # (auto) 0.2 10 ^3/uL (0-0.8); Eosinophils % (auto) 1.7 % (0.0-7.0); Hematocrit 27.7 % (41.0-53.0); Hemoglobin 9.3 g/dL (13.5-17.5); Lymphocytes # (auto) 0.5 10 ^3/uL (0.4-5.4); Lymphocytes % (auto) 3.6 % (10.0-50.0); Mean Corpuscular Hemoglobin 29.2 pg (28.0-32.0); Mean Corpuscular Hgb Conc. 33.4 g/dL (32.0-36.0); Mean Corpuscular Volume 87.3 fL (80.0-100.0); Monocytes # (auto) 0.9 10 ^3/uL (0-1.3); Monocytes % (auto) 6.8 % (0.0-12.0); Neutrophils # (auto) 11.9 10 ^3/uL (1.6-8.6); Neutrophils % (auto) 86.4 % (37.0-80.0); Nucleated Red Blood Cells % 0.7 %; Red Blood Cells 3.18 10^6/uL (4.5-5.90); Red Cell Distribution Width 15.9 % (11.8-14.3); White Blood Cell 13.8 10^3/uL (4.4-10.8)
[2021-07-18] MEDS: PROPOFOL 100 ML IV SCH ×3 (15:13→23:24)
[2021-07-18 15:54] LABS: Anion Gap 13 (5-15); BUN/Creatinine Ratio 11.2; Blood Urea Nitrogen 50 mg/dL (7-18); Carbon Dioxide 23 mmol/L (21-32); Chloride 97 mmol/L (98-107); GFR African American 18 mL/min; GFR Non-African American 15 mL/min; Glucose 194 mg/dL (74-106); Potassium 4.3 mmol/L (3.5-5.1); Sodium 133 mmol/L (136-145)
[2021-07-18 15:55] LABS: Calcium 7.9 mg/dL (8.5-10.1)
[2021-07-18] MEDS: MEROPENEM 1GM IVPB 100 ML IV SCH (17:15)
[2021-07-19] VITALS (32 sets, daily range): BP systolic 89–169; BP diastolic 47–75
[2021-07-19] MEDS: ACCU-CHEK COMFORT CURVE STRIP VI SCH ×4 (00:13→17:16)
[2021-07-19] MEDS: Glucerna 1.2 Cal 1Liter BOTTLE GT SCH ×5 (01:48→17:15)
[2021-07-19] MEDS: PHENYLEPHRINE INJ 80 MG in SODIUM CHL 0.9% 242 ML IV SCH (03:00)
[2021-07-19] MEDS: fentaNYL Drip 2500mCg/250mlNS 250 ML IV SCH ×2 (04:41→17:05)
[2021-07-19] MEDS: InsuLIN REG 1unit/0.01ml Soln (100units/ml) SC SCH ×4 (05:28→17:16)
[2021-07-19] MEDS: NOREPINEPHRINE 8 MG/250ML KIT 250 ML IV SCH (06:00)
[2021-07-19] MEDS: PROPOFOL 100 ML IV SCH ×4 (06:28→21:57)
[2021-07-19] MEDS: MIDAZOLAM DRIP 50 mg/50mL 50 ML IV SCH ×3 (06:28→18:26)
[2021-07-19 09:11] LABS: BUN/Creatinine Ratio 12.2; Calcium 7.9 mg/dL (8.5-10.1); Potassium 4.3 mmol/L (3.5-5.1)
[2021-07-19] MEDS: SODIUM CHLOR 0.9% PF (SALINE LOCK) 10ML VIAL/SYR IV SCH ×2 (09:24→21:49)
[2021-07-19] MEDS: PANTOPRAZOLE 40 MG/10 ML VIAL INJ IV SCH ×2 (09:24→21:47)
[2021-07-19] MEDS: CALCIUM ACETATE 667 MG CAP PO SCH ×3 (09:24→17:16)
[2021-07-19] MEDS: DexAMETHasone SOD PHOS 4 MG/1ML SDV INJ IV SCH (09:24)
[2021-07-19] MEDS: LINEZOLID 600MG/300ML 300 ML IV SCH ×2 (09:25→21:50)
[2021-07-19] MEDS: CHOLECALCIFEROL (VITD3) 2,000 UNIT CAP/TAB PO SCH (09:25)
[2021-07-19] MEDS: FLORASTOR (S. BOULARDII) 250 MG CAP PO SCH (09:25)
[2021-07-19] MEDS: ENOXAPARIN SOD 150 MG/1 ML SYRINGE SC SCH (09:26)
[2021-07-19] MEDS: BUDESONIDE (INHALATION) 0.5 MG/2 ML NEB NEB SCH ×2 (10:32→22:00)
[2021-07-19] MEDS: ALBUTEROL SULF 2.5 MG/0.5ML(0.5%) NEB SOLN NEB PRN (10:32)
[2021-07-19] MEDS: INSULIN LANTUS (GLARGINE) 1 /0.01ml (100units/ml) SC SCH (11:08)
[2021-07-19] MEDS: VASOPRESSIN 50 UNITS in D5W 5% 247.5 ML IV SCH (13:30)
[2021-07-19] MEDS: MEROPENEM 1GM IVPB 100 ML IV SCH (17:15)
[2021-07-19] MEDS: ROCURONIUM BROMIDE 1,000 MG in D5W 5% 150 ML IV SCH (21:15)
[2021-07-20] VITALS (22 sets, daily range): BP systolic 91–164; BP diastolic 40–75
[2021-07-20] MEDS: FLUCONAZOLE 200MG/100ML 100 ML IV SCH ×2 (01:00→02:00)
[2021-07-20] MEDS: Glucerna 1.2 Cal 1Liter BOTTLE GT SCH ×7 (02:00→22:00)
[2021-07-20] MEDS: AMIODARONE 450mg/250ml AE 250 ML IV SCH (03:12)
[2021-07-20] MEDS: PROPOFOL 100 ML IV SCH ×4 (03:13→06:51)
[2021-07-20] MEDS: MIDAZOLAM DRIP 50 mg/50mL 50 ML IV SCH ×3 (03:14→21:04)
[2021-07-20] MEDS: ACCU-CHEK COMFORT CURVE STRIP VI SCH ×4 (06:00→18:10)
[2021-07-20] MEDS: InsuLIN REG 1unit/0.01ml Soln (100units/ml) SC SCH ×4 (06:00→18:00)
[2021-07-20] MEDS: ALBUTEROL SULF 2.5 MG/0.5ML(0.5%) NEB SOLN NEB PRN ×2 (06:41→22:32)
[2021-07-20] MEDS: BUDESONIDE (INHALATION) 0.5 MG/2 ML NEB NEB SCH ×2 (06:41→22:32)
[2021-07-20] MEDS ORDERED: ALBUMIN 25% 100 ML IV PRN (07:00)
[2021-07-20] MEDS: CALCIUM ACETATE 667 MG CAP PO SCH ×3 (08:00→18:10)
[2021-07-20] MEDS: NOREPINEPHRINE 8 MG/250ML KIT 250 ML IV SCH (09:00)
[2021-07-20 09:11] LABS: Albumin 2.2 g/dL (3.4-5.0); Calcium 7.6 mg/dL (8.5-10.1); Magnesium 3.1 mg/dL (1.6-2.6)
[2021-07-20] MEDS: SODIUM CHLOR 0.9% PF (SALINE LOCK) 10ML VIAL/SYR IV SCH ×2 (09:11→21:08)
[2021-07-20] MEDS: LINEZOLID 600MG/300ML 300 ML IV SCH ×2 (09:11→21:09)
[2021-07-20] MEDS: PANTOPRAZOLE 40 MG/10 ML VIAL INJ IV SCH ×2 (09:11→21:07)
[2021-07-20] MEDS: DexAMETHasone SOD PHOS 4 MG/1ML SDV INJ IV SCH (09:11)
[2021-07-20] MEDS: CHOLECALCIFEROL (VITD3) 2,000 UNIT CAP/TAB PO SCH (09:12)
[2021-07-20] MEDS: FLORASTOR (S. BOULARDII) 250 MG CAP PO SCH (09:12)
[2021-07-20] MEDS: ENOXAPARIN SOD 150 MG/1 ML SYRINGE SC SCH (09:12)
[2021-07-20 09:15] LABS: Bilirubin, Total 0.6 mg/dL (0.2-1.0); Total Protein 7.2 g/dL (6.4-8.2)
[2021-07-20 09:57] LABS: CRP High Sensitivity 6.61 mg/dL (< 0.3)
[2021-07-20 09:59] LABS: Potassium 6.1 mmol/L (3.5-5.1)
[2021-07-20] MEDS: ROCURONIUM BROMIDE 1,000 MG in D5W 5% 150 ML IV SCH ×2 (10:27→23:39)
[2021-07-20 11:20] LABS: Hematocrit 27.5 % (41.0-53.0); Hemoglobin 8.9 g/dL (13.5-17.5); Mean Corpuscular Hemoglobin 28.7 pg (28.0-32.0); Mean Corpuscular Hgb Conc. 32.3 g/dL (32.0-36.0); Mean Corpuscular Volume 88.8 fL (80.0-100.0); Red Cell Distribution Width 15.9 % (11.8-14.3); White Blood Cell 19.9 10^3/uL (4.4-10.8)
[2021-07-20 11:51] LABS: INR 1.11 (0.9-1.15)
[2021-07-20] MEDS: INSULIN LANTUS (GLARGINE) 1 /0.01ml (100units/ml) SC SCH (12:02)
[2021-07-20 12:12] LABS: Basophils % (manual) 0 (0.0-2.0); Blast Cells 0; Metamyelocytes % 0; Myelocytes % 0; Promyelocytes % 0; Reactive Lymphocytes 0
[2021-07-20] MEDS ORDERED: AMIODARONE HCL 200 MG TAB PO ONE (12:30)
[2021-07-20] MEDS: VASOPRESSIN 50 UNITS in D5W 5% 247.5 ML IV SCH (13:30)
[2021-07-20 15:33] LABS: Band Neutrophils % (manual) 6; Eosinophils % (manual) 15 (0-7); Lymphocytes % (manual) 3 (10.0-50.0); Monocytes % (manual) 2 (0-12)
[2021-07-20] MEDS: fentaNYL Drip 2500mCg/250mlNS 250 ML IV SCH (17:30)
[2021-07-20] MEDS: MEROPENEM 1GM IVPB 100 ML IV SCH (18:02)
[2021-07-20] MEDS: DOPamine 1600MCG/ML D5W 250 ML IV SCH (18:08)
[2021-07-20] MEDS: PHENYLEPHRINE INJ 80 MG in SODIUM CHL 0.9% 242 ML IV SCH (18:38)
[2021-07-20] MEDS ORDERED: EPOETIN ALFA-EPBX 4,000 UNIT/ML VIAL SC ONE (21:00)
[2021-07-20] MEDS: AMIODARONE HCL 200 MG TAB PO SCH (21:10)
[2021-07-21] VITALS (19 sets, daily range): BP systolic 100–142; BP diastolic 52–70
[2021-07-21] MEDS: FLUCONAZOLE 200MG/100ML 100 ML IV SCH ×2 (01:00→02:00)
[2021-07-21] MEDS: Glucerna 1.2 Cal 1Liter BOTTLE GT SCH ×6 (02:00→22:00)
[2021-07-21] MEDS: DOPamine 1600MCG/ML D5W 250 ML IV SCH ×4 (02:26→23:20)
[2021-07-21] MEDS: PROPOFOL 100 ML IV SCH ×4 (05:01→22:08)
[2021-07-21] MEDS: InsuLIN REG 1unit/0.01ml Soln (100units/ml) SC SCH ×5 (06:00→23:22)
[2021-07-21] MEDS: ACCU-CHEK COMFORT CURVE STRIP VI SCH ×3 (06:00→17:38)
[2021-07-21] MEDS: NOREPINEPHRINE 8 MG/250ML KIT 250 ML IV SCH (06:00)
[2021-07-21] MEDS: ALBUTEROL SULF 2.5 MG/0.5ML(0.5%) NEB SOLN NEB PRN (06:35)
[2021-07-21] MEDS: BUDESONIDE (INHALATION) 0.5 MG/2 ML NEB NEB SCH ×2 (06:35→18:58)
[2021-07-21] MEDS: MIDAZOLAM DRIP 50 mg/50mL 50 ML IV SCH ×3 (07:26→22:42)
[2021-07-21] MEDS: CALCIUM ACETATE 667 MG CAP PO SCH ×3 (08:00→17:38)
[2021-07-21] MEDS: CHOLECALCIFEROL (VITD3) 2,000 UNIT CAP/TAB PO SCH (09:48)
[2021-07-21] MEDS: LINEZOLID 600MG/300ML 300 ML IV SCH ×2 (09:48→22:39)
[2021-07-21] MEDS: ENOXAPARIN SOD 150 MG/1 ML SYRINGE SC SCH (09:48)
[2021-07-21] MEDS: AMIODARONE HCL 200 MG TAB PO SCH ×2 (09:48→22:39)
[2021-07-21] MEDS: SODIUM CHLOR 0.9% PF (SALINE LOCK) 10ML VIAL/SYR IV SCH ×2 (09:48→22:39)
[2021-07-21] MEDS: DexAMETHasone SOD PHOS 4 MG/1ML SDV INJ IV SCH (09:48)
[2021-07-21] MEDS: FLORASTOR (S. BOULARDII) 250 MG CAP PO SCH (09:48)
[2021-07-21] MEDS: PANTOPRAZOLE 40 MG/10 ML VIAL INJ IV SCH ×2 (09:48→22:00)
[2021-07-21] MEDS: INSULIN LANTUS (GLARGINE) 1 /0.01ml (100units/ml) SC SCH (12:21)
[2021-07-21] MEDS: ROCURONIUM BROMIDE 1,000 MG in D5W 5% 150 ML IV SCH (12:51)
[2021-07-21] MEDS: VASOPRESSIN 50 UNITS in D5W 5% 247.5 ML IV SCH (13:23)
[2021-07-21] MEDS: fentaNYL Drip 2500mCg/250mlNS 250 ML IV SCH (17:34)
[2021-07-21] MEDS: MEROPENEM 1GM IVPB 100 ML IV SCH (17:38)
[2021-07-21] MEDS: PHENYLEPHRINE INJ 80 MG in SODIUM CHL 0.9% 242 ML IV SCH (18:31)
[2021-07-21] MEDS ORDERED: EPOETIN ALFA-EPBX 4,000 UNIT/ML VIAL SC ONE (21:00)
[2021-07-21 23:33] LABS: Mean Corpuscular Volume 87.6 fL (80.0-100.0); Nucleated Red Blood Cells % 0.7 %; White Blood Cell 16.3 10^3/uL (4.4-10.8)
[2021-07-21 23:36] LABS: Basophils # (auto) 0.1 10 ^3/uL (0-0.2); Basophils % (auto) 0.5 % (0.0-2.0); Eosinophils # (auto) 0.6 10 ^3/uL (0-0.8); Eosinophils % (auto) 3.8 % (0.0-7.0); Hematocrit 25.8 % (41.0-53.0); Hemoglobin 8.4 g/dL (13.5-17.5); Lymphocytes # (auto) 0.6 10 ^3/uL (0.4-5.4); Lymphocytes % (auto) 3.7 % (10.0-50.0); Mean Corpuscular Hemoglobin 28.7 pg (28.0-32.0); Mean Corpuscular Hgb Conc. 32.7 g/dL (32.0-36.0); Monocytes # (auto) 0.6 10 ^3/uL (0-1.3); Monocytes % (auto) 3.9 % (0.0-12.0); Neutrophils # (auto) 14.4 10 ^3/uL (1.6-8.6); Neutrophils % (auto) 88.1 % (37.0-80.0); Red Blood Cells 2.95 10^6/uL (4.5-5.90); Red Cell Distribution Width 15.5 % (11.8-14.3)
[2021-07-22] VITALS (21 sets, daily range): BP systolic 92–127; BP diastolic 48–62
[2021-07-22] MEDS: ACCU-CHEK COMFORT CURVE STRIP VI SCH ×4 (00:09→17:46)
[2021-07-22] MEDS: PROPOFOL 100 ML IV SCH ×5 (00:11→19:00)
[2021-07-22] MEDS: FLUCONAZOLE 200MG/100ML 100 ML IV SCH ×2 (01:01→03:23)
[2021-07-22] MEDS: MIDAZOLAM DRIP 50 mg/50mL 50 ML IV SCH ×4 (01:03→22:38)
[2021-07-22] MEDS: Glucerna 1.2 Cal 1Liter BOTTLE GT SCH ×6 (02:00→22:18)
[2021-07-22] MEDS: ROCURONIUM BROMIDE 1,000 MG in D5W 5% 150 ML IV SCH ×2 (02:03→15:15)
[2021-07-22] MEDS: fentaNYL Drip 2500mCg/250mlNS 250 ML IV SCH ×2 (03:35→16:00)
[2021-07-22] MEDS: InsuLIN REG 1unit/0.01ml Soln (100units/ml) SC SCH ×3 (05:39→17:46)
[2021-07-22] MEDS: NOREPINEPHRINE 8 MG/250ML KIT 250 ML IV SCH (06:00)
[2021-07-22 06:16] LABS: Basophils # (auto) 0.2 10 ^3/uL (0-0.2); Basophils % (auto) 1.2 % (0.0-2.0); Eosinophils # (auto) 1.5 10 ^3/uL (0-0.8); Eosinophils % (auto) 8.9 % (0.0-7.0); Hematocrit 25.1 % (41.0-53.0); Hemoglobin 8.5 g/dL (13.5-17.5); Lymphocytes # (auto) 0.8 10 ^3/uL (0.4-5.4); Lymphocytes % (auto) 4.8 % (10.0-50.0); Mean Corpuscular Hemoglobin 29.9 pg (28.0-32.0); Mean Corpuscular Hgb Conc. 33.8 g/dL (32.0-36.0); Mean Corpuscular Volume 88.5 fL (80.0-100.0); Monocytes # (auto) 0.5 10 ^3/uL (0-1.3); Monocytes % (auto) 3.2 % (0.0-12.0); Neutrophils # (auto) 13.5 10 ^3/uL (1.6-8.6); Neutrophils % (auto) 81.9 % (37.0-80.0); Nucleated Red Blood Cells % 1.1 %; Red Blood Cells 2.84 10^6/uL (4.5-5.90); Red Cell Distribution Width 15.6 % (11.8-14.3); White Blood Cell 16.5 10^3/uL (4.4-10.8)
[2021-07-22 06:33] LABS: Potassium 3.4 mmol/L (3.5-5.1)
[2021-07-22 06:39] LABS: BUN/Creatinine Ratio 10.3; Calcium 7.1 mg/dL (8.5-10.1); Phosphorus 5.5 mg/dL (2.5-4.90)
[2021-07-22] MEDS: CALCIUM ACETATE 667 MG CAP PO SCH ×3 (08:00→17:48)
[2021-07-22] MEDS: ALBUTEROL SULF 2.5 MG/0.5ML(0.5%) NEB SOLN NEB PRN ×3 (09:01→19:00)
[2021-07-22] MEDS: BUDESONIDE (INHALATION) 0.5 MG/2 ML NEB NEB SCH ×2 (09:01→19:01)
[2021-07-22] MEDS: ENOXAPARIN SOD 150 MG/1 ML SYRINGE SC SCH (10:10)
[2021-07-22] MEDS: PANTOPRAZOLE 40 MG/10 ML VIAL INJ IV SCH ×2 (10:10→22:24)
[2021-07-22] MEDS: SODIUM CHLOR 0.9% PF (SALINE LOCK) 10ML VIAL/SYR IV SCH ×2 (10:10→22:25)
[2021-07-22] MEDS: AMIODARONE HCL 200 MG TAB PO SCH ×2 (10:10→22:00)
[2021-07-22] MEDS: CHOLECALCIFEROL (VITD3) 2,000 UNIT CAP/TAB PO SCH (10:10)
[2021-07-22] MEDS: FLORASTOR (S. BOULARDII) 250 MG CAP PO SCH (10:10)
[2021-07-22] MEDS: LINEZOLID 600MG/300ML 300 ML IV SCH ×2 (10:10→22:30)
[2021-07-22] MEDS: INSULIN LANTUS (GLARGINE) 1 /0.01ml (100units/ml) SC SCH (12:00)
[2021-07-22] MEDS: DOPamine 1600MCG/ML D5W 250 ML IV SCH ×2 (12:10→20:36)
[2021-07-22] MEDS: VASOPRESSIN 50 UNITS in D5W 5% 247.5 ML IV SCH (13:30)
[2021-07-22] MEDS: MEROPENEM 1GM IVPB 100 ML IV SCH ×2 (17:48→18:00)
[2021-07-22] MEDS: PHENYLEPHRINE INJ 80 MG in SODIUM CHL 0.9% 242 ML IV SCH (17:48)
[2021-07-23] VITALS (14 sets, daily range): BP systolic 52–151; BP diastolic 25–67
[2021-07-23] MEDS: ACCU-CHEK COMFORT CURVE STRIP VI SCH ×4 (00:10→18:03)
[2021-07-23] MEDS: FLUCONAZOLE 200MG/100ML 100 ML IV SCH ×2 (01:00→02:00)
[2021-07-23] MEDS: Glucerna 1.2 Cal 1Liter BOTTLE GT SCH ×6 (02:00→22:11)
[2021-07-23] MEDS: ROCURONIUM BROMIDE 1,000 MG in D5W 5% 150 ML IV SCH ×2 (04:27→16:39)
[2021-07-23] MEDS: fentaNYL Drip 2500mCg/250mlNS 250 ML IV SCH (04:29)
[2021-07-23] MEDS: DOPamine 1600MCG/ML D5W 250 ML IV SCH ×3 (05:02→21:54)
[2021-07-23] MEDS: MEROPENEM 1GM IVPB 100 ML IV SCH ×2 (05:54→18:03)
[2021-07-23] MEDS: InsuLIN REG 1unit/0.01ml Soln (100units/ml) SC SCH ×4 (06:00→18:00)
[2021-07-23] MEDS: NOREPINEPHRINE 8 MG/250ML KIT 250 ML IV SCH (06:00)
[2021-07-23] MEDS: ALBUTEROL SULF 2.5 MG/0.5ML(0.5%) NEB SOLN NEB PRN ×3 (06:35→22:14)
[2021-07-23] MEDS: MIDAZOLAM DRIP 50 mg/50mL 50 ML IV SCH ×2 (07:11→22:08)
[2021-07-23 07:15] LABS: Basophils # (auto) 0.1 10 ^3/uL (0-0.2); Hemoglobin 8.3 g/dL (13.5-17.5); Lymphocytes # (auto) 0.9 10 ^3/uL (0.4-5.4); Nucleated Red Blood Cells % 0.3 %
[2021-07-23 07:16] LABS: Basophils % (auto) 0.7 % (0.0-2.0); Eosinophils # (auto) 1.9 10 ^3/uL (0-0.8); Eosinophils % (auto) 12.8 % (0.0-7.0); Hematocrit 25.1 % (41.0-53.0); Lymphocytes % (auto) 5.8 % (10.0-50.0); Mean Corpuscular Hemoglobin 29.1 pg (28.0-32.0); Mean Corpuscular Hgb Conc. 32.9 g/dL (32.0-36.0); Mean Corpuscular Volume 88.4 fL (80.0-100.0); Monocytes # (auto) 0.5 10 ^3/uL (0-1.3); Monocytes % (auto) 3.5 % (0.0-12.0); Neutrophils # (auto) 11.5 10 ^3/uL (1.6-8.6); Neutrophils % (auto) 77.2 % (37.0-80.0); Red Blood Cells 2.84 10^6/uL (4.5-5.90); Red Cell Distribution Width 15.5 % (11.8-14.3)
[2021-07-23 07:34] LABS: BUN/Creatinine Ratio 11.2; Potassium 3.2 mmol/L (3.5-5.1)
[2021-07-23] MEDS: FUROSEMIDE 100 MG/10ML VIAL IV SCH ×2 (08:00→18:03)
[2021-07-23] MEDS: CALCIUM ACETATE 667 MG CAP PO SCH ×3 (08:00→16:37)
[2021-07-23] MEDS: CHOLECALCIFEROL (VITD3) 2,000 UNIT CAP/TAB PO SCH (10:00)
[2021-07-23] MEDS: ENOXAPARIN SOD 150 MG/1 ML SYRINGE SC SCH (10:00)
[2021-07-23] MEDS: AMIODARONE HCL 200 MG TAB PO SCH ×2 (10:00→21:47)
[2021-07-23] MEDS: FLORASTOR (S. BOULARDII) 250 MG CAP PO SCH (10:00)
[2021-07-23] MEDS: PANTOPRAZOLE 40 MG/10 ML VIAL INJ IV SCH ×2 (10:29→21:45)
[2021-07-23] MEDS: LINEZOLID 600MG/300ML 300 ML IV SCH ×2 (10:29→21:45)
[2021-07-23] MEDS: SODIUM CHLOR 0.9% PF (SALINE LOCK) 10ML VIAL/SYR IV SCH ×2 (10:29→21:45)
[2021-07-23] MEDS: INSULIN LANTUS (GLARGINE) 1 /0.01ml (100units/ml) SC SCH (12:00)
[2021-07-23] MEDS: VASOPRESSIN 50 UNITS in D5W 5% 247.5 ML IV SCH (13:30)
[2021-07-23] MEDS: BUDESONIDE (INHALATION) 0.5 MG/2 ML NEB NEB SCH ×2 (15:22→22:14)
[2021-07-23] MEDS: PHENYLEPHRINE INJ 80 MG in SODIUM CHL 0.9% 242 ML IV SCH (19:00)
[2021-07-23] MEDS: PROPOFOL 100 ML IV SCH ×2 (20:25→23:51)
[2021-07-24 00:30] VITALS: BP 121/53
[2021-07-24] MEDS: FLUCONAZOLE 200MG/100ML 100 ML IV SCH ×2 (01:11→02:02)
[2021-07-24] MEDS: MIDAZOLAM DRIP 50 mg/50mL 50 ML IV SCH ×2 (01:12→03:49)
[2021-07-24] MEDS: Glucerna 1.2 Cal 1Liter BOTTLE GT SCH ×3 (02:00→10:00)
[2021-07-24] MEDS: PROPOFOL 100 ML IV SCH (03:44)
[2021-07-24] MEDS: fentaNYL Drip 2500mCg/250mlNS 250 ML IV SCH (03:44)
[2021-07-24] MEDS: DOPamine 1600MCG/ML D5W 250 ML IV SCH (03:45)
[2021-07-24] MEDS ORDERED: PHENYLEPHRINE IV 250 ML IV ONE (04:34)
[2021-07-24 05:23] LABS: Hemoglobin 8.8 g/dL (13.5-17.5); Mean Corpuscular Hemoglobin 29.3 pg (28.0-32.0); Mean Corpuscular Hgb Conc. 32.5 g/dL (32.0-36.0); Mean Corpuscular Volume 90.1 fL (80.0-100.0); White Blood Cell 18.9 10^3/uL (4.4-10.8)
[2021-07-24 05:42] LABS: Basophils % (manual) 0 (0.0-2.0); Blast Cells 0; Metamyelocytes % 0; Promyelocytes % 0; Reactive Lymphocytes 0
[2021-07-24 05:49] LABS: BUN/Creatinine Ratio 11.4; Calcium 6.8 mg/dL (8.5-10.1); Potassium 3.2 mmol/L (3.5-5.1)
[2021-07-24] MEDS: InsuLIN REG 1unit/0.01ml Soln (100units/ml) SC SCH ×2 (06:00)
[2021-07-24] MEDS: FUROSEMIDE 100 MG/10ML VIAL IV SCH (06:00)
[2021-07-24 06:01] LABS: Band Neutrophils % (manual) 11; Monocytes % (manual) 3 (0-12); Myelocytes % 6
[2021-07-24 06:02] LABS: Eosinophils % (manual) 12 (0-7); Lymphocytes % (manual) 14 (10.0-50.0)
[2021-07-24] MEDS: ALBUTEROL SULF 2.5 MG/0.5ML(0.5%) NEB SOLN NEB PRN (06:07)
[2021-07-24] MEDS: BUDESONIDE (INHALATION) 0.5 MG/2 ML NEB NEB SCH (06:07)
[2021-07-24] MEDS: MEROPENEM 1GM IVPB 100 ML IV SCH (06:20)
[2021-07-24] MEDS: NOREPINEPHRINE 8 MG/250ML KIT 250 ML IV SCH (06:21)
[2021-07-24] MEDS: ACCU-CHEK COMFORT CURVE STRIP VI SCH ×2 (06:21)
[2021-07-24 06:40] VITALS: BP 140/56
[2021-07-24] MEDS: ROCURONIUM BROMIDE 1,000 MG in D5W 5% 150 ML IV SCH (06:51)
[2021-07-24] MEDS: CALCIUM ACETATE 667 MG CAP PO SCH ×2 (08:00→10:36)
[2021-07-24 09:20] VITALS: BP 96/62
[2021-07-24] MEDS: PANTOPRAZOLE 40 MG/10 ML VIAL INJ IV SCH (10:00)
[2021-07-24] MEDS: FLORASTOR (S. BOULARDII) 250 MG CAP PO SCH (10:00)
[2021-07-24] MEDS: LINEZOLID 600MG/300ML 300 ML IV SCH (10:00)
[2021-07-24] MEDS: SODIUM CHLOR 0.9% PF (SALINE LOCK) 10ML VIAL/SYR IV SCH (10:00)
[2021-07-24] MEDS: AMIODARONE HCL 200 MG TAB PO SCH (10:00)
[2021-07-24] MEDS: ENOXAPARIN SOD 150 MG/1 ML SYRINGE SC SCH (10:00)
[2021-07-24] MEDS: CHOLECALCIFEROL (VITD3) 2,000 UNIT CAP/TAB PO SCH (10:00)
[2021-07-24] MEDS: INSULIN LANTUS (GLARGINE) 1 /0.01ml (100units/ml) SC SCH (10:36)
[2021-07-24] MEDS ORDERED: POTASSIUM CHL 10MEQ/50ML 50 ML IV SCH (12:30)
[2021-07-24] MEDS ORDERED: EPINEPHrine HCL 1 MG/10 ML SYRG IV ONE (13:11)
== END 2021-07-24 13:12 | DRG 870 ==
LOC: ER 12:30 → TELE 21:24 → TELE-WESTW 06-22 16:47 → ICU WEST 07-02 12:40
PROVIDERS: ADMIT Nurse Practitioner; ATTEND Internal Medicine
PROC: 3E0336Z Introduction of Nutritional Substance into Peripheral Vein, Percutaneous Approach (ICD-10-PCS; 2021-06-21)
PROC: 5A0935A Assistance with Respiratory Ventilation, Less than 24 Consecutive Hours, High Flow/Velocity Cannula (ICD-10-PCS; 2021-06-24)
PROC: XW033E5 Introduction of Remdesivir Anti-infective into Peripheral Vein, Percutaneous Approach, New Technology Group 5 (ICD-10-PCS; 2021-06-24)
PROC: 5A09557 Assistance with Respiratory Ventilation, Greater than 96 Consecutive Hours, Continuous Positive Airway Pressure (ICD-10-PCS; 2021-06-25)
PROC: 05HB33Z Insertion of Infusion Device into Right Basilic Vein, Percutaneous Approach (ICD-10-PCS; 2021-06-26)
PROC: B54MZZA Ultrasonography of Right Upper Extremity Veins, Guidance (ICD-10-PCS; 2021-06-26)
PROC: 5A1955Z Respiratory Ventilation, Greater than 96 Consecutive Hours (ICD-10-PCS; principal; 2021-07-02)
PROC: 0BH17EZ Insertion of Endotracheal Airway into Trachea, Via Natural or Artificial Opening (ICD-10-PCS; 2021-07-02)
PROC: 02HV33Z Insertion of Infusion Device into Superior Vena Cava, Percutaneous Approach (ICD-10-PCS; 2021-07-03)
PROC: B548ZZA Ultrasonography of Superior Vena Cava, Guidance (ICD-10-PCS; 2021-07-03)
PROC: 5A1D70Z Performance of Urinary Filtration, Intermittent, Less than 6 Hours Per Day (ICD-10-PCS; 2021-07-03)
PROC: 5A1D70Z Performance of Urinary Filtration, Intermittent, Less than 6 Hours Per Day (ICD-10-PCS; 2021-07-05)
PROC: 5A1D70Z Performance of Urinary Filtration, Intermittent, Less than 6 Hours Per Day (ICD-10-PCS; 2021-07-07)
PROC: 5A1D70Z Performance of Urinary Filtration, Intermittent, Less than 6 Hours Per Day (ICD-10-PCS; 2021-07-09)
PROC: 5A1D70Z Performance of Urinary Filtration, Intermittent, Less than 6 Hours Per Day (ICD-10-PCS; 2021-07-11)
PROC: 5A1D70Z Performance of Urinary Filtration, Intermittent, Less than 6 Hours Per Day (ICD-10-PCS; 2021-07-13)
PROC: 30233N1 Transfusion of Nonautologous Red Blood Cells into Peripheral Vein, Percutaneous Approach (ICD-10-PCS; 2021-07-15)
PROC: 5A1D70Z Performance of Urinary Filtration, Intermittent, Less than 6 Hours Per Day (ICD-10-PCS; 2021-07-15)
PROC: 0W9930Z Drainage of Right Pleural Cavity with Drainage Device, Percutaneous Approach (ICD-10-PCS; 2021-07-18)
PROC: 5A1D70Z Performance of Urinary Filtration, Intermittent, Less than 6 Hours Per Day (ICD-10-PCS; 2021-07-18)
PROC: 5A1D70Z Performance of Urinary Filtration, Intermittent, Less than 6 Hours Per Day (ICD-10-PCS; 2021-07-20)
PROC: 5A1D70Z Performance of Urinary Filtration, Intermittent, Less than 6 Hours Per Day (ICD-10-PCS; 2021-07-21)
PROC: 5A12012 Performance of Cardiac Output, Single, Manual (ICD-10-PCS; 2021-07-24)
DX: A41.89 Other specified sepsis (principal); U07.1 COVID-19; I21.A1 Myocardial infarction type 2; I50.33 Acute on chronic diastolic (congestive) heart failure; J12.82 Pneumonia due to coronavirus disease 2019; J96.01 Acute respiratory failure with hypoxia; R65.21 Severe sepsis with septic shock; N17.0 Acute kidney failure with tubular necrosis; J98.11 Atelectasis; N18.4 Chronic kidney disease, stage 4 (severe); J93.83 Other pneumothorax; Z68.42 Body mass index [BMI] 45.0-49.9, adult; B37.49 Other urogenital candidiasis; E87.1 Hypo-osmolality and hyponatremia; Z99.11 Dependence on respirator [ventilator] status; I13.0 Hypertensive heart and chronic kidney disease with heart failure and stage 1 through stage 4 chronic kidney disease, or unspecified chronic kidney disease; D89.834 Cytokine release syndrome, grade 4; I31.3 Pericardial effusion (noninflammatory); I82.401 Acute embolism and thrombosis of unspecified deep veins of right lower extremity; D69.59 Other secondary thrombocytopenia; E66.01 Morbid (severe) obesity due to excess calories; E87.5 Hyperkalemia; F41.9 Anxiety disorder, unspecified; L89.151 Pressure ulcer of sacral region, stage 1; E78.5 Hyperlipidemia, unspecified; D63.8 Anemia in other chronic diseases classified elsewhere; E83.51 Hypocalcemia; J98.2 Interstitial emphysema; E11.22 Type 2 diabetes mellitus with diabetic chronic kidney disease; E88.09 Other disorders of plasma-protein metabolism, not elsewhere classified; E11.65 Type 2 diabetes mellitus with hyperglycemia; I48.91 Unspecified atrial fibrillation; E83.39 Other disorders of phosphorus metabolism; E87.6 Hypokalemia; Z66 Do not resuscitate; Z51.5 Encounter for palliative care; Z83.3 Family history of diabetes mellitus; Z82.49 Family history of ischemic heart disease and other diseases of the circulatory system; Z91.030 Bee allergy status; Z82.3 Family history of stroke; Z82.5 Family history of asthma and other chronic lower respiratory diseases; Z86.718 Personal history of other venous thrombosis and embolism; Z23 Encounter for immunization; Z79.4 Long term (current) use of insulin
CPT/HCPCS: 36415; 36569; 36600; 71045; 71250; 76775; 80048; 80053; 80061; 81001; 82040; 82306; 82570; 82728; 82805; 82962; 83036; 83540; 83550; 83605; 83615; 83735; 83880; 84100; 84132; 84156; 84300; 84443; 84478; 84484; 85007; 85014; 85018; 85025; 85027; 85379; 85610; 85730; 86141; 86850; 86900; 86901; 86920; 87040; 87070; 87077; 87086; 87088; 87205; 87340; 87426; 87493; 90935; 92950; 93005; 93306; 93970; 94002; 94003; 94640; 94660; 96361; 96365; 96366; 96372; 96375; 96376; 99291; C9113; G0378; J0330; J1100; J1450; J1642; J1815; J2185; J2250; J2405; J2704; J3490; J7060; P9047